=== PATIENT | male | born 1950 | race Caucasian/White ===

== ENCOUNTER 2018-01-06 14:00 | Emergency (ER) | payer MEDICARE ==
[~2018-01-06] VITALS: Ht 177.8 cm; Wt 69.5 kg
[2018-01-06 14:19] VITALS: BP 147/83; Ht 177.8 cm; Wt 69.5 kg
[2018-01-06 14:59] LABS: BASOPHILS 0.2 % (0-2); EOSINOPHILS 0.5 % (0-7); HEMATOCRIT 34.6 % (42.0-54.0); HEMOGLOBIN 11.2 g/dL (13.5-17.5); IMMATURE GRANULOCYTES 0.3 % (0-5); LYMPHOCYTES 18.2 % (15-50); MCH 30.2 pg (26.0-34.0); MCHC 32.4 g/dL (31.0-37.0); MCV 93.3 fL (80.0-100.0); MEAN PLATELET VOLUME 11.3 fL (7.4-10.4); MONOCYTES 11.1 % (2-11); NEUTROPHILS 69.7 % (40-80); PLATELET COUNT 181 10x3/uL (130-400); RBC 3.71 10x6/uL (4.20-6.10); RDW 17.1 % (11.5-14.5)
[2018-01-06 15:15] LABS: ALBUMIN 3.6 g/dL (3.4-5.0); ANION GAP 17.1 mmol/L (8-16); BILIRUBIN - TOTAL 0.48 mg/dL (0.2-1.3); CALCIUM 8.6 mg/dL (8.5-10.1); CARBON DIOXIDE 28.3 mmol/L (21.0-32.0); CREATININE - SERUM 11.3 mg/dL (0.6-1.3); POTASSIUM - SERUM 4.4 mmol/L (3.5-5.1); PROTEIN - SERUM 7.6 g/dL (6.4-8.2)
== END 2018-01-06 18:46 | disposition home or self-care (01) ==
LOC: D.ER 14:00 → EDBD 14:00 → D.ER 18:46
PROVIDERS: Family Medicine
DX: K29.70 Gastritis, unspecified, without bleeding (principal); K59.00 Constipation, unspecified; I12.9 Hypertensive chronic kidney disease with stage 1 through stage 4 chronic kidney disease, or unspecified chronic kidney disease; N18.9 Chronic kidney disease, unspecified; Z99.2 Dependence on renal dialysis

== ENCOUNTER 2018-06-04 20:31 | Inpatient (IN) | payer MEDICARE ==
[~2018-06-04] VITALS: Ht 177.8 cm; Wt 66.6 kg
--- NOTE | ~2018-06-04 | HEMODYNAMI ---
PATIENT:PETEY REDDY MEDICAL RECORD: [id number] : 46 [address] [id number] ADMISSION DATE: 06/04/18 Generatedon:06/05/201811:10 Patient name: PETEY REDDY Patient #: [id number] SSN: : 1950 Date of study: 06/05/2018 Page: Of Hemodynamic Procedure Report Patient Data Patient Demographics Procedure consent was obtained First Name: PETEY Gender: Male Last Name: BARRY : 1950 Patient #: [id number] Age: 68 year(s) Race: Unknown Additional ID: [id number] Contact details [address]: [address] [place] [address] State: [place] City: [place] Zip code: [address] Past Medical History Allergies: No known allergies Admission Admission Data Admission Date: 06/04/2018 Admission Time: 20:57 Room #: 2136 Lab Results Lab Result Date: 06/05/2018 Lab Result Time: 0:00 Biochemistry Name Units Result Min Max BUN mg/dl 52 --(----)-* 7 18 Creatinine mg/dl 12.4 --(----)-* 0.6 1.3 CBC Name Units Result Min Max Hemoglobin g/dl 11.1 *-(----)-- 13.5 17.5 Procedure Procedure Types Cath Procedure Diagnostic Procedure LHC Coronaries w/Grafts Sedation Charges Moderate Sedation up to 15 minutes PCI Procedure AMI/SVG/SAND CONTROL WORKER PTCA or Stent SVG-BMS/WINSTON Initial Procedure Description Procedure Date Procedure Date: 06/05/2018 Procedure Start Time: 10:36 Procedure End Time: 11:05 Procedure Staff Name Function Landen Rodrigues MD Performing Physician Dusty Angela RT Scrub Hugh Moe RT Scrub Rosemarie Posey RT Monitor Itzel Field RN Nurse Procedure Data Cath Procedure Fluoroscopy Diagnostic fluoroscopy Total fluoroscopy Time: 9.2 time: 9.2 min min Diagnostic fluoroscopy Total fluoroscopy dose: 636 dose: 636 mGy mGy Contrast Material Contrast Material Type Amount (ml) Isovue 300 157 Entry Location Entry Primary Successful Side Size Upsize Upsize Entry Closure Succes sful Closure Location (Fr) 1 (Fr) 2 (Fr) Remarks Device Remarks Femoral Right 5 Fr vein Femoral Right 5 Fr 6 Fr Exoseal artery Short Estimated blood loss: 10 ml Diagnostic catheters Device Type Used For End Catheter Placement MULTIPACK JL 4.0 5Fr Procedure catheter MULTIPACK 3DRC 5Fr Procedure catheter DIAGNOSTIC AR1 MOD 5Fr Procedure catheter ([id number]) DIAGNOSTIC AL2 5Fr Procedure catheter ([id number]) DIAGNOSTIC LCB 5Fr Procedure catheter (014691G) MULTIPACK Pigtail 5 Fr Procedure catheter Procedure Complications No complications Procedure Medications Medication Administration Route Dosage 0.9% NaCl I.V. 100 ml/hr Oxygen etCO2 Nasal cannula 2 l/min Lidocaine 2% added to field 20 Heparin Flush Bag added to field 2 bags (1000units/500ml NS) Versed I.V. 2 mg Fentanyl I.V. 50 mcg Versed I.V. 2 mg Fentanyl I.V. 50 mcg Heparin Bolus I.V. 5000 units Plavix P.O. 75 mg Hemodynamics Rest HGB: 11.1 (g/dl) Heart Rate: 73 (bpm) Snapshots Pre Cath Intra NCS Post Cath Vital Signs Time Heart Resp SPO2 etCO2 NIBP (mmHg) Rhythm Pain Sedation Rate (ipm) (%) (mmHg) Status Level (bpm) 10:21:51 71 12 100 26 164/85(108) NSR 0 (11) 10(A) , No pain 10:26:17 68 14 100 29 166/85(105) NSR 0 (11) 10(A) , No pain 10:30:41 70 13 100 29.8 166/92(114) NSR 0 (11) 10(A) , No pain 10:35:03 69 14 100 36.5 158/91(105) NSR 0 (11) 10(A) , No pain 10:39:23 69 11 100 33.4 158/90(105) NSR 0 (11) 9(A) , No pain 10:43:44 72 10 100 30 142/80(102) NSR 0 (11) 10(A) , No pain 10:48:00 78 11 100 30 113/79(104) NSR 0 (11) 9(A) , No pain 10:52:07 73 11 100 25.3 127/77(99) NSR 0 (11) 9(A) , No pain 10:56:19 87 13 100 20.9 131/79(108) NSR 0 (11) 9(A) , No pain 11:00:29 88 11 100 21.6 150/93(124) NSR 0 (11) 10(A) , No pain 11:04:45 96 12 100 39.5 160/109(130) NSR 0 (11) 10(A) , No pain Medications Time Medication Route Dose Verified Delivered Reason Notes Effectiveness by by 10:25:52 0.9% NaCl I.V. 100 Landen Itzel used for ml/hr [facility] procedure MD PAULINO 10:25:58 Oxygen etCO2 2 Landen Itzel used for Nasal l/min [place] [facility] procedure cannula MD PAULINO 10:26:04 Lidocaine 2% added 20ml Landen Jcory for local to vial [facility] anesthetic field MD ASENCIO 10:26:10 Heparin Flush added 2 Landen Landen used for Bag to bags [facility] procedure (1000units/500ml field MD ASENCIO NS) 10:38:03 Versed I.V. 2 mg Landen Itzel for sedation [facility] MD, RN 10:38:09 Fentanyl I.V. 50 Landen Itzel for sedation mcg [facility] MD, RN 10:42:59 Versed I.V. 2 mg Landen Itzel for sedation [facility] MD, RN 10:43:05 Fentanyl I.V. 50 Landen Itzel for sedation [facility] MD, RN 10:52:56 Heparin Bolus I.V. 5000 Landen Itzel for verif ied units [facility] anticoagulation with Dr. MD PAULINO [place] 10:55:27 Plavix P.O. 75 mg Landen Robbins for [facility] antiplatelet MD PAULINO therapy Procedure Log Time Note 9:52:11 Signed procedure consent form obtained from patient. 9:52:13 Diagnostic Cath status Elective 9:52:14 Itzel Field RN sent for patient. Start room use. 10:07:49 Patient received from Med II to CCL 1 Alert and oriented. Tansferred to table in Supine position. 10:07:50 Warm blankets applied, and cherise hugger turned on for patient comfort. 10:07:51 Correct patient and procedure confirmed by team. 10:07:51 ECG and BP/O2 sat monitors applied to patient. 10:08:00 H&P Date Dictated: 06/04/2018 Within 30 days and on chart.. 10:08:01 Pre-procedure instructions explained to patient. 10:08:01 Pre-op teaching completed and patient verbalized understanding. 10:08:02 Family unavailable. 10:08:04 Patient NPO since Midnight. 10:08:11 Patient allergic to No known allergies 10:08:34 Lab Result : BUN 52 mg/dl 10:08:34 Lab Result : Hemoglobin 11.1 g/dl 10:08:34 Lab Result : Creatinine 12.4 mg/dl 10:18:42 Is the patient allergic to Iodine/contrast media? No. 10:18:44 Is patient on blood thinner?No 10:18:45 Patient diabetic? No. 10:18:49 Previous problem with sedation/anesthesia? No ? 10:18:50 Snore? No 10:18:51 Sleep apnea? No 10:18:52 Deviated septum? No 10:18:52 Opens mouth fully? Yes 10:18:53 Sticks out tongue? Yes 10:18:54 Airway obstruction? No ? 10:18:57 Dentures? No ? 10:19:00 Pre procedure: right dorsailis pedis pulse Doppler 10:19:04 Pre procedure: left dorsailis pedis pulse Doppler 10:19:31 IV started by Itzel Field RN inright hand with a 22 gauge IV catheter with 0.9% NaCl at KVO. 10:19:32 Lab results completed and on chart. 10:19:37 Right groin area was prepped with chlora-prep and draped in sterile fashion 10:20:01 Alarms reviewed by R. N. 10:20:02 Sharps counted by scrub and verified by R.N. 10:20:16 Use device set Femoral Dx 10:20:18 ACIST Syringe (70363) opened to sterile field. 10:20:19 Bag Decanter (2002S) opened to sterile field. 10:20:20 ACIST Hand Control (72071) opened to sterile field. 10:20:20 ACIST Manifold (79265) opened to sterile field. 10:20:21 Tegaderm 4 x 4 (1626W) opened to sterile field. 10:20:30 SHEATH 5FR [place] (CQH586) opened to sterile field. 10:20:31 Medline Cath Pack ([id number]) opened to sterile field. 10:20:31 DIAGNOSTIC WIRE .035 260cm J wire (745916) opened to sterile field. 10:20:32 DIAGNOSTIC Multipack 5Fr catheter set (KT1184) opened to sterile field. 10::39 Baseline sample Acquired. 10:20:39 Vital chart was started 10::43 Rhythm: sinus rhythm 10::44 Full Disclosure recording started 10:25:52 0.9% NaCl 100 ml/hr I.V. was administered by Itzel Field RN; used for procedure; 10:25:58 Oxygen 2 l/min etCO2 Nasal cannula was administered by Itzel Field RN; used for procedure; 10:26:04 Lidocaine 2% 20ml vial added to field was administered by Landen Rodrigues MD; for local anesthetic; 10:26:10 Heparin Flush Bag (1000units/500ml NS) 2 bags added to field was administered by Landen Rodrigues MD; used for procedure; 10:27:40 IV right hand D/C'd due to infiltration. 10:28:04 DR. RODRIGUES WILL ACCESS VEIN FOR MEDS. 10:30:38 --------ALL STOP TIME OUT------ 10::39 Final Timeout: patient, procedure, and site verified with staff and physician. All members of the team are in agreement. 10:30:43 Right groin site verified by team. 10:30:48 Fire Safety Assessment: A--An alcohol-based skin anteseptic being used preoperatively., C--Open oxygen or nitrous oxide is being used., D--An ESU, laser, or fiber-optic light is being used. 10:30:50 Physical assessment completed. ASA score P 2 - A patient with mild systemic disease as per Landen Rodrigues MD. 10:30:53 Sedation plan: IV Moderate Sedation Medication:Versed, Fentanyl 10:36:09 Procedure started. 10:36:13 Local anesthetic to right femoral artery with Lidocaine 2% by Landen Rodrigues MD.INITIAL ACCESS ONLY 10:36:24 Zero performed for pressure channel P1 10:36:37 A 5 Fr sheath was inserted into the Right Femoral vein 10:36:49 A 5 Fr sheath was inserted into the Right Femoral artery 10:37:07 SHEATH 5FR [place] (UOM920) opened to sterile field. 10:38:03 Versed 2 mg I.V. was administered by Itzel Field RN; for sedation; 10:38:09 Fentanyl 50 mcg I.V. was administered by Itzel Field RN; for sedation; 10:38:42 A MULTIPACK JL 4.0 5Fr catheter was advanced over the wire and used for Procedure. 10:39:27 LCA angiography performed. 10:39:30 Catheter removed. 10:40:02 A MULTIPACK 3DRC 5Fr catheter was advanced over the wire and used for Procedure. 10:40:46 RCA angiography performed. 10:41:58 JAMISON to LAD angiography performed. 10:42:59 Versed 2 mg I.V. was administered by Itzel Field RN; for sedation; 10:43:05 Fentanyl 50 mcg I.V. was administered by Itzel Field RN; for sedation; 10:43:31 Catheter removed. 10:43:36 A DIAGNOSTIC AR1 MOD 5Fr catheter ([id number]) was advanced over the wire and used for Procedure. 10:45:11 UNABLE TO ENGAGE 10:45:12 Catheter removed. 10:45:50 A DIAGNOSTIC AL2 5Fr catheter (854269S) was advanced over the wire and used for Procedure. 10:49:08 UNABLE T O ENGAGE 10:49:09 Catheter removed. 10:49:37 A DIAGNOSTIC LCB 5Fr catheter (069582V) was advanced over the wire and used for Procedure. 10:49:44 SVG to Diag angiography performed. 10:50:04 Catheter removed. 10:50:37 A MULTIPACK Pigtail 5 Fr catheter was advanced over the wire and used for Procedure. 10:51:23 CATH REMOVED 10:51:28 INFLATOR Merit BasixCompak (ZJ1021) opened to sterile field. 10:51:28 WHISPER 300cm guide wire ([id number]) opened to sterile field. 10:51:29 SHEATH 6FR [place] (CQS201) opened to sterile field. 10:51:41 GUIDE 6FR LCB catheter (LA6LCB) opened to sterile field. 10:51:59 Sheath upsized to a 6 Fr Short. 10:52:56 Heparin Bolus 5000 units I.V. was administered by Itzel Field RN; for anticoagulation; verified with Dr. Aparicio 10:53:11 6 Fr LCB guide catheter was inserted over the wire 10:55:25 WHISPER 300 wire advanced. 10:55:27 Plavix 75 mg P.O. was administered by Itzel Field RN; for antiplatelet therapy; 10:56:31 Place stent Inflation Number: 1 A INTEGRITY OTW 3.5 X 30 stent ([id number]) was prepped and advanced across the Aorta Left -> Mid LAD. The stent was deployed at 14 KARLY for 0:15 (min:sec). 10:56:53 Stent catheter was removed intact over wire. 10:59:32 Place stent Inflation Number: 2 A INTEGRITY RX 3.5 x 18 stent ([id number]) was prepped and advanced across the Aorta Left -> Mid LAD. The stent was deployed at 14 KARLY for 0:15 (min:sec). 11:00:10 Stent catheter was removed intact over wire. 11:00:11 Wire removed. 11:00:11 Guide catheter removed. 11:01:19 Procedure type changed to Cath procedure, Diagnostic procedure, LHC, Coronaries w/Grafts, Sedation Charges, Moderate Sedation up to 15 minutes, PCI procedure, AMI/SVG/SAND CONTROL WORKER PTCA or Stent, SVG-BMS/WINSTON Initial 11:01:33 EXOSEAL 6Fr (EX600) opened to sterile field. 11:01:44 Sheath removed intact; hemostasis achieved with Exoseal to the Right Femoral artery. 11:01:47 Procedure ended.(Physican Out) 11:03:02 Contrast amount:Isovue 300 157ml. 11:03:08 Fluoroscopy time 09.20 minutes. 11:03:12 Fluoroscopy dose: 636 mGy 11:03:12 Flurop Dose total: 636 11:03:29 5FR SHEATH VENOUS was sutured in with 2-0 SILK. 11:03:40 Post-op/insertion site Right Femoral artery dressed using a 4 x 4 and Tegaderm. 11:03:43 Post-procedure physical assessment completed. ASA score P 2 - A patient with mild systemic disease as per Landen Rodrigues MD. 11:03:46 Post procedure rhythm: unchanged. 11:03:48 Estimated blood loss: 10 ml 11:03:49 Post procedure instruction explained to patient.Patient verbalizes understanding. 11:03:50 Patient needs reinforcement of post procedure teaching. 11:05:17 Procedure and supply charges have been captured, reviewed, submitted and are correct. 11:05:19 Procedure Complication : No complications 11:05:21 Vital chart was stopped 11:05:22 See physician's report for complete and final results. 11:05:23 Report given to PCU. 11:05:29 Patient transfered to PCU with Bed. 11:05:31 Procedure ended. 11:05:31 Full Disclosure recording stopped 11:05:34 End room use (Document Last) Intervention Summary Intervention Notes Time ActionType Lesion and Equipment Action# Pressure Duration Attributes Used 10:56:31 Place stent Aorta Left INTEGRITY 1 14 00:15 -> Mid LAD OTW 3.5 X 30 stent ([id number]) 10:59:32 Place stent Aorta Left INTEGRITY RX 2 14 00:15 -> Mid LAD 3.5 x 18 stent ([id number]) Device Usage Item Name Manufacture Quantity Catalog Hospital Part Current Minimal Lot# / Number Charge Number Stock Stock Serial# Code ACIST Acist 1 77724 214664 261155 420204 20 Syringe Medical (53481) Systems Inc Bag Decanter Microtek 1 2001S 580606 62368 838444 5 (2001S) Medical Inc. ACIST Hand Acist 1 75951 441668 537442 110287 5 Control Medical (71624) Systems Inc ACIST Acist 1 66538 816203 450976 487517 5 Manifold Medical (74013) Systems Inc Tegaderm 4 x 3M 1 1626W 118931 386500 330312 5 4 (1626W) SHEATH 5FR Terumo 2 JRP123 870420 669332 850963 5 [place] (OEA332) Medline Cath Medline 1 [id number] 523292 94360 825172 5 Pack ([id number]) DIAGNOSTIC St Kwame 1 886616 380792 907522 775008 30 WIRE .035 260cm J wire (974522) DIAGNOSTIC Cardinal 1 KE7432 182281 97991 126708 30 Multipack Health 5Fr catheter set (CL8917) MULTIPACK JL Cardinal 1 962752 5 4.0 5Fr Health catheter MULTIPACK Cardinal 1 118973 5 3DRC 5Fr Health catheter DIAGNOSTIC Cardinal 1 [id number] 593348 459999 055336 15 AR1 MOD 5Fr Health catheter (831901N) DIAGNOSTIC Cardinal 1 974486V 288988 067305 489538 15 AL2 5Fr Health catheter (671609R) DIAGNOSTIC Cardinal 1 895835E 959082 803018 106742 5 LCB 5Fr Health catheter (077097E) MULTIPACK Cardinal 1 218254 5 Pigtail 5 Fr Health catheter INFLATOR Merit 1 VF7900 738420 523309 646812 15 [employer] Medical BasixCompak (SI3625) WHISPER Bass 1 [id number] 115738 855349 033307 5 300cm guide Vascular wire ([id number]) SHEATH 6FR Terumo 1 FYO807 437760 634634 629314 40 [place]brook (ROR968) GUIDE 6FR Medtronic 1 LA6LCB 434563 12585 939394 1 LCB catheter (LA6LCB) INTEGRITY Medtronic 1 [id number] 768103 674283 059071 2 [id number] OTW 3.5 X 30 stent ([id number]) INTEGRITY RX Medtronic 1 [id number] 385337 428335 649039 5 [id number] 3.5 x 18 stent ([id number]) EXOSEAL 6Fr Cardinal 1 EX600 243102 123243 666038 10 (EX600) Health Signature Audit [place] Stage Time Signature Unsigned Intra-Procedure 06/05/2018 Rosemarie Posey 11:10:43 AM RT(R) Signatures Monitor : Rosemarie Poesy Signature : RT Date : Time : [place] [id number] [place] [address]
[2018-06-04 22:44] VITALS: BP 164/88
--- NOTE | 2018-06-04 22:50 | NUR ---
RECEIVED FROM ER VIA . AMBULATED TO THE BED WITH ASSISTANCE. ALERT/ORIENTED X3. DENIES CHEST PAIN. IV IN RT FA INTACT SL. LEFT UA FISTULA NOTED WITH GOOD BRUIT/THRILL. VITAL SIGNS TAKEN SHOWS B/P 164/88. STATED HE HAD TAKEN HIS MORNING B/P MEDICATIONS BUT NOT THE PM'S. REQUESTED A SNACK, STATED HE HAD NOTHING TO EAT SINCE NOON. ORIENTED TO THE ROOM AND CALL LIGHT.
--- NOTE | 2018-06-04 23:20 | NUR ---
STATED HE IS HAVING CHEST PAIN. COULD ONLY EAT 1/2 OF THE SANDWICH. PLACED CALL TO RENAL.
--- NOTE | 2018-06-04 23:56 | NUR ---
C/O CHEST PAIN LEVEL 8 ON NUMBER SCALE DESCRIBED SHARP, SHOOTING. CALLED AND RECEIVED ORDERS FROM ELVIA PRIETO APN TO GIVE MORPHINE 4MG IV Q 4HR PRN AND ZOFRAN 4MG Q4H IV PRN FOR NAUSEA. TO GIVE HIS B/P MEDICATIONS FOR ELEVATED B/P.
[2018-06-05] MEDS ORDERED: FOLIC ACID1 MG PO (00:24)
[2018-06-05] MEDS ORDERED: HYDRALAZINE HCL25 MG PO (00:25)
[2018-06-05] MEDS ORDERED: PLAVIX75 MG PO (00:25)
[2018-06-05] MEDS ORDERED: ZYLOPRIM100 MG PO (00:26)
[2018-06-05] MEDS ORDERED: RENVELA800 MG PO (00:27)
[2018-06-05] MEDS ORDERED: LOPRESSOR25 MG PO (00:28)
[2018-06-05] MEDS ORDERED: MEGACE 20 MG TA20 MG PO (00:29)
[2018-06-05] MEDS ORDERED: PROTONIX40 MG PO (00:38)
[2018-06-05] MEDS ORDERED: LIPITOR40 MG PO (00:39)
[2018-06-05] MEDS ORDERED: NITROQUICK0.4 MG SL (00:40)
[2018-06-05] MEDS ORDERED: CYCLOBENZAPRINE5 MG PO (00:41)
[2018-06-05] MEDS ORDERED: PHENERGAN25 M1 PO (00:43)
[2018-06-05 01:45] VITALS: BP 164/88; BMI 22.0
--- NOTE | 2018-06-05 02:12 | NUR ---
LYING ON RT SIDE WITH EYES CLOSED. RR EVEN U/L. NO S/S OF DISCOMFORT. CL IN REACH.
--- NOTE | 2018-06-05 02:30 | NUR ---
EKG DONE PER ORDER.
[2018-06-05 03:32] LABS: BASOPHILS 0 % (0-2); EOSINOPHILS 2.3 % (0-7); HEMATOCRIT 34.3 % (42.0-54.0); HEMOGLOBIN 11.1 g/dL (13.5-17.5); IMMATURE GRANULOCYTES 0.3 % (0-5); LYMPHOCYTES 24.9 % (15-50); MCH 29.8 pg (26.0-34.0); MCHC 32.4 g/dL (31.0-37.0); MEAN PLATELET VOLUME 11.5 fL (7.4-10.4); MONOCYTES 14.2 % (2-11); NEUTROPHILS 58.3 % (40-80); PLATELET COUNT 128 10x3/uL (130-400); RBC 3.73 10x6/uL (4.20-6.10); RDW 15.8 % (11.5-14.5); WBC 3.9 10x3/uL (4.8-10.8)
[2018-06-05 04:05] LABS: ALBUMIN 2.8 g/dL (3.4-5.0); ANION GAP 11.4 mmol/L (8-16); BILIRUBIN - TOTAL 0.34 mg/dL (0.2-1.3); CALCIUM 8.1 mg/dL (8.5-10.1); CARBON DIOXIDE 24.5 mmol/L (21.0-32.0); CREATININE - SERUM 12.4 mg/dL (0.6-1.3); POTASSIUM - SERUM 3.9 mmol/L (3.5-5.1); PROTEIN - SERUM 6.3 g/dL (6.4-8.2)
[2018-06-05 04:06] LABS: TROPONIN-I 0.42 ng/mL (0.000-0.060)
--- NOTE | 2018-06-05 04:40 | NUR ---
BEATER ENGINEER TAKING VS. DENIES PAIN OR ANY NEEDS. HAS CL IN REACH.
[2018-06-05 05:32] VITALS: BP 139/77
--- NOTE | 2018-06-05 08:36 | NUR ---
CONSENTS SIGNED BY PT AND PLACED ON CHART, INSTRUCTED PT TO REMAIN NPO.
--- NOTE | 2018-06-05 08:49 | NUR ---
PRE-OP MEDS GIVEN AT THIS TIME. PT'S RT FA IV NOT WORKING, TRIED TO START IV X2 STICKS, WAS UNSUCCESSFUL. NOTIFIED CERTIFIED OPHTHALMIC TECHNICIAN AND WAS INFORMED THAT THEY COULD GET IV IN CERTIFIED OPHTHALMIC TECHNICIAN. UNABLE TO GIVE BENADRYL IV.
[2018-06-05 09:31] VITALS: BP 121/85
--- NOTE | 2018-06-05 10:01 | NUR ---
PT TRANSFERED TO ROOM SERVICE SERVER AT THIS TIME.
--- NOTE | 2018-06-05 11:32 | NUR ---
RECEIVED PT BACK TO ROOM 2136 VIA BED, VITAL SIGNS STABLE, PLACED PT ON FREQUENT VITAL SIGNS. RT GROIN DRESSING CDI WITH PULSE PALPABLE. VENOUS SHEATH TO RT GROIN NOTED NOW INFUSING NS AT 100CC/HR. PT DROWSY BUT EASILY AROUSES TO VOICE. INSTRUCTED PT TO REMAIN FLAT FOR 4HOURS. PT DENIES ANY NEEDS AT THIS TIME. CALL LIGHT IN REACH, NAD NOTED, WILL CONTINUE TO MONITOR.
--- NOTE | 2018-06-05 11:58 | NUR ---
NO CHANGES FROM PREVIOUS ASSESSMENT. PT STILL SLEEPING
--- NOTE | 2018-06-05 12:55 | NUR ---
WAS GOING TO CHECK ON PT AND THIS NURSE NOTICED THAT PT WAS SITTING UP EATING HIS LUNCH, INFORMED PT THAT HE NEEDED TO REMAIN FLAT FOR 2HOURS. RT GROIN ASSESSED AT THIS TIME NOTICED THAT PT HAD DEVELOPED A HEMATOMA TO RT GROIN. ORGAN PIPE FINISHER TEAM NOTIFIED AND CHACORTA APPLIED FEMSTOP TO RT GROIN, TO REMAIN IN PLACE FOR 1HR AND PT MUST LAY FLAT FOR 4HRS.PT VERBALIZED UNDERSTANDING, WILL CONTINUE TO MONITOR PT.
[2018-06-05 13:59] VITALS: BMI 21.9
--- NOTE | 2018-06-05 15:48 | NUR ---
ADMINISTERED 2MG OF MORPHINE FOR PAIN LEVEL OF 9/10. PT DENIES ANY OTHER NEEDS AT THIS TIME. NO CHANGES TO RT GROIN.
--- NOTE | 2018-06-05 16:34 | NUR ---
NO CHANGES FROM PREVIOUS ASSESSMENT. PT RATES PAIN LEVEL NOW 7/10. DENIES ANY NEEDS AT THIS TIME. CALL LIGHT IN REACH, NAD NOTED, WILL CONTINUE TO MONITOR.
[2018-06-05 17:06] VITALS: BP 131/76
--- NOTE | 2018-06-05 19:10 | NUR ---
ALERT/AWAKE DENIES PAIN OR ANY NEEDS. RT GROIN HEART CATH SITE DRSG HAS WITH SOME DRIED BLOOD. RT GROIN IV WITH NS INFUSING AT 20ML/HR. ORIENTED TO CALL LIGHT FOR ANY NEEDS.
[2018-06-05 20:00] VITALS: BP 110/58
--- NOTE | 2018-06-05 21:20 | NUR ---
ADMIN SCHED PO MED WITH SIPS OF WATER. REQUESTED LIGHTS OFF TO SLEEP.
[2018-06-06] VITALS: BP 111/62
--- NOTE | 2018-06-06 05:00 | NUR ---
ASSESSED RIGHT GROIN CATH SITE, NO BLEEDING NOTED. DENIES ANY NEEDS.
[2018-06-06 05:20] VITALS: BP 99/50
--- NOTE | 2018-06-06 07:36 | NUR ---
AM ROUNDS- PT RESTING COMFORTABLY IN BED, EASILY AROUSES TO VOICE. PT A/O X4, RESP EVEN AND NONLABORED ON RA. RT GROIN BRUISED A LITTLE BUT NO SIGNS OF BLEEDING OR HEMATOMA. RT GROIN VENOUS SHEATH INFUSING NS AT KVO. PT DENIES ANY NEEDS AT THIS TIME. CALL LIGHT IN REACH, NAD NOTED, WILL CONTINUE TO MONITOR.
--- NOTE | 2018-06-06 08:37 | NUR ---
AM MEDS GIVEN AT THIS TIME. ALSO GAVE 2MG OF MORPHINE FOR PAIN LEVEL OF 8/10. PT DENIES ANY OTHER NEEDS AT THIS TIME, CALL LIGHT IN REACH, NAD NOTED,W ILL CONTINUE TO MONITOR.
--- NOTE | 2018-06-06 08:47 | NUR ---
CALLED BRANDY/WAQAS WITH RENAL TO ADVISE HER THIS PATIENT IS ADMITTED TO DR. PINEDA BUT NO ONE FROM RENAL HAS SEEN PATIENT WITH ADMIT DATE OF 06/04/18. VERBAL ACKNOWLEDGEMENT RETURNTED
[2018-06-06 09:17] VITALS: BP 110/55
--- NOTE | 2018-06-06 10:59 | NUR ---
NOTIFIED BRANDY DIALLO THAT PT IS ASKING WHEN HE WILL GET DIALYISIS, SINCE HE USUALLY GETS DIALYISIS MWF. BRANDY DIALLO STATED THAT DOCTOR JIM WILL SEE PT TODAY.
[2018-06-06 11:46] VITALS: BP 120/70
--- NOTE | 2018-06-06 12:00 | NUR ---
PT TRANSFERED TO DIALYSIS AT THIS TIME VIA BED,NAD NOTED.
--- NOTE | 2018-06-06 13:19 | NUR ---
PT TRANSFERED BACK TO ROOM, DIALYSIS NURSE NOTIFIED THIS NURSE THAT THEY WERE UNABLE TO DUE DIALYSIS DUE TO FISTULA NOT WORKING. PT DENIES ANY NEEDS AT THIS TIME,. CALL LIGHT IN REACH,NAD NOTED, WILL CONTINUE TO MONITOR.
[2018-06-06 14:40] VITALS: Ht 177.8 cm; Wt 66.6 kg
--- NOTE | 2018-06-06 15:11 | NUR ---
NO CHANGES FROM PREVIOUS ASSESSMENT, PT TAKEN TO XRAY FOR BARIUM SWALLOW TEST AT THIS TIME.
[2018-06-06 15:46] VITALS: BP 133/50
[2018-06-06 20:00] VITALS: BP 133/67
--- NOTE | 2018-06-06 20:01 | NUR ---
INITIAL ASSESSMENT COMPLETED - PT A/O X4. PT SITTING UP IN BED, RR EVEN AND UL. DENIES BATHROOM NEEDS AT THIS TIME. NO C/O PAIN/DISCOMFORT. R GROIN IV C/D/I. NO FURTHER NEEDS NOTED AT THIS TIME, WCTM AND FOLLOW POC. CL IN REACH, SR UP X2, BED IN LOWEST POSITION.
[2018-06-07] VITALS: BP 128/71
--- NOTE | 2018-06-07 | NUR ---
PT AWARE OF NPO STATUS - CONENTS TO BE SIGNED IN THE AM. NO NEEDS NOTED AT THIS TIME. RR EVEN AND UL, NO S/S OF DISTRESS. RESTING QUIETLY IN BED. WILL CONTINUE TO ASSESS NEEDS. DENIES ANY PAIN/DISCOMFORT AT THIS TIME. CL IN REACH, SR UP X2, BED IN LOWEST POSITION.
[2018-06-07 04:00] VITALS: BP 127/70
[2018-06-07 06:11] LABS: BASOPHILS 0 % (0-2); EOSINOPHILS 2.8 % (0-7); HEMATOCRIT 33.2 % (42.0-54.0); HEMOGLOBIN 10.9 g/dL (13.5-17.5); IMMATURE GRANULOCYTES 0.2 % (0-5); LYMPHOCYTES 20.5 % (15-50); MCH 29.9 pg (26.0-34.0); MCHC 32.8 g/dL (31.0-37.0); MCV 91.2 fL (80.0-100.0); MEAN PLATELET VOLUME 10.4 fL (7.4-10.4); MONOCYTES 15.1 % (2-11); NEUTROPHILS 61.4 % (40-80); PLATELET COUNT 120 10x3/uL (130-400); RBC 3.64 10x6/uL (4.20-6.10); RDW 15.9 % (11.5-14.5); WBC 4.7 10x3/uL (4.8-10.8)
[2018-06-07 06:16] LABS: APTT 29.9 SECONDS (22.8-39.4); INR 1.33 (0.85-1.17)
[2018-06-07 06:19] LABS: ANION GAP 21.9 mmol/L (8-16); CALCIUM 7.6 mg/dL (8.5-10.1); CREATININE - SERUM 16.8 mg/dL (0.6-1.3); POTASSIUM - SERUM 4.9 mmol/L (3.5-5.1)
--- NOTE | 2018-06-07 08:00 | NUR ---
RECIEVED BEDSIDE REPORT. AM ROUNDS COMPLETED. PT JUST RETURNED FROM EGD WITH BIOPSY. RECIEVED REPORT MARGO. STATES SHE REMOVED VENOUS SHEET FROM GROIN AREA. AM MEDS GIVEN. AM MEALS ORDERED. PT DENIES ANY FURTHER NEEDS AT THIS TIME. WILL CPOC. CL IN REACH, BED IN LOW. WILL CTM.
[2018-06-07 12:31] VITALS: BP 132/79
--- NOTE | 2018-06-07 13:11 | NUR ---
PT FOUND WANDERING IN THE STREETS. THE POLICE WAS NOTIFIED AND THEY CALLED THE HOSPITAL. I WENT DOWN TO PICK PT BACK FROM THE MAIN ENTRANCE WITH TWO OTHER NURSES, BACK INTO THE FACILITY AND HIS ROOM. PT APPEARS DISORIENTED, PT HAS JUST HAD EGD DONE THIS AM. CALLED [facility] TO HELP REORIENT PT ABOUT HIS DIALYSIS DAYS. PT CURRENTLY STABLE AND HAS ACCEPTED TO REMAIN IN THE HOSPITAL. PT HAD PREVIOUSLY TOOK OUT HIS IV AND HAS REFUSED A NEW IV AT THIS TIME. PT CURRENTLY 68 SINUS ON TELE. CALLED ELVIA RANDLE TO NOTIFY HER ABOUT PT. NO BLEEDING FROM PT IV SITE NOTED, NO S/S OF DISTRESS, PT DENIES NEED FOR PAIN AT THIS TIME. WILL CTM. CL IN REACH, BED IN LOW.
--- NOTE | 2018-06-07 14:16 | NUR ---
Nutrition Follow Up: Chart reviewed. Pt scheduled for EGD today. Pt reported that he felt as if food was getting stuck in his throat. Diet: Renal Gastric Soft PO Intake: 39% meal avg BM: 06/06/18 Labs and meds reviewed Rec continue renal gastric soft diet with GENERAL MANAGER FARM recs for consistencies if needed. RD following.
--- NOTE | 2018-06-07 17:59 | NUR ---
Dialysis Coordinator: [facility] MWF. DAVID MUNOZ.
--- NOTE | 2018-06-07 19:45 | NUR ---
PT SITTING UP IN BED WITH EYES CLOSED RR- EVEN AND UNLABORED. HIMANSHU BED ALARM IN PLACE. PT DENIES ANY NEEDS OR PAIN At THIS TIME. BED LOW CALL LIGHT WITHIN REACH. WILL CONTINUE TO MONIOR.
[2018-06-07 20:00] VITALS: BP 145/69
[2018-06-07 20:02] VITALS: BP 145/69
[2018-06-08] VITALS: BP 169/96
[2018-06-08 00:03] VITALS: BP 151/88
--- NOTE | 2018-06-08 02:25 | NUR ---
PT RESTING IN BED WITH EYES CLOSED RR-EVEN AND UNLABORED. BED LOW CALL LIGHT WITHIN REACH. WILL CONTINUE TO MONITOR.
[2018-06-08 04:00] VITALS: BP 145/82
--- NOTE | 2018-06-08 04:20 | NUR ---
FOUND PT WONDERING AROUND IN HALLWAY. DIRECTED PT BACK TO ROOM AND IN BED. PT BED ALARM IN PLACE. PT RR-EVEN AND UNLABORED. PT COMPLAINS OF HEART BURN. BED LOW CALL LIGHT WITHIN REACH. WILL CONTINUE TO MONITOR.
--- NOTE | 2018-06-08 04:26 | NUR ---
SLIDE MAKER AT BEDSIDE TO OBTAIN VITALS, CALL LIGHT IN REACH. WILL CONTINUE WITH PLAN OF CARE.
[2018-06-08 04:27] VITALS: BP 145/82
--- NOTE | 2018-06-08 05:45 | NUR ---
22G IV ESTABLISHED IN PT'S RIGHT HAND. TV FLUSHES. STICKS X2. PT VOMITING CLEAR BLACK FOUL SMELLING VOMIT. PT COMPLAINS OF "HEART BURN." BED LOW CALL LIGHT WITHIN REACH. WILL CONTINUE TO MONITOR.
[2018-06-08 05:46] LABS: ANION GAP 30.9 mmol/L (8-16); CALCIUM 8.2 mg/dL (8.5-10.1); CREATININE - SERUM 18.2 mg/dL (0.6-1.3); POTASSIUM - SERUM 5.6 mmol/L (3.5-5.1); T4 THYROXIN - FREE 1.15 ng/dL (0.76-1.46); THYROID STIMULATING HORMONE 2.94 uIU/mL (0.36-3.74)
[2018-06-08 05:48] LABS: CARBON DIOXIDE 16.7 mmol/L (21.0-32.0)
--- NOTE | 2018-06-08 06:18 | NUR ---
PT COMPLAING OF "HEART BURN" IN EPIGASTRIC AREA. PAGED GI. WILL CONTINUE TO MONITOR.
--- NOTE | 2018-06-08 06:24 | NUR ---
DR BERNABE CALLEDBACK ORDERED CARAFATE AND PROTONIX 40MG/DAILY.
--- NOTE | 2018-06-08 07:39 | NUR ---
AM ROUNDS COMPLETED. VSS, PT STILL CONFUSED, AND HAS BEEN TRYING TO LEAVE THE FACILTY. PT SCHEDULED FOR DIALYSIS. THIS AM. RR UNLABORED, NO S/S OF DISTRESS. I HAVE TRIED ALL MORNING TO REORIENT THE PT TO TIME AND PLACE. WILL CTM. CL IN REACH. BED IN LOW.
--- NOTE | 2018-06-08 07:43 | NUR ---
PT OUT FOR DIALYSIS ON WHEELCHAIR. WILL CPOC.
--- NOTE | 2018-06-08 10:30 | NUR ---
PT HAVE A NEW ORDER FOR CARAFATE AND PROTONIX. MEDS NOT GIVEN YET. PT IN DIALYSIS. WILL ADMINISTER WHEN PT RETURN.
[2018-06-08 11:00] VITALS: BP 134/78
--- NOTE | 2018-06-08 12:30 | NUR ---
PT BACK FROM DIALYSIS BY WHEELCHAIR. MEDS GIVEN. PT CURRENTLY RESTING IN BED. PT STATES HE FEELS MUCH MORE BETTER AND DENIES ANY NEEDS AT THIS TIME. WILL CTM.
--- NOTE | 2018-06-08 16:53 | NUR ---
22 F TO RIGHT AC WITH ONE STICK WITH 22 G PER THIS NURSE.
--- NOTE | 2018-06-08 17:00 | NUR ---
PT FOUND THROWING UP BY LORA WALLACE. IV 4MG ZOFRAN GIVEN PER JOSE MURPHY. PT STATES HE FEELS LIKE THROWING UP, BUT NOTHING IS REALLY COMING OUT AT THIS MOMENT. WILL CTM.
--- NOTE | 2018-06-08 19:08 | NUR ---
Received patient in bed resting, alert and oriented x 4, left arm fistula (good bruit and thrill), PIV in Rt AC is SL, Right groin dressing post Cath procedure is C/D/I with large amount purplish bruising around site. Soft when palpated, no signs of hematoma. On room air, respirations easy and regular, no signs of distress. No voiced concerns at this time.
[2018-06-08 20:00] VITALS: BP 136/67
--- NOTE | 2018-06-08 23:26 | NUR ---
Resting quietly in bed, respirations easy and regular, no signs of distress.
[2018-06-09] VITALS: BP 146/78
[2018-06-09 04:00] VITALS: BP 140/53
[2018-06-09 06:27] LABS: CALCIUM 8.9 mg/dL (8.5-10.1)
[2018-06-09 06:28] LABS: ANION GAP 21.6 mmol/L (8-16); CARBON DIOXIDE 25.1 mmol/L (21.0-32.0); CREATININE - SERUM 13.5 mg/dL (0.6-1.3); POTASSIUM - SERUM 4.7 mmol/L (3.5-5.1)
[2018-06-09 08:15] VITALS: BP 141/87
--- NOTE | 2018-06-09 09:31 | NUR ---
RESTS IN BED WITH CALL LIGHT IN REACH. NO NEEDS VOICED. WILL MONITOR.
--- NOTE | 2018-06-09 12:22 | CN ---
PATIENT NAME:PETEY REDDY MEDICAL RECORD: [id number] : 46 LOCATION:. D.2136 ADMIT DATE: 06/06/18 ACCOUNT: [id number] CONSULTING PHYSICIAN: LINDA AVILES MD REFERRING PHYSICIAN: TY PINEDA MD DATE OF CONSULTATION: 06/05/2018 HISTORY OF PRESENT ILLNESS: A 68-year-old gentleman with a history of coronary artery disease, status post coronary artery bypass grafting, history of recurrent stenting, has history of chronic renal sufficiency, transferred here from [place] for higher level of care, being found to have positive enzymes. Currently pain free. Reports some effort and tolerance as of late. We are asked to see him concerning his cardiovascular status. PAST MEDICAL HISTORY: Includes; 1. History of chronic renal insufficiency. 2. Hypertension. 3. Dyslipidemia. MEDICATIONS: Include Flexeril 5 mg p.o. t.i.d., Phenergan 25 b.i.d. p.r.n., Plavix 75 every day, atorvastatin 40 every day, hydralazine 25 t.i.d., metoprolol 25 every day. SOCIAL HISTORY: Lives in [place]. Nonsmoker, nondrinker. No set of exercise program. Does try to stay active. PHYSICAL EXAMINATION: GENERAL: Pleasant, appears stated age. VITAL SIGNS: Blood pressure 139/77, pulse 79 and regular. HEENT: Normocephalic, atraumatic. NECK: No JVD or bruit. HEART: Regular with II/ systolic ejection murmur. LUNGS: Fairly good air excursion. ABDOMEN: Soft, nontender. EXTREMITIES: Pulses; decreased 1+. There is no edema. IMPRESSION: Acute coronary artery syndrome/ ofa-IS-fvgkwbxfm myocardial infarction. PLAN: For angiography, intervention based on above. TRANSINT:[id number] Voice Confirmation ID: [id number] DOCUMENT ID: [id number] LINDA AVILES MD at 1222 CC: [id number] DICTATION DATE: 06/05/18 0855 GRANTS DIRECTOR: 06/05/18 1044 [place] [address]
--- NOTE | 2018-06-09 12:22 | EC ---
PATIENT:PETEY REDDY DATE OF SERVICE: 06/04/18 SEX: M MEDICAL RECORD: [id number] DATE OF : [birth year] LOCATION:D.M2 D.213 AGE OF PATIENT: 68 ADMISSION DATE: 06/06/18 REFERRING PHYSICIAN: INTERPRETING PHYSICIAN: LINDA AVILES MD ECHOCARDIOGRAM REPORT ECHO CHARGES 4 ECHO COMPLETE Date: 06/05/18 CLINICAL DIAGNOSIS: ELEVATED TROPONIN ECHOCARDIOGRAPHIC MEASUREMENTS (adult normal given) AC root (d.<3.7cm) 3.5 cm LV Septum d (<1.2 cm> 1.5 cm Valve Excursion 0.7 cm LV Septum (systole) 1.9 cm Left Atria (s.<4.0cm> 3.0 cm LVPW d(<1.2cm) 1.4 cm RV (d.<2.3cm) 2.3 cm LVPW (sytole) 1.9 cm LV diastole(<5.6CM) 5.4 cm MV E-F(>70mm/sec) cm LV systole 3.3 cm LVOT Diameter 2.0 cm MV exc.(>10mm) cm Est.ejection fraction (50-75%) % DOPPLER: LVIT cm/sec A 107 cm/sec E 85.0 cm/sec LA cm/sec RVSP 30.0 mmHg LVOT 78.0 cm/sec AOP1/2T m/s Asc. Ao 280 cm/sec RVOT 64.0 cm/sec RA cm/sec PA 77.0 cm/sec AV Gradient Peak 32.0 mmHg AV Mean 17.3 mmHg AV Area 0.8 cm MV Gradient Peak 5.6 mmHg MV Mean 1.8 mmHg MV Area cm COMMENTS: Compliance Specialist: Antonino CUTLEROE Firing Pin Gauger: 3 Dr. Aparicio TAPE# PACS Pericardial Effusion N DATE OF SERVICE: 06/06/2018 Adequate 2-D echo, color flow and spectral Doppler, and M-Mode. LVH is present. LV internal dimensions are normal. Wall motion is normal. EF is greater than or equal to 55%. Aortic valve sclerosis is with mild stenosis by Doppler interrogation. Peak gradient of 30 mmHg, putting this in mild range. Left atrium is normal. Mitral valve shows no prolapse. Mild MR. Right-sided chamber is grossly normal. Mild TR. ECHOCARDIOGRAM REPORT [id number] PETEY REDDY TRANSINT:[id number] Voice Confirmation ID: [id number] DOCUMENT ID: [id number] LINDA AVILES MD at 1222 CC: [id number] DICTATION DATE: 06/06/18837 SUPERVISOR POWDERED METAL: 06/06/18 0933 ADM IN [facility] [address] [place] [address]
--- NOTE | 2018-06-09 12:22 | OP ---
PATIENT NAME: PETEY REDDY MEDICAL RECORD: [id number] :46 LOCATION:D.M2 D.2136 ADMISSION DATE:06/06/18 SURGEON: LINDA AVILES MD DATE OF OPERATION: 06/05/2018 PROCEDURE: Left heart catheterization, selective coronary angiography, right femoral artery approach. CATHETERS: A 5-Citizen [place] sheath, 5/4 left and right April, 5/4 pig. The procedure was well tolerated. We proceeded immediately to stenting of saphenous vein graft to circumflex. FINDINGS: Left ventriculography not performed. CORONARY ANATOMY: LEFT MAIN: Left main fills for a short time, basically totally occluded as is the [place] LAD and [place] circumflex. RIGHT CORONARY ARTERY: Totally occluded proximally. BYPASS GRAFTS: 1. JAMISON to LAD is widely patent. There is a small LAD distally with no discrete stenosis. 2. Saphenous vein graft to the circumflex. This fills a large circ territory as well as retrograde fashion fills the distal right. This has a long diffuse 80% stenosis from his ostium to the mid portion of the graft. PLAN: Intervention momentarily. DESCRIPTION OF PROCEDURE: A 5-Citizen [place] sheath was changed for a 5-Citizen [place] sheath. LCB guiding catheter provided excellent guide catheter support followed by 300 cm Whisper wire was placed across the tightly occluded LAD down this portion of vessel. Stents deployed were a 3.5 x 30 mm and a 3.5 x 18 mm, both Integrity evc-qump-fudruzl stent up to 14 atmospheres. Final angiography shows excellent resolution with basically resolution of the entire lesion from 80% up to 90% stenosis with no significant residual. ANDREW flow actually improved distally with improvement in collateral flow to the distal right as well. Sheath closed with ExoSeal device. The patient was previously on Plavix. Heparin was used in the lab. TRANSINT:[id number] Voice Confirmation ID: [id number] DOCUMENT ID: [id number] LINDA AVILES MD at 1222 CC: [id number] DICTATION DATE: 06/05/18 1116 SALES DEVELOPMENT MANAGER: 06/05/18 1238 [place] [address]
--- NOTE | 2018-06-09 12:30 | NUR ---
UPON ASSESSMENT THIS MORNING I NOTED PATIENT HAD NO PIV. PER LAKIA, CONDENSER SETTER WITH RENAL, NO NEED TO RESTART IV AT THIS TIME.
--- NOTE | 2018-06-09 17:07 | MORECARE ---
CASE MANAGEMENT DISCHARGE SUMMARY PATIENT: PETEY REDDY UNIT: [id number] ADM DATE: 06/06/18 AGE: 68 : 48 SEX: M ROOM/BED: D.2136 AUTHOR: YANNI ADAME PHYSICIAN: REFERRING PHYSICIAN: TY PINEDA MD DATE OF SERVICE: 06/09/18 Discharge Plan Patient Name: PETEY REDDY Facility: [facility]:[place] : 1950 Planned Disposition: Home with Home Health Anticipated Discharge Date: 06/10/18 Discharge Date: Expected LOS: 4 Initial Reviewer: [email or web address] Initial Review Date: 06/04/2018 Generated: 06/09/18 6:07 pm Coverage Notice Reviewer: [id number] Roel Egan Notice Issued Date-Time: 06/05/2018 15:15 Notice Type: Medicare Outpatient Observation Notice Notice Delivered To: Patient Relationship to Patient: Self Top Installer Name: Delivery Method: HAND - Hand Delivered Araceli Days: Prior Verbal Notification: Recipient Understood Notice: Yes Recipient Signature: Yes Med Rec Note Co-signed by Attending: Coverage Notice Comment: Reviewer: [id number] Roel Kemp Notice Issued Date-Time: 06/09/2018 14:55 Notice Type: Patient Choice Letter Notice Delivered To: Patient Relationship to Patient: Top Installer Name: Delivery Method: HAND - Hand Delivered Araceli Days: Prior Verbal Notification: Recipient Understood Notice: Yes Recipient Signature: Yes Med Rec Note Co-signed by Attending: Coverage Notice Comment: [facility] OR [facility]. Reviewer: [id number] Roel Kemp Notice Issued Date-Time: 06/09/2018 14:55 Notice Type: IM Discharge Notice Notice Delivered To: Patient Relationship to Patient: Top Installer Name: Delivery Method: HAND - Hand Delivered Araceli Days: Prior Verbal Notification: Recipient Understood Notice: Yes Recipient Signature: Yes Med Rec Note Co-signed by Attending: Coverage Notice Comment: Patient Name: PETEY REDDY Page [phone] at 1707 All edits/amendments must be made on the electronic document DICTATION DATE: 06/09/181706 [place]: JYOTSNA 06/09/181706 RPT#: [id number] DC DATE: STATUS: ADM IN [facility] [address] [place] [address] END OF REPORT
--- NOTE | 2018-06-09 17:19 | MORECARE ---
CASE MANAGEMENT DISCHARGE SUMMARY PATIENT: PETEY REDDY UNIT: [id number] ADM DATE: 06/06/18 AGE: 68 : 48 SEX: M ROOM/BED: D.2136 AUTHOR: YANNI ADAME PHYSICIAN: REFERRING PHYSICIAN: TY PINEDA MD DATE OF SERVICE: 06/09/18 Discharge Plan Patient Name: PETEY REDDY Facility: [facility]:[place] : 1950 Planned Disposition: Home with Home Health Anticipated Discharge Date: 06/10/18 Discharge Date: Expected LOS: 4 Initial Reviewer: [email or web address] Initial Review Date: 06/04/2018 Generated: 06/09/18 6:19 pm DCPIA - Discharge Planning Initial Assessment Updated by [email or web address]: Erick Kemp on 06/09/18 5:07 pm * Is the patient Alert and Oriented? Yes * How many steps to enter\exit or inside your home? * PCP DR. HAO RANDALL * Pharmacy [facility] * Preadmission Environment Home with Family * ADLs Independent * Equipment Rolling Walker * Other Equipment [employer] - MEDICAL EQUIPMENT PROVIDER * List name and contact numbers for known caregivers / representatives who currently or will assist patient after discharge: KELECHI REDDY, SISTER, [address] [address] * Verbal permission to speak to the caregivers and representatives has been obtained from the patient. Yes * Community resources currently utilized Home Health * Please name any agencies selected above. [facility] * Additional services required to return to the preadmission environment? No * Can the patient safely return to the preadmission environment? Yes * Has this patient been hospitalized within the prior 30 days at any hospital? No External Providers External Provider: [facility] Next Contact Date: 06/10/2018 Service Request Date: Service Type: Resolution: Reviewer: Comments: Coverage Notice Reviewer: [id number] Roel Egan Notice Issued Date-Time: 06/05/2018 15:15 Notice Type: Medicare Outpatient Observation Notice Notice Delivered To: Patient Relationship to Patient: Self Retail Support Associate Name: Delivery Method: HAND - Hand Delivered Araceli Days: Prior Verbal Notification: Recipient Understood Notice: Yes Recipient Signature: Yes Med Rec Note Co-signed by Attending: Coverage Notice Comment: Reviewer: [id number] Roel Kemp Notice Issued Date-Time: 06/09/2018 14:55 Notice Type: Patient Choice Letter Notice Delivered To: Patient Relationship to Patient: Retail Support Associate Name: Delivery Method: HAND - Hand Delivered Araceli Days: Prior Verbal Notification: Recipient Understood Notice: Yes Recipient Signature: Yes Med Rec Note Co-signed by Attending: Coverage Notice Comment: [facility] OR [facility]. Reviewer: [id number] Roel Kemp Notice Issued Date-Time: 06/09/2018 14:55 Notice Type: IM Discharge Notice Notice Delivered To: Patient Relationship to Patient: Retail Support Associate Name: Delivery Method: HAND - Hand Delivered Araceli Days: Prior Verbal Notification: Recipient Understood Notice: Yes Recipient Signature: Yes Med Rec Note Co-signed by Attending: Coverage Notice Comment: Last DP export: 06/09/18 4:07 pm Patient Name: PETEY REDDY Page 10954 at 1719 All edits/amendments must be made on the electronic document DICTATION DATE: 06/09/181718 SAW FEEDER: JYOTSNA 06/09/181718 RPT#: [id number] DC DATE: STATUS: ADM IN [facility] [address] [place] [address] END OF REPORT
--- NOTE | 2018-06-09 17:28 | MORECARE ---
CASE MANAGEMENT DISCHARGE SUMMARY PATIENT: PETEY REDDY UNIT: [id number] ADM DATE: 06/06/18 AGE: 68 : 48 SEX: M ROOM/BED: D.2136 AUTHOR: DEEPDOC PHYSICIAN: REFERRING PHYSICIAN: TY PINEDA MD DATE OF SERVICE: 06/09/18 Discharge Plan Patient Name: PETEY REDDY Facility: [facility]:[place] : 1950 Planned Disposition: Home with Home Health Anticipated Discharge Date: 06/10/18 Discharge Date: Expected LOS: 4 Initial Reviewer: [email or web address] Initial Review Date: 06/04/2018 Generated: 06/09/18 6:28 pm Comments DCP- Discharge Planning Updated by [id number]: Erick Kemp on 06/09/18 4:[address] Patient Name: PETEY REDDY Encounter No: [id number] : 1950 Primary Insurance: MEDICARE A & B Anticipated DC Date: 06-10-2018 Planned Disposition: Home with Home Health External Planned Provider: [facility] OFFICE DISCHARGE PLANNING NOTE: CM RECEIVED HOME HEALTH ORDER, MET WITH PT IN ROOM TO DISCUSS DISCHARGE PLANNING AND NEEDS. PT REPORTS LIVING AT HOME INDEPENDENTLY AND ALONE, BUT HAS BEEN STAYING WITH AND WILL RETURN TO HIS SISTER KELECHI'S HOME AT [address] PHONE [phone]. PT HAS ROLLING WALKER FROM [employer]. PT HAS [facility] HOME PRIOR TO ADMISSION FOR NURSING AND THERAPY SERVICES. PT GOES TO OUTPATIENT DIALYSIS IN [place], [facility], 1100AM, SISTER DRIVES TO AND FROM UNIT. CM DISCUSSED AVAILABILITY OF HOME HEALTH, REHAB SERVICES AND MEDICAL EQUIPMENT. PT WOULD LIKE HOME HEALTH WITH [facility] WHEN HE GETS HOME FOR THERAPY SERVICES. PROVIDER LISTING PROVIDED TO PT. CHOICE LETTER FOR [facility] SIGNED. PT REPORTS HIS SSITER KNOWS HE IS LEAVING TOMORROW AND WILL PICK HIM UP FOR DISCHARGE HOME TOMORROW. IMPORTANT MESSAGE FROM MEDICARE PROVIDED AND EXPLAINED. FOR DISCHARGE, FAX DISCHARGE INFORMATION TO [facility] OFF[facility] AT [phone], CALL AND NOTIFY ESTHER OF DISCHARGE HOME AT [phone]. Erick Viridiana, CASE MANAGEMENT DCPIA - Discharge Planning Initial Assessment Updated by [id number]: Erick Kemp on 06/09/18 5:07 pm * Is the patient Alert and Oriented? Yes * How many steps to enter\exit or inside your home? * PCP DR. HAO RANDALL * Pharmacy [facility] * Preadmission Environment Home with Family * ADLs Independent * Equipment Rolling Walker * Other Equipment [employer] - MEDICAL EQUIPMENT PROVIDER * List name and contact numbers for known caregivers / representatives who currently or will assist patient after discharge: KELECHI REDDY, SISTER, [address], [place]. [address] * Verbal permission to speak to the caregivers and representatives has been obtained from the patient. Yes * Community resources currently utilized Home Health * Please name any agencies selected above. [facility] * Additional services required to return to the preadmission environment? No * Can the patient safely return to the preadmission environment? Yes * Has this patient been hospitalized within the prior 30 days at any hospital? No Coverage Notice Reviewer: [id number] Roel Egan Notice Issued Date-Time: 06/05/2018 15:15 Notice Type: Medicare Outpatient Observation Notice Notice Delivered To: Patient Relationship to Patient: Self Caretaker Grounds Name: Delivery Method: HAND - Hand Delivered Araceli Days: Prior Verbal Notification: Recipient Understood Notice: Yes Recipient Signature: Yes Med Rec Note Co-signed by Attending: Coverage Notice Comment: Reviewer: [id number] Roel Kemp Notice Issued Date-Time: 06/09/2018 14:55 Notice Type: Patient Choice Letter Notice Delivered To: Patient Relationship to Patient: Caretaker Grounds Name: Delivery Method: HAND - Hand Delivered Araceli Days: Prior Verbal Notification: Recipient Understood Notice: Yes Recipient Signature: Yes Med Rec Note Co-signed by Attending: Coverage Notice Comment[facility]. Reviewer: [id number] Roel Kemp Notice Issued Date-Time: 06/09/2018 14:55 Notice Type: IM Discharge Notice Notice Delivered To: Patient Relationship to Patient: Caretaker Grounds Name: Delivery Method: HAND - Hand Delivered Araceli Days: Prior Verbal Notification: Recipient Understood Notice: Yes Recipient Signature: Yes Med Rec Note Co-signed by Attending: Coverage Notice Comment: Last DP export: 06/09/18 4:19 pm Patient Name: PETEY REDDY Page [phone] at 1728 All edits/amendments must be made on the electronic document DICTATION DATE: 06/09/181726 BEEF BREAKER: JYOTSNA 06/09/181726 RPT#: [id number] DC DATE: STATUS: ADM IN [facility] [address] [place] [address] END OF REPORT
--- NOTE | 2018-06-09 19:03 | NUR ---
PATIENT DOES NOT HAVE PASSCODE SET UP. SISTER CALLED ASKING FOR INFORMATION ABOUT PATIENT. I WENT IN AND ASKED IF I COULD GIVE HER INFO AND PATIENT STATED, "YES. SHE IS MY CAREGIVER."
[2018-06-09 20:00] VITALS: BP 150/79
--- NOTE | 2018-06-09 20:30 | NUR ---
REPORT RECEIVED. EVENING ROUNDS COMPLETED. PT SITTING UP IN BED WITH EYES OPEN, RR EVEN AND UNLABORED. BED IN LOW POSITION. INTRODUCED SELF TO PT. PT DENIES FURTHER NEEDS. NO S/S OF DISTRESS. CALL LIGHT IN REACH. WILL CTM.
--- NOTE | 2018-06-09 23:39 | NUR ---
PT LYING IN BED WITH EYES CLOSED, RR EVEN AND UNLABORED. BED IN LOW POSITION. 72 SINUS ON TELEMETRY. NO S/S OF DISTRESS NOTED. CALL LIGHT IN REACH. WILL CTM.
--- NOTE | 2018-06-09 23:56 | NUR ---
PT RESTING WITH EYES CLOSED. RESP EVEN AND REAGULAR. SR UP X2, CALL LIGHT WITHIN REACH.
[2018-06-10 00:05] VITALS: BP 146/81
[2018-06-10 00:27] VITALS: BP 149/81
[2018-06-10 05:02] VITALS: BP 151/82
[2018-06-10 05:03] LABS: BASOPHILS 0.3 % (0-2); EOSINOPHILS 1.3 % (0-7); HEMATOCRIT 35.9 % (42.0-54.0); HEMOGLOBIN 11.6 g/dL (13.5-17.5); IMMATURE GRANULOCYTES 0.3 % (0-5); LYMPHOCYTES 23.3 % (15-50); MCH 29.3 pg (26.0-34.0); MCHC 32.3 g/dL (31.0-37.0); MCV 90.7 fL (80.0-100.0); MEAN PLATELET VOLUME 11.3 fL (7.4-10.4); MONOCYTES 17.4 % (2-11); NEUTROPHILS 57.4 % (40-80); RBC 3.96 10x6/uL (4.20-6.10); WBC 3.9 10x3/uL (4.8-10.8)
[2018-06-10 05:06] LABS: PLATELET COUNT 159 10x3/uL (130-400)
[2018-06-10 05:22] LABS: ANION GAP 21.2 mmol/L (8-16); BILIRUBIN - TOTAL 0.34 mg/dL (0.2-1.3); CALCIUM 8.4 mg/dL (8.5-10.1); CARBON DIOXIDE 25.3 mmol/L (21.0-32.0); CREATININE - SERUM 15.3 mg/dL (0.6-1.3); POTASSIUM - SERUM 4.5 mmol/L (3.5-5.1); PROTEIN - SERUM 6.7 g/dL (6.4-8.2)
--- NOTE | 2018-06-10 06:43 | NUR ---
PT LYING IN BED WITH EYES OPEN, RR EVEN AND UNLABORED. PT CONTINUES TO REMOVE TELEMETRY LEADS AFTER EDUCATION PROVIDED. DENIES FURTHER NEEDS, CALL LIGHT IN REACH. WILL CTM.
[2018-06-10 07:49] VITALS: BP 155/86
--- NOTE | 2018-06-10 08:00 | NUR ---
RECIEVED BEDSIDE REPORT. AM ROUNDS COMPLETED. PT SITTING UP IN BED. VVS, [id number]. RR UNLABORED, NO S/S OF DISTRESS. PT IS READY FOR GASTRIC EMPTYING SCAN. PT STILL NPO TILL AFTER THE PROCEDURE. PT DENIES ANY NEEDS AT THIS TIME. WILL CPOC. AM MEDS NOT GIVEN AT THIS TIME, WILL CTM.
--- NOTE | 2018-06-10 08:10 | NUR ---
RECIEVED REPORT FROM BRYAN REED, THAT PT REOMOVED HIS IV, AND REFUSED GETTING ANOTHER ONE. ALSO PT REFUSED HIS TELEMETRY. WILL CTM.
--- NOTE | 2018-06-10 09:00 | NUR ---
PT OUT FOR GASTRIC EMPTYING SCAN. WILL CPOC.
--- NOTE | 2018-06-10 09:45 | NUR ---
ANNIE FROM IR STATES PT COULD NOT COMPLETE THE PROCEDURE. PT WHEELED BACK TO HIS ROOM. PT STATES HE HAS BEEN HAVING STOMACH ACHE ALL MORNING. PROTONIX AND CARAFATE GIVEN ALONGSIDE AM MEDS. WILL CTM. CL IN REACH, BED IN LOW.
--- NOTE | 2018-06-10 10:27 | NUR ---
Patient refused to continue the gastric emptying scan with approx. 30 mins left. Stated he was having severe burning in chest. Tried to elevate patient to see if that would help ease the burning. He stated it did not and wanted the exam stopped. Tried to convience the patient to continue so he could have a complete exam. He acknowledged his understanding that if the exam is terminated, then he would only have a partial study sent to the physician to read due to being unable to re-start the exam. He still refused to continue. Once the patient was moved from under the camera and sat up, he stated he felt much better.
--- NOTE | 2018-06-10 11:10 | NUR ---
PT OUT FOR DIALYSIS. WILL CPOC.
[2018-06-10] MEDS ORDERED: CARAFATE1 G PO (12:48)
[2018-06-10] MEDS ORDERED: ASPIRIN81 MG PO (12:48)
--- NOTE | 2018-06-10 13:39 | NUR ---
RESTING QUIETLY NAD NOTED
--- NOTE | 2018-06-10 16:34 | NUR ---
PATIENTS PHARMACY IN [place] CLOSED, DOES NOT REOPEN UNTIL TUESDAY. [facility] IN [place] IS CLOSED AT THIS TIME AND DOES NOT REOPEN UNTIL TUESDAY. NEEDED A 24 PHARMACY FOR PATIENT TO SOCIAL SCIENCE RESEARCH ASSISTANT HIS CARAFATE. CALLED [facility] [place]. [phone]
[2018-06-10 17:08] LABS: HEPATITIS C ANTIBODY <0.1 S/CO RAT (0.0-0.9)
--- NOTE | 2018-06-10 18:14 | NUR ---
READ DC INSTRUCTION TO PT. PT VERBALIZED UNDERSTANDING. TELE RETURNED TO UTILITY INSPECTOR, JUDY. ALL PT BELONGINGS SENT HOME WITH PT. PT WHEELED OUT OF THE FACILITY. CHARLY ASHTON BROTHER-JOE WILL GIVE PT RIDE HOME. PT DISCHARGED.
--- NOTE | 2018-06-12 11:19 | MORECARE ---
CASE MANAGEMENT DISCHARGE SUMMARY PATIENT: PETEY REDDY UNIT: [id number] ADM DATE: 06/06/18 AGE: 68 : 48 SEX: M ROOM/BED: D.2138 AUTHOR: YANNI ADAEM PHYSICIAN: REFERRING PHYSICIAN: TY PINEDA MD DATE OF SERVICE: 06/12/18 Discharge Plan Patient Name: PETEY REDDY Facility: [facility]:[place] : 1950 Planned Disposition: Home with Home Health Anticipated Discharge Date: 06/10/18 Discharge Date: 06/10/2018 Expected LOS: 4 Initial Reviewer: [email or web address] Initial Review Date: 06/04/2018 Generated: 06/12/18 12:19 pm Comments DCP- Discharge Planning Updated by [email or web address]: Erick Kemp on 06/12/18 10:[address] Patient Name: PETEY REDDY Encounter No: [id number] : 1950 Primary Insurance: MEDICARE A & B Anticipated DC Date: 06-10-2018 Planned Disposition: Home with Home Health External Planned Provider: [facility] DCP follow-up note: CM REVIEWED CHART, CM CALLED [facility] TO NOTIFY OF DISCHARGE HOME AT [phone]. MAKEBENJAMÍN INFORMED CM THAT THEY HAD RECEIVED ALL DISCHARGE INFORMATION OVER THE WEEKEND AND THE NURSE IS ADMITTING PT TODAY FOR HOME HEALTH. NO FURTHER NEEDS IDENTIFIED. Erick Kemp, CASE MANAGEMENT. Erick Kemp DCP- Discharge Planning Updated by [id number]: Erick Kemp on 06/09/18 4:[address] Patient Name: PETEY REDDY Encounter No: [id number] : 1950 Primary Insurance: MEDICARE A & B Anticipated DC Date: 06-10-2018 Planned Disposition: Home with Home Health External Planned Provider: [facility], [place] [facility] DISCHARGE PLANNING NOTE: CM RECEIVED HOME HEALTH ORDER, MET WITH PT IN ROOM TO DISCUSS DISCHARGE PLANNING AND NEEDS. PT REPORTS LIVING AT HOME INDEPENDENTLY AND ALONE, BUT HAS BEEN STAYING WITH AND WILL RETURN TO HIS SISTER KELECHI'S HOME AT [facility] PHONE [phone]. PT HAS ROLLING WALKER FROM [employer]. PT HAS [facility] AT HOME PRIOR TO ADMISSION FOR NURSING AND THERAPY SERVICES. PT GOES TO [facility]PATIENT [facility]IALYS[facility] [place], [facility], 1100AM, SISTER DRIVES TO AND FROM UNIT. CM DISCUSSED AVAILABILITY OF HOME HEALTH, REHAB SERVICES AND MEDICAL EQUIPMENT. PT WOULD LIKE HOME HEALTH WITH [facility] WHEN HE GETS HOME FOR THERAPY SERVICES. PROVIDER LISTING PROVIDED TO PT. CHOICE LETTER FOR [facility] SIGNED. PT REPORTS HIS SSITER KNOWS HE IS LEAVING TOMORROW AND WILL PICK HIM UP FOR DISCHARGE HOME TOMORROW. IMPORTANT MESSAGE FROM MEDICARE PROVIDED AND EXPLAINED. FOR DISCHARGE, FAX DISCHARGE INFORMATION TO [facility] AT [phone], CALL AND NOTIFY [facility] OF DISCHARGE HOME AT [phone]. Erick Kemp, CASE MANAGEMENT DCPIA - Discharge Planning Initial Assessment Updated by [id number]: Erick Kemp on 06/09/18 5:07 pm * Is the patient Alert and Oriented? Yes * How many steps to enter\exit or inside your home? * PCP DR. HAO RANDALL * Pharmacy [facility] * Preadmission Environment Home with Family * ADLs Independent * Equipment Rolling Walker * Other Equipment [employer] - MEDICAL EQUIPMENT PROVIDER * List name and contact numbers for known caregivers / representatives who currently or will assist patient after discharge: KELECHI REDDY, , [address] [address], [place]. [id number] * Verbal permission to speak to the caregivers and representatives has been obtained from the patient. Yes * Community resources currently utilized Home Health * Please name any agencies selected above. [facility] * Additional services required to return to the preadmission environment? No * Can the patient safely return to the preadmission environment? Yes * Has this patient been hospitalized within the prior 30 days at any hospital? No Coverage Notice Reviewer: [email or web address] - Mikaela Egan Notice Issued Date-Time: 06/05/2018 15:15 Notice Type: Medicare Outpatient Observation Notice Notice Delivered To: Patient Relationship to Patient: Self Toll Service Observer Name: Delivery Method: HAND - Hand Delivered Araceli Days: Prior Verbal Notification: Recipient Understood Notice: Yes Recipient Signature: Yes Med Rec Note Co-signed by Attending: Coverage Notice Comment: Reviewer: [email or web address] Roel Kemp Notice Issued Date-Time: 06/09/2018 14:55 Notice Type: Patient Choice Letter Notice Delivered To: Patient Relationship to Patient: Toll Service Observer Name: Delivery Method: HAND - Hand Delivered Araceli Days: Prior Verbal Notification: Recipient Understood Notice: Yes Recipient Signature: Yes Med Rec Note Co-signed by Attending: Coverage Notice Comment: [facility] OR [facility]. Reviewer: [email or web address] Roel Kemp Notice Issued Date-Time: 06/09/2018 14:55 Notice Type: IM Discharge Notice Notice Delivered To: Patient Relationship to Patient: Toll Service Observer Name: Delivery Method: HAND - Hand Delivered Araceli Days: Prior Verbal Notification: Recipient Understood Notice: Yes Recipient Signature: Yes Med Rec Note Co-signed by Attending: Coverage Notice Comment: Last DP export: 06/09/18 4:28 pm Patient Name: PETEY REDDY Page 38945 at 1119 All edits/amendments must be made on the electronic document DICTATION DATE: 06/12/188 PIE FILLER: [email or web address] 06/12/18 1118 RPT#: [id number] DC DATE:06/10/18 STATUS: DIS IN [facility] [address] [place] [address] END OF REPORT
== END 2018-06-10 18:17 | disposition home health service (06) | DRG 248 ==
LOC: D.ER 20:31 → OBSVTIME 20:57 → D.M2 20:57
PROVIDERS: Family Medicine; Internal Medicine Gastroenterology; Internal Medicine Interventional Cardiology; ADMIT Internal Medicine
PROC: B2121ZZ Fluoroscopy of Single Coronary Artery Bypass Graft using Low Osmolar Contrast (ICD-10-PCS; 2018-06-05)
PROC: B2111ZZ Fluoroscopy of Multiple Coronary Arteries using Low Osmolar Contrast (ICD-10-PCS; 2018-06-05)
PROC: B2151ZZ Fluoroscopy of Left Heart using Low Osmolar Contrast (ICD-10-PCS; 2018-06-05)
PROC: 02703EZ Dilation of Coronary Artery, One Artery with Two Intraluminal Devices, Percutaneous Approach (ICD-10-PCS; principal; 2018-06-05 09:45)
PROC: 4A023N7 Measurement of Cardiac Sampling and Pressure, Left Heart, Percutaneous Approach (ICD-10-PCS; 2018-06-05 09:45)
PROC: 0DB68ZX Excision of Stomach, Via Natural or Artificial Opening Endoscopic, Diagnostic (ICD-10-PCS; 2018-06-07)
PROC: 0D758ZZ Dilation of Esophagus, Via Natural or Artificial Opening Endoscopic (ICD-10-PCS; 2018-06-07)
DX: I21.4 Non-ST elevation (NSTEMI) myocardial infarction (principal); N18.6 End stage renal disease; I12.0 Hypertensive chronic kidney disease with stage 5 chronic kidney disease or end stage renal disease; I25.119 Atherosclerotic heart disease of native coronary artery with unspecified angina pectoris; K22.2 Esophageal obstruction; K44.9 Diaphragmatic hernia without obstruction or gangrene

== ENCOUNTER 2018-06-23 16:27 | Inpatient (IN) | payer MEDICARE ==
[~2018-06-23] VITALS: Ht 177.8 cm; Wt 68.6 kg
[2018-06-23] VITALS (19 sets, daily range): BP systolic 112–176; BP diastolic 50–98; BMI 21.7
--- NOTE | ~2018-06-23 | HEMODYNAMI ---
PATIENT:PETEY REDDY MEDICAL RECORD: [id number] : 46 LOCATION:[address] [address] ADMISSION DATE: 06/23/18 Generatedon:06/24/201813:08 Patient name: PETEY REDDY Patient #: [id number] SSN: : 1950 Date of study: 06/24/2018 Page: Of Hemodynamic Procedure Report Patient Data Patient Demographics Procedure consent was obtained First Name: PETEY Gender: Male Last Name: BARRY : 1950 Patient #: [id number] Age: 68 year(s) Race: Unknown Additional ID: [id number] Contact details [address]: [address] [place] [address] State: [place] City: [place] Zip code: [address] Past Medical History Allergies: No known allergies Admission Admission Data Admission Date: 06/23/2018 Admission Time: 17:27 Admit Source: Emergency department Room #: [facility]05 Procedure Procedure Types Cath Procedure Diagnostic Procedure LHC LHC w/Coronaries w/Grafts Sedation Charges Moderate Sedation up to 15 minutes PCI Procedure AMI/SVG/BRAKER PASSENGER TRAIN PTCA or Stent SVG-BMS/WINSTON Initial Procedure Description Procedure Date Procedure Date: 06/24/2018 Procedure Start Time: 12:42 Procedure End Time: 13:07 Procedure Staff Name Function Alverto Davis MD Performing Physician Matthew Cunningham RT Monitor Hayley Neal RT Scrub Tavo Hartman RN Nurse Procedure Data Cath Procedure Fluoroscopy Diagnostic fluoroscopy Total fluoroscopy Time: 9 time: 9 min min Diagnostic fluoroscopy Total fluoroscopy dose: dose: 306.63 mGy 306.63 mGy Contrast Material Contrast Material Type Amount (ml) Isovue 300 104 Entry Location Entry Primary Successful Side Size Upsize Upsize Entry Closure Succes sful Closure Location (Fr) 1 (Fr) 2 (Fr) Remarks Device Remarks Femoral Left 6 Fr Exoseal artery Short Estimated blood loss: 10 ml Diagnostic catheters Device Type Used For End Catheter Placement MULTIPACK Pigtail 5 Fr Procedure catheter MULTIPACK JL 4.0 5Fr Procedure catheter DIAGNOSTIC JL 6 5Fr Procedure catheter ([id number]) DIAGNOSTIC JL 5 5Fr Procedure catheter ([id number]) DIAGNOSTIC IM 5Fr Procedure catheter ([id number]) Procedure Complications No complications Procedure Medications Medication Administration Route Dosage 0.9% NaCl I.V. 10 ml/hr Oxygen etCO2 Nasal cannula 2 l/min Lidocaine 2% 20 Heparin Flush Bag added to field 2 bags (1000units/500ml NS) Heparin Drip 800 units/hr (50814ksltf/250 D5W) Nitro (50mg/250 D5W) 33 mcg/min Fentanyl I.V. 50 mcg Nitro (50mg/250 D5W) 33 mcg/min Fentanyl I.V. 50 mcg Hemodynamics Rest Heart Rate: 58 (bpm) Snapshots Pre Cath Intra NCS Post Cath Vital Signs Time Heart Resp SPO2 etCO2 NIBP Rhythm Pain Sedation Rate (ipm) (%) (mmHg) (mmHg) Status Level (bpm) 12:29:36 63 20 100 0 146/66(99) NSR 0 (11) 10(A) , No pain 12:34:01 58 12 100 0 142/58(81) NSR 0 (11) 10(A) , No pain 12:38:17 58 12 100 0 116/51(70) NSR 0 (11) 10(A) , No pain 12:42:35 58 11 100 0 112/43(76) NSR 0 (11) 10(A) , No pain 12:46:53 59 11 100 0 112/32(71) NSR 0 (11) 10(A) , No pain 12:51:07 59 11 100 0 127/49(78) NSR 0 (11) 10(A) , No pain 12:56:20 61 11 100 0 122/59(80) NSR 0 (11) 10(A) , No pain 13:00:34 61 13 100 0 123/70(80) NSR 0 (11) 10(A) , No pain 13:04:48 60 12 100 0 139/63(81) NSR 0 (11) 10(A) , No pain Medications Time Medication Route Dose Verified Delivered Reason Notes Effectiveness by by 12:34:11 0.9% NaCl I.V. 10 ml/hr Tavo Vo Per physic efren Hartman RN RN 12:34:26 Oxygen etCO2 Nasal 2 l/min Tavo Tavo for low 02 sats cannula Minnie Hartman RN RN 12:34:37 Lidocaine 2% 20ml Tavo Tavo for local vial Lorhector Hartman anesthetic RN RN 12:34:48 Heparin Flush added to field 2 bags Tavo Tavo used for Bag Lorigan Lorhector procedure (1000units/500ml RN RN NS) 12:35:30 Heparin Drip I.V. drip 800 Tavo Tavo for (23447kmsda/250 infusing and units/hr Lorigan Lorigan anticoagulation D5W) turned off RN RN 12:35:56 Nitro (50mg/250 I.V. drip 33 Tavo Tavo for D5W) infusing mcg/min Lorigan Lorhector vasodilation RN RN 12:39:04 Fentanyl I.V. 50 mcg Tvao Tavo for sedati on Lorhector Hartman RN RN 12:43:10 Nitro (50mg/250 I.V. drip 33 Tavo Tavo for D5W) infusing(turned mcg/min Lorigan Lorigan vasodilation off) RN RN 13:00:52 Fentanyl I.V. 50 mcg Tavo Tavo for sedati on Minnie Hartman RN desk interviewer Log Time Note 12:14:33 Informed consent obtained and on chart 12:14:38 Admit Source: Emergency department 12:14:54 Diagnostic Cath status Elective 12:14:56 Tavo Hartman RN sent for patient. Start room use. 12:14:56 Time tracking: Regular hours (M-F 7:00 - 5:00) 12:14:59 Plan of Care:Hemodynamics will remain stable., Cardiac rhythm will remain stable., Comfort level will be maintained., Respiratory function will remain adequate., Patient/ family verbilizes understanding of procedure., Procedure tolerated without complication., Recovers from procedure without complications.. 12:22:29 Patient received from CVICU to CCL 1 Alert and oriented. Tansferred to table in Supine position. 12:22:30 Warm blankets applied, and cherise hugger turned on for patient comfort. 12:22:31 Correct patient and procedure confirmed by team. 12:22:32 ECG and BP/O2 sat monitors applied to patient. 12:22:33 Full Disclosure recording started 12:28:32 Vital chart was started 12:28:39 Rhythm: sinus bradycardia 12:34:08 H&P Date Dictated: 06/24/2018 Within 30 days and on chart.. 12:34:09 Pre-procedure instructions explained to patient. 12:34:10 Pre-op teaching completed and patient verbalized understanding. 12:34:11 0.9% NaCl 10 ml/hr I.V. was administered by Tavo Hartman RN; Per physician; 12:34:12 Family unavailable. 12:34:13 Patient NPO since Midnight. 12:34:18 Patient allergic to No known allergies 12:34:20 Is the patient allergic to Iodine/contrast media? No. 12:34:21 Is patient on blood thinner?Yes 12:34:26 Oxygen 2 l/min etCO2 Nasal cannula was administered by Tavo Hartman RN; for low 02 sats; 12:34:27 ACC The patient was administered the following blood thiners within the last 24 hours: ACCPlavix, ACCHeparin 12:34:29 Patient diabetic? No. 12:34:31 Previous problem with sedation/anesthesia? No ? 12:34:32 Snore? No 12:34:33 Sleep apnea? No 12:34:34 Deviated septum? No 12:34:34 Opens mouth fully? Yes 12:34:35 Sticks out tongue? Yes 12:34:36 Airway obstruction? No ? 12:34:37 Lidocaine 2% 20ml vial was administered by Tavo Hartman RN; for local anesthetic; 12:34:41 Dentures? Yes out 12:34:43 Pre procedure: right dorsailis pedis pulse 2+ Normal; easily identifiable; not easily obliterated 12:34:45 Pre procedure: left dorsailis pedis pulse 2+ Normal; easily identifiable; not easily obliterated 12:34:47 Patient pain scale 0/10 ?. 12:34:48 Heparin Flush Bag (1000units/500ml NS) 2 bags added to field was administered by Tavo Hartman RN; used for procedure; 12:34:53 IV patent on arrival in right EJ with 0.9% NaCl at [facility]. 12:35:04 Lab results completed and on chart. 12:35:06 Left groin area was prepped with chlora-prep and draped in sterile fashion 12:35:07 Alarms reviewed by RPasha N. 12:35:07 Sharps counted by scrub and verified by R.N. 12:35:09 Use device set Femoral Dx 12:35:10 ACIST Syringe (73539) opened to sterile field. 12:35:11 Bag Decanter (2002S) opened to sterile field. 12:35:11 Medline Cath Pack ([id number]) opened to sterile field. 12:35:12 ACIST Hand Control (16023) opened to sterile field. 12:35:12 ACIST Manifold (85004) opened to sterile field. 12:35:13 Tegaderm 4 x 4 (1626W) opened to sterile field. 12:35:14 DIAGNOSTIC WIRE .035 260cm J wire (296886) opened to sterile field. 12:35:15 DIAGNOSTIC Multipack 5Fr catheter set (QR3669) opened to sterile field. 12:35:30 Heparin Drip (82443ifcly/250 D5W) 800 units/hr I.V. drip infusing and turned off was administered by Tavo Hartman RN; for anticoagulation; 12:35:56 Nitro (50mg/250 D5W) 33 mcg/min I.V. drip infusing was administered by Tavo Hartman RN; for vasodilation; 12:37:07 Physician arrived 12:37:07 --------ALL STOP TIME OUT------ 12:37:08 Final Timeout: patient, procedure, and site verified with staff and physician. All members of the team are in agreement. 12:37:10 Right groin site verified by team. 12:37:48 Fire Safety Assessment: A--An alcohol-based skin anteseptic being used preoperatively., C--Open oxygen or nitrous oxide is being used., D--An ESU, laser, or fiber-optic light is being used. 12:38:40 Physical assessment completed. ASA score P 3 - A patient with severe systemic disease as per Alverto Davis MD. 12:38:43 Sedation plan: IV Moderate Sedation Medication:Fentanyl 12:39:04 Fentanyl 50 mcg I.V. was administered by Tavo Hartman RN; for sedation; 12:41:18 Procedure started. 12:41:25 Zero performed for pressure channel P1 12:41:29 Zero performed for pressure channel P1 12:41:32 Baseline sample Acquired. 12:41:37 Zero performed for pressure channel P1 12:42:00 Local anesthetic to left femerol artery with Lidocaine 2% by Alverto Davis MD.INITIAL ACCESS ONLY 12:42:14 A 6 Fr Short sheath was inserted into the Left Femoral artery 12:42:20 SHEATH 6FR [place] (RKD705) opened to sterile field. 12:42:58 A MULTIPACK Pigtail 5 Fr catheter was advanced over the wire and used for Procedure. 12:43:10 Nitro (50mg/250 D5W) 33 mcg/min I.V. drip infusing(turned off) was administered by Tavo Hartman RN; for vasodilation; 12:45:00 Catheter removed. 12:45:06 A MULTIPACK JL 4.0 5Fr catheter was advanced over the wire and used for Procedure. 12:45:57 Catheter exchanged over wire. 12:47:26 A DIAGNOSTIC JL 6 5Fr catheter ([id number]) was advanced over the wire and used for Procedure. 12:48:38 Catheter exchanged over wire. 12:48:43 A DIAGNOSTIC JL 5 5Fr catheter ([id number]) was advanced over the wire and used for Procedure. 12:49:03 LCA angiography performed. 12:49:04 Catheter exchanged over wire. 12:49:20 A DIAGNOSTIC IM 5Fr catheter (316549M) was advanced over the wire and used for Procedure. 12:49:45 JAMISON to LAD angiography performed. 12:50:39 SVG to Circ angiography performed. 12:50:49 Catheter removed. 12:51:03 GUIDE 6FR DONOVAN 90 catheter ([id number]) opened to sterile field. 12:51:13 CHOICE PT Extra Support 182cm wire ([id number]) opened to sterile field. 12:51:14 INFLATOR Merit BasixCompak (US3347) opened to sterile field. 12:51:36 6 Fr DONOVAN 90cm guide catheter was inserted over the wire 12:51:42 CHOICE PT ES wire advanced. 12:55:08 Wire advanced across lesion. 12:57:17 Inflate balloon Inflation number: 1 A EUPHORA 2.0 x 15 Balloon ([id number]) was prepped and advanced across the JAMISON -> Dist LAD, then inflated to 13 KARLY for 0:10 (min:sec). 12:57:35 Balloon removed over the wire. 12:59:04 Place stent Inflation Number: 2 A SUMIT RX 2.0 x 30 stent ([id number]) was prepped and advanced across the JAMISON -> Dist LAD. The stent was deployed at 17 KARLY for 0:10 (min:sec). 12:59:06 Stent catheter was removed intact over wire. 12:59:06 Wire removed. 12:59:07 Guide catheter removed. 12:59:18 EXOSEAL 6Fr (EX600) opened to sterile field. 12:59:28 Sheath removed intact; hemostasis achieved with Exoseal to the Left Femoral artery. 12:59:30 Procedure ended.(Physican Out) 13:00:52 Fentanyl 50 mcg I.V. was administered by Tavo Hartman RN; for sedation; 13:05:34 Fluoroscopy time 09.00 minutes. 13:05:50 Flurop Dose total: 306.63 13:05:50 Fluoroscopy dose: 306.63 mGy 13:05:54 Contrast amount:Isovue 300 104ml. 13:05:55 Sharps counted by scrub and verified by R.N. 13:05:59 Post-op/insertion site Left Femoral artery dressed using a 4 x 4 and Tegaderm. 13:06:05 Post left femerol artery:stable, soft, clean and dry 13:06:06 Post Procedure Pulses reassessed and unchanged 13:06:08 Post-procedure physical assessment completed. ASA score P 3 - A patient with severe systemic disease as per Alverto Davis MD. 13:06:10 Post procedure rhythm: unchanged. 13:06:13 Estimated blood loss: 10 ml 13:06:14 Post procedure instruction explained to patient.Patient verbalizes understanding. 13:06:14 Patient needs reinforcement of post procedure teaching. 13:06:27 Procedure type changed to Cath procedure, Diagnostic procedure, LHC, LHC w/Coronaries w/Grafts, Sedation Charges, Moderate Sedation up to 15 minutes, PCI procedure, AMI/SVG/BRAKER PASSENGER TRAIN PTCA or Stent, SVG-BMS/WINSTON Initial 13:07:34 Procedure and supply charges have been captured, reviewed, submitted and are correct. 13:07:36 Procedure Complication : No complications 13:07:38 Vital chart was stopped 13:07:38 See physician's report for complete and final results. 13:07:39 Report given to CVICU. 13:07:41 Patient transfered to CVICU with Stretcher. 13:07:44 Procedure ended. 13:07:44 Full Disclosure recording stopped 13:07:55 End room use (Document Last) Intervention Summary Intervention Notes Time ActionType Lesion and Equipment Used Action# Pressure Duration Attributes 12:57:17 Inflate JAMISON -> EUPHORA 2.0 x 1 13 00:10 balloon Dist LAD 15 Balloon ([id number]) 12:59:04 Place stent JAMISON -> SUMIT RX 2.0 x 2 17 00:10 Dist LAD 30 stent ([id number]) Device Usage Item Name Manufacture Quantity Catalog Number Hospital Part Current M inimal Lot# / Charge Number Stock Stock Serial# Code ACIST Syringe Acist 1 79392 536264 124991 949360 2 0 (76061) Medical Systems Inc Bag Decanter Microtek 1 2001S 058463 63575 607887 5 (2001S) Medical Inc. Medline Cath Medline 1 [id number] 476757 24547 874676 5 Pack ([id number]) ACIST Hand Acist 1 88904 436611 437125 995405 5 Control Medical (48628) Systems Inc ACIST Manifold Acist 1 53881 739714 751329 464312 5 (02994) Medical Systems Inc Tegaderm 4 x 4 3M 1 1626W 045633 845315 359283 5 (1626W) DIAGNOSTIC St Kwame 1 197555 639699 258325 259054 3 0 WIRE .035 260cm J wire (910217) DIAGNOSTIC Cardinal 1 NE2975 878630 89721 758699 3 0 Multipack 5Fr Health catheter set (GC5985) SHEATH 6FR Terumo 1 ILH662 687918 173091 625910 4 0 [place] (RSN841) MULTIPACK Cardinal 1 392172 5 Pigtail 5 Fr Health catheter MULTIPACK JL Cardinal 1 380072 5 4.0 5Fr Health catheter DIAGNOSTIC JL Cardinal 1 [id number] 587117 535509 517369 5 6 5Fr catheter Health (939482Q) DIAGNOSTIC JL Cardinal 1 [id number] 948680 195697 791023 5 5 5Fr catheter Health (525281V) DIAGNOSTIC IM Cardinal 1 [id number] 256329 031552 474051 5 5Fr catheter Health (949904M) GUIDE 6FR DONOVAN Medtronic 1 [id number] 577414 70214 327250 1 90 catheter ([id number]) CHOICE PT [place] 1 [id number] 623442 507558 288718 5 Extra Support Scientific 182cm wire ([id number]) INFLATOR Merit Merit 1 RM3714 718686 834671 463042 1 5 Satellier Medical (LA1005) EUPHORA 2.0 x Medtronic 1 [id number] 516795 060421 672162 5 [id number] 15 Balloon ([id number]) SUMIT RX 2.0 x Medtronic 1 [id number] 848307 0641891 554624 5 [id number] 30 stent ([id number]) EXOSEAL 6Fr Cardinal 1 EX600 884917 702409 699796 1 0 (EX600) Health Signature Audit [place] Stage Time Signature Unsigned Intra-Procedure 06/24/2018 Matthew Cunningham 1:08:33 PM RT(R) Signatures Monitor : Matthew Cunningham RT Signature : Date : Time : [id number] [place] [address]
[~2018-06-23 16:27] MED LIST: ASPIRIN81 MG PO; CARAFATE1 G PO; CYCLOBENZAPRINE5 MG PO; FOLIC ACID1 MG PO; HYDRALAZINE HCL25 MG PO; LIPITOR40 MG PO; LOPRESSOR25 MG PO; MEGACE 20 MG TA20 MG PO; NITROQUICK0.4 MG SL; PHENERGAN25 M1 PO; PLAVIX75 MG PO; PROTONIX40 MG PO; RENVELA800 MG PO; ZYLOPRIM100 MG PO
--- NOTE | 2018-06-23 16:30 | NUR ---
PT ARRIVES VIA EMS TO ER A TRANSFER FROM [facility] WITH NSTEMI AND AR. PT HAS HEPARIN GTT GOING , NITRO GTT GOING AND NS AT TKO. ALL CONT. ON ARRIVAL. PT HAS A IV IN HIS RIGHT JUGULAR. NO C/O CHEST PAIN ON ARRIVAL. STATES HE IS HUNGRY "I HAVE NOT EATEN ALL DAY. "
[2018-06-23 17:16] LABS: BASOPHILS 0.1 % (0-2); EOSINOPHILS 0.7 % (0-7); HEMATOCRIT 35.2 % (42.0-54.0); HEMOGLOBIN 10.7 g/dL (13.5-17.5); IMMATURE GRANULOCYTES 0.1 % (0-5); LYMPHOCYTES 19.5 % (15-50); MCH 29.1 pg (26.0-34.0); MCHC 30.4 g/dL (31.0-37.0); MCV 95.7 fL (80.0-100.0); MEAN PLATELET VOLUME 11.8 fL (7.4-10.4); MONOCYTES 7.5 % (2-11); NEUTROPHILS 72.1 % (40-80); PLATELET COUNT 135 10x3/uL (130-400); RBC 3.68 10x6/uL (4.20-6.10)
[2018-06-23 18:03] LABS: ALBUMIN 3.3 g/dL (3.4-5.0); ALKALINE PHOSPHATASE 98 U/L (46-116); ALT (SGPT) 19 U/L (10-68); BILIRUBIN - TOTAL 0.54 mg/dL (0.2-1.3); CALC OSMOLALITY 288 mosm/kg (275-300); CALCIUM 8.4 mg/dL (8.5-10.1); CARBON DIOXIDE 23.4 mmol/L (21.0-32.0); CHLORIDE - SERUM 102 mmol/L (98-107); CKMB 2.8 U/L (0.0-3.6); CREATINE KINASE 131 UL (21-232); CREATININE - SERUM 9.4 mg/dL (0.6-1.3); GLUCOSE 78 mg/dL (74-106); MAGNESIUM - SERUM 1.9 mg/dL (1.8-2.4); POTASSIUM - SERUM 3.6 mmol/L (3.5-5.1); PROTEIN - SERUM 6.8 g/dL (6.4-8.2); SODIUM 142 mmol/L (136-145); UREA NITROGEN 32 mg/dL (7-18); eGFR NON AFRICAN AMERICAN 6 mL/min (90-120)
[2018-06-23 18:11] LABS: TROPONIN-I 3.103 ng/mL (0.000-0.060)
--- NOTE | 2018-06-23 19:31 | MORECARE ---
CASE MANAGEMENT DISCHARGE SUMMARY PATIENT: PETEY REDDY UNIT: [id number] ADM DATE: 06/23/18 AGE: 68 : 48 SEX: M ROOM/BED: [facility] AUTHOR: YANNI ADAME PHYSICIAN: REFERRING PHYSICIAN: TY PINEDA MD DATE OF SERVICE: 06/23/18 Discharge Plan Patient Name: PETEY REDDY Facility: [facility]:[place] : 1950 Planned Disposition: Anticipated Discharge Date: Discharge Date: Expected LOS: Initial Reviewer: [email or web address] Initial Review Date: 06/23/2018 Generated: 06/23/18 8:31 pm Patient Name: PETEY REDDY Page [phone] at 1931 All edits/amendments must be made on the electronic document DICTATION DATE: 06/23/181929 HOST/HOSTESS RESTAURANT: [email or web address] 06/23/181929 RPT#: [id number] DC DATE: STATUS: ADM IN [facility] [address] [place] [address] END OF REPORT
--- NOTE | 2018-06-23 20:06 | NUR ---
ARRIVED TO UNIT 1930, ADMISSIONS ASSESSMENT AND HISTORY OBTAINED. PLEASE SEE FLOW SHEETS FOR FULL DETAILS. ATTEMPT TO RESITE IV X3 UNSUCCESSFUL. RIGHT EXTERNAL IJ IN PLACE, THREE WAY ATTACHED FOR GTTS, DRESSING CDI, PATENT ATT. WILL CONTINUE TO TITRATE GTTS TO EFFECT AND MONITOR PATIENT.
--- NOTE | 2018-06-23 20:22 | NUR ---
DR ARCEO CALLED BACK, ORDERS RECIEVED.
[2018-06-23 21:57] LABS: INR 1.36 (0.85-1.17); PROTIME 16.2 SECONDS (11.6-15.0)
[2018-06-23 21:59] LABS: APTT 129.6 SECONDS (22.8-39.4)
[2018-06-23 22:34] LABS: CKMB 4.1 U/L (0.0-3.6); CREATINE KINASE 110 UL (21-232)
--- NOTE | 2018-06-23 22:59 | NUR ---
REASSESSMENT COMPLETE, PLEASE SEE FLOW SHEETS FOR DETAILS. NO ACUTE CHANGES FROM PREVIOUS ASSESSMENT TO NOTE. EJ SITE INSPECTED, CDI. BED LOW AND LOCKED, TITRATING NITRO TO EFFECT, HEMODYNAMICALLY STABLE. WILL CPOC.
[2018-06-24] VITALS (62 sets, daily range): BP systolic 110–160; BP diastolic 47–94; Ht 177.8 cm; Wt 68.6 kg
--- NOTE | 2018-06-24 | NUR ---
MADE NPO FOR POSSIBLE PROCEDURE TODAY.
--- NOTE | 2018-06-24 01:00 | NUR ---
HEMODYNAMICALLY STABLE, MONITORING CLOSELY, WILL CONTINUE PLAN OF CARE.
--- NOTE | 2018-06-24 03:04 | NUR ---
REASSESSMENT COMPLETE, PLEASE SEE FLOW SHEETS FOR DETAILS. NO ACUTE CHANGES TO NOTE. HEMODYNAMICALLY STABLE. BED LOW AND LOCKED, CALL LIGHT IN REACH. WILL CONTINUE PLAN OF CARE.
--- NOTE | 2018-06-24 05:00 | NUR ---
CHLORHEXADINE BATH PROVIDED, TOLERATED WELL. HEMODYNAMICALLY STABLE, BED LOW AND LOCKED, CALL LIGHT IN REACH. WILL CPOC.
[2018-06-24 05:51] LABS: BASOPHILS 0.1 % (0-2); EOSINOPHILS 1.7 % (0-7); HEMATOCRIT 29.3 % (42.0-54.0); HEMOGLOBIN 9.3 g/dL (13.5-17.5); IMMATURE GRANULOCYTES 0.3 % (0-5); LYMPHOCYTES 15.8 % (15-50); MCH 29.8 pg (26.0-34.0); MCHC 31.7 g/dL (31.0-37.0); MCV 93.9 fL (80.0-100.0); MEAN PLATELET VOLUME 11.6 fL (7.4-10.4); MONOCYTES 14.4 % (2-11); NEUTROPHILS 67.7 % (40-80); PLATELET COUNT 128 10x3/uL (130-400); RBC 3.12 10x6/uL (4.20-6.10); RDW 16.8 % (11.5-14.5); WBC 7.2 10x3/uL (4.8-10.8)
[2018-06-24 07:01] LABS: ALBUMIN 2.6 g/dL (3.4-5.0); ALKALINE PHOSPHATASE 78 U/L (46-116); BILIRUBIN - TOTAL 0.43 mg/dL (0.2-1.3); CALC OSMOLALITY 290 mosm/kg (275-300); CALCIUM 7.9 mg/dL (8.5-10.1); CARBON DIOXIDE 26.9 mmol/L (21.0-32.0); CHLORIDE - SERUM 102 mmol/L (98-107); CKMB 1.2 U/L (0.0-3.6); CREATINE KINASE 81 UL (21-232); CREATININE - SERUM 8.4 mg/dL (0.6-1.3); GLUCOSE 91 mg/dL (74-106); POTASSIUM - SERUM 4.1 mmol/L (3.5-5.1); PROTEIN - SERUM 5.5 g/dL (6.4-8.2); SODIUM 141 mmol/L (136-145); UREA NITROGEN 40 mg/dL (7-18); eGFR NON AFRICAN AMERICAN 7 mL/min (90-120)
[2018-06-24 07:06] LABS: ALT (SGPT) 11 U/L (10-68)
[2018-06-24 07:07] LABS: TROPONIN-I 2.823 ng/mL (0.000-0.060)
--- NOTE | 2018-06-24 12:39 | NUR ---
1220: TO QLIKVIEW DEVELOPER VIA BED.
--- NOTE | 2018-06-24 13:20 | NUR ---
REC'D FROM MAINTENANCE SUPERVISOR MECHANICAL VIA BED. CONNECTED TO MONITOR. L GROIN SOFT. DENIES ANY PAIN. HEPARIN AND NTG GTTS OFF. NS VIA R EXTERNAL JUGULAR AT 20CC/HR.
--- NOTE | 2018-06-24 19:00 | NUR ---
REPORT RECEIVED CARE ASSUMED. PT SITTING UP IN BED PULLING OFF LINES AND MONITORS. PT BECOME AGGRESSIVE TO STAFF WHILE ATTEMPTING TO REORIENTATE. RESTRAINTS APPLIED BILAT WRIST. PT DISORIENTED. ASSESSMENT DONE SEE FLOW SHEET. VSS. WILL CONTINUE TO MONITOR.
--- NOTE | 2018-06-24 19:03 | NUR ---
1849: UNPLUGGING UPHOLSTERY COVERS INSPECTOR. CONFUSED. 1899: GARRICK DIALLO APN NOTIFIED. NEW ORDERS REC'D. PLACED IN TWYLA WRIST RESTRAINTS.
--- NOTE | 2018-06-24 23:00 | NUR ---
REASSESSMENT DONE SEE FLOW SHEET. VSS. DIALYSIS NURSE AT BEDSIDE.
[2018-06-25] VITALS (12 sets, daily range): BP systolic 84–142; BP diastolic 18–91
--- NOTE | 2018-06-25 05:00 | NUR ---
COMPLETE BED BATH GIVEN. RESTRAINTS REMOVED. DECREASE IN AGGRESSION NOTED. PT EXPRESS GRATITUDE FOR BATH. VSS. NO SIGNS OF ACUTE DISTRESS NOTED WILL CONTINUE TO MONITOR.
[2018-06-25 07:04] LABS: BASOPHILS 0.2 % (0-2); EOSINOPHILS 1.4 % (0-7); HEMATOCRIT 32.8 % (42.0-54.0); HEMOGLOBIN 10.2 g/dL (13.5-17.5); IMMATURE GRANULOCYTES 0.2 % (0-5); LYMPHOCYTES 12.5 % (15-50); MCH 28.9 pg (26.0-34.0); MCHC 31.1 g/dL (31.0-37.0); MCV 92.9 fL (80.0-100.0); MEAN PLATELET VOLUME 12.7 fL (7.4-10.4); NEUTROPHILS 74.7 % (40-80); PLATELET COUNT 138 10x3/uL (130-400); RBC 3.53 10x6/uL (4.20-6.10); RDW 16.7 % (11.5-14.5)
[2018-06-25 07:05] LABS: WBC 5.1 10x3/uL (4.8-10.8)
[2018-06-25 07:40] LABS: ALBUMIN 2.8 g/dL (3.4-5.0); BILIRUBIN - TOTAL 0.56 mg/dL (0.2-1.3); CALCIUM 8.1 mg/dL (8.5-10.1); CARBON DIOXIDE 28.7 mmol/L (21.0-32.0); CREATININE - SERUM 7.6 mg/dL (0.6-1.3); PROTEIN - SERUM 6.6 g/dL (6.4-8.2)
[2018-06-25 07:50] LABS: ANION GAP 14.5 mmol/L (8-16); POTASSIUM - SERUM 3.2 mmol/L (3.5-5.1)
--- NOTE | 2018-06-25 08:43 | NUR ---
ROSE GRADING SUPERVISOR FOR BRANDY KNOWLES, WAS ABLE TO GET PATIENT TO SWALLOW MEDICATION.
[2018-06-25] MEDS ORDERED: METOPROLOL TART50 MG PO (08:45)
--- NOTE | 2018-06-25 13:28 | NUR ---
CALLED PATIENTS SISTER KELECHI AGAIN. NO ANSWER. DAUGHTER DID CALL AND SPOKE TO LORA ANGEL WHO TOLD HER PATIENT IS DISCHARGED AND JUST WAITING TO BE PICKED UP.
--- NOTE | 2018-06-25 14:32 | NUR ---
PATIENTS DAUGHTER ARRIVED TO [employer] FOR DISCHARGE. DC'D IV TO RIGHT EJ AND ASSISTED PUTTING ON CLOTHES. GAVE DISCHARGE PAPERWORK AND INSTRUCTIONS TO DAUGHTER. TAKEN TO VEHICLE VIA WHEEL CHAIR.
--- NOTE | 2018-06-26 10:04 | MORECARE ---
CASE MANAGEMENT DISCHARGE SUMMARY PATIENT: PETEY REDDY UNIT: [id number] ADM DATE: 06/23/18 AGE: 68 : [birth year] SEX: M ROOM/BED: [facility] AUTHOR: YANNI ADAME PHYSICIAN: REFERRING PHYSICIAN: TY PINEDA MD DATE OF SERVICE: 06/26/18 Discharge Plan Patient Name: PETEY REDDY [facility] : 1950 Planned Disposition: Anticipated Discharge Date: Discharge Date: 06/25/2018 Expected LOS: Initial Reviewer: [email or web address] Initial Review Date: 06/23/2018 Generated: 06/26/18 11:04 am Last DP export: 06/23/18 6:31 p Patient Name: PETEY REDDY Page [id number] at 1004 All edits/amendments must be made on the electronic document DICTATION DATE: 06/26/18 1003 GROUNDSMAN: DM 06/26/18 1003 RPT#: [id number] DC DATE:06/25/18 STATUS: DIS IN [facility] [address] [place] [address] END OF REPORT
--- NOTE | 2018-06-27 11:18 | EC ---
PATIENT:PETEY REDDY DATE OF SERVICE: 06/23/18 SEX: M MEDICAL RECORD: [id number] DATE OF : [birth year] LOCATION:[place] [address] AGE OF PATIENT: 68 ADMISSION DATE: 06/23/18 REFERRING PHYSICIAN: INTERPRETING PHYSICIAN: HEIDI DAVIS MD ECHOCARDIOGRAM REPORT ECHO CHARGES 4 ECHO COMPLETE Date: 06/24/18 CLINICAL DIAGNOSIS: ASSESS EF AND VALVES, CAD,STENTS ECHOCARDIOGRAPHIC MEASUREMENTS (adult normal given) AC root (d.<3.7cm) 4.0 cm LV Septum d (<1.2 cm> 1.3 cm Valve Excursion 0.9 cm LV Septum (systole) 1.4 cm Left Atria (s.<4.0cm> 4.5 cm LVPW d(<1.2cm) 1.3 cm RV (d.<2.3cm) 4.2 cm LVPW (sytole) 1.5 cm LV diastole(<5.6CM) 6.0 cm MV E-F(>70mm/sec) cm LV systole 4.9 cm LVOT Diameter 1.5 cm MV exc.(>10mm) 1.3 cm Est.ejection fraction (50-75%) % DOPPLER: LVIT cm/sec A 96.0 cm/sec E 112 cm/sec LA cm/sec RVSP 36 mmHg LVOT 139 cm/sec AOP1/2T m/s Asc. Ao 312 cm/sec RVOT cm/sec RA cm/sec PA 193 cm/sec AV Gradient Peak 39.0 mmHg AV Mean 24.0 mmHg AV Area 0.8 cm MV Gradient Peak 8.32 mmHg MV Mean 2.13 mmHg MV Area cm COMMENTS: Family Educator: 2 ANATOLIY GRACIA Storm Window Installer: 1 Dr. Davis TAPE# PACS Pericardial Effusion N DATE OF SERVICE: FINDINGS: 1. Left ventricular chamber size is within normal limits. Left ventricular systolic function is normal. Overall ejection fraction estimated at 55%. 2. Left atrium is enlarged at 4.5 cm. Right atrium and right ventricle chamber sizes are as well mildly dilated. 3. Valvular structures: Aortic valve demonstrates htdekovy-zu-degdfv calcific aortic stenosis, valve area calculates to 0.7 cm-squared with gradient of 39 mm across the valve. The remaining valvular structures have normal structure and ECHOCARDIOGRAM REPORT [id number] PETEY REDDY motion. 4. Doppler interrogation elsewise reveals mild mitral regurgitation, mild tricuspid regurgitation, no other valvular insufficiency or stenosis. 5. No evidence of pericardial effusion or left ventricular thrombus. TRANSINT:[id number] Voice Confirmation ID: [id number] DOCUMENT ID: [id number] HEIDI DAVIS MD at 1118 CC: [id number] DICTATION DATE: 06/24/18 1536 BOOSTER PLANT OPERATOR: 06/24/18 2313 DIS IN 06/25/18 [place] [address] [place] [address]
--- NOTE | 2018-06-27 11:18 | OP ---
PATIENT NAME: PETEY REDDY MEDICAL RECORD: [id number] :46 LOCATION:D.I D.CV05 ADMISSION DATE:06/23/18 SURGEON: HEIDI ARCEO MD DATE OF OPERATION: 06/24/2018 DATE OF SERVICE: 06/24/2018 PROCEDURES: 1. PTCA stent LAD through patent JAMISON graft. 2. Left heart catheterization. 3. Selective coronary angiography. 4. Vein graft angiography. 5. JAMISON angiography. INDICATION: Angina and coronary artery disease. PROCEDURE IN DETAIL: After informed consent was obtained and after a detailed description of risks, benefits as well as alternative therapies, the patient elected to proceed with angiogram and angioplasty. The left femoral area was prepped and draped in normal sterile fashion. Left femoral artery was cannulated via modified Seldinger technique with placement of 6-Polish sheath. All catheters exchanged through this sheath. FINDINGS: The left ventriculogram was not performed due to inability to cross the valve. SELECTIVE CORONARY ANGIOGRAPHY: 1. Left main is closed. 2. Left anterior descending is closed. 3. Left circumflex is closed. 4. Right coronary artery is closed. 5. JAMISON to the LAD is open. The LAD has 95% stenosis after the anastomosis of the JAMISON. 6. The vein graft to the circumflex is patent. The previously placed stents are widely patent. 7. Vein graft to the RCA is closed. PTCA STENT OF THE LAD THROUGH THE PATENT JAMISON GRAFT: The stent used was a 2.0 x 30 mm Ritesh. Result was 0% residual stenosis. OVERALL IMPRESSION: Successful percutaneous transluminal coronary angioplasty stent of the left anterior descending through the left internal mammary artery going from 95% initial stenosis to 0% residual. TRANSINT:[id number] Voice Confirmation ID: [id number] DOCUMENT ID: [id number] HEIDI ARCEO MD at 1118 CC: [id number] DICTATION DATE: 06/24/18 1304 ASL INTERPRETER: 06/24/18 1324 DIS IN 06/25/18 [facility] [address] [place] [address]
== END 2018-06-25 14:41 | disposition home or self-care (01) | DRG 246 ==
LOC: D.ER 16:27 → D.EDHOLD 17:27 → D.CVICU 18:30
PROVIDERS: Family Medicine; Internal Medicine Interventional Cardiology; ADMIT Internal Medicine
PROC: 027034Z Dilation of Coronary Artery, One Artery with Drug-eluting Intraluminal Device, Percutaneous Approach (ICD-10-PCS; principal; 2018-06-24 12:14)
PROC: B2081ZZ Plain Radiography of Left Internal Mammary Bypass Graft using Low Osmolar Contrast (ICD-10-PCS; 2018-06-24 12:14)
DX: I21.4 Non-ST elevation (NSTEMI) myocardial infarction (principal); N18.6 End stage renal disease; I12.0 Hypertensive chronic kidney disease with stage 5 chronic kidney disease or end stage renal disease; Z99.2 Dependence on renal dialysis; R07.9 Chest pain, unspecified

== ENCOUNTER 2018-09-24 22:31 | Inpatient (IN) | payer MEDICARE ==
[~2018-09-24] VITALS: Ht 177.8 cm; Wt 68.2 kg
--- NOTE | ~2018-09-24 | HEMODYNAMI ---
PATIENT:PETEY REDDY MEDICAL RECORD: [id number] : 46 [id number] ADMISSION DATE: 09/24/18 Generatedon:09/29/201810:55 Patient name: PETEY REDDY Patient #: [id number] SSN: : 1950 Date of study: 09/29/2018 Page: Of Hemodynamic Procedure Report Patient Data Patient Demographics Procedure consent was obtained First Name: PETEY Gender: Male Last Name: BARRY : 1950 Patient #: [id number] Age: 68 year(s) Race: Additional ID: [id number] Contact details Address: [address] [place] [address] State: [place] City: [place] Zip code: [address] Past Medical History Allergies: No known allergies Admission Admission Data Admission Date: 09/24/2018 Admission Time: 23:23 Admit Source: Emergency department Room #: D.2114 Lab Results Lab Result Date: 09/29/2018 Lab Result Time: 4:47 Biochemistry Name Units Result Min Max BUN mg/dl 60 --(----)-* 7 18 Creatinine mg/dl 9.6 --(----)-* 0.6 1.3 CBC Name Units Result Min Max Hematocrit % 34.1 *-(----)-- 42 54 Hemoglobin g/dl 11.4 *-(----)-- 13.5 17.5 Procedure Procedure Types Cath Procedure Peripheral Cath Diagnostic Procedure Gourmet Coffee Attendant Peripheral Procedures Qlexc-Trozmdw-Eps-Off Peripheral vascular Intervention Stent Stent-Fem/Popw/plasty Procedure Description Procedure Date Procedure Date: 09/29/2018 Procedure Start Time: 10:23 Procedure End Time: 10:53 Procedure Staff Name Function Alverto Davis MD Performing Physician Matthew Cunningham RT Monitor Rosemarie Posey RT Scrub Itzel Field RN Nurse Kali Del Castillo RN Infrastructure Administrator Procedure Data Cath Procedure Fluoroscopy Diagnostic fluoroscopy Total fluoroscopy Time: 5.4 time: 5.4 min min Diagnostic fluoroscopy Total fluoroscopy dose: 103 dose: 103 mGy mGy Contrast Material Contrast Material Type Amount (ml) Isovue 370 70 Entry Location Entry Primary Successful Side Size Upsize 1 Upsize Entry Closure Matos ccessful Closure Location (Fr) (Fr) 2 (Fr) Remarks Device Remarks Femoral Right 5 Fr Exoseal artery Femoral Left 6 Fr 6 Fr 6 Fr Exoseal artery Short Mid-Length Short Estimated blood loss: 10 ml Diagnostic catheters Device Type Used For End Catheter Placement DIAGNOSTIC UF 5Fr Procedure catheter ([id number]) DIAGNOSTIC UF 5Fr Procedure catheter ([id number]) Procedure Complications No complications Procedure Medications Medication Administration Route Dosage 0.9% NaCl I.V. Oxygen etCO2 Nasal cannula 2 l/min Lidocaine 2% added to field 20 Heparin Flush Bag added to field 2 bags (1000units/500ml NS) Versed I.V. 2 mg Fentanyl I.V. 50 mcg Fentanyl I.V. 50 mcg Heparin Bolus I.V. 4000 units Hemodynamics Rest HGB: 11.4 (g/dl) Heart Rate: 63 (bpm) Snapshots Pre Cath Intra NCS Post Cath Vital Signs Time Heart Resp SPO2 etCO2 NIBP (mmHg) Rhythm Pain Sedation Rate (ipm) (%) (mmHg) Status Level (bpm) 9:56:03 63 16 100 31.5 162/84(117) NSR 0 (11) 10(A) , No pain 10:00:29 65 19 100 21 144/78(119) NSR 0 (11) 10(A) , No pain 10:04:49 62 17 100 14.2 145/74(125) NSR 0 (11) 10(A) , No pain 10:09:05 62 13 100 11.9 151/83(101) NSR 0 (11) 10(A) , No pain 10:13:23 63 11 100 14.9 159/83(137) NSR 0 (11) 10(A) , No pain 10:17:43 62 12 100 21.7 166/91(107) NSR 0 (11) 10(A) , No pain 10:22:05 65 20 100 11.2 171/85(139) NSR 0 (11) 10(A) , No pain 10:26:24 64 10 100 7.4 144/81(115) NSR 0 (11) 10(A) , No pain 10:30:40 62 17 100 27.7 146/86(134) NSR 0 (11) 9(A) , No pain 10:34:58 60 13 100 21.1 158/80(129) NSR 0 (11) 9(A) , No pain 10:39:14 60 13 100 29.2 141/85(121) NSR 0 (11) 9(A) , No pain 10:43:28 60 10 100 33.7 157/85(132) NSR 0 (11) 10(A) , No pain 10:47:50 59 9 100 23.2 147/79(101) NSR 0 (11) 10(A) , No pain 10:52:06 58 10 96 35.2 164/86(132) NSR 0 (11) 10(A) , No pain Medications Time Medication Route Dose Verified Delivered Reason Notes Effectiveness by by 9:55:06 0.9% NaCl I.V. kvo Alverto Itzel used for Ryan Field manager of hospital 9:55:12 Oxygen etCO2 2 Alverto Itzel used for Nasal l/min Ryan Field procedure cannula RN 9:55:19 Lidocaine 2% added 20ml Alverto Alverto for local to vial Ryan Davis MD anesthetic field 9:55:23 Heparin Flush added 2 Alverto Alverto used for Bag to bags Ryan Davis MD procedure (1000units/500ml field NS) 10:23:49 Versed I.V. 2 mg Alverto Itzel for sedation Ryan Field RN 10:23:57 Fentanyl I.V. 50 Alverto Itzel for sedation mcg Ryan Field RN 10:28:04 Fentanyl I.V. 50 Alverto Itzel for sedation mcg Ryan Field RN 10:33:10 Heparin Bolus I.V. 4000 Alverto Itzel for verif ied units Ryan Field anticoagulation with Dr. LORA Davis Procedure Log Time Note 9:33:26 Informed consent obtained and on chart 9:34:17 Admit Source: Emergency department 9:35:51 Diagnostic Cath status Urgent 9:36:08 Kali Del Castillo RN sent for patient. Start room use. 9:36:09 Time tracking: Regular hours (M-F 7:00 - 5:00) 9:36:14 Plan of Care:Hemodynamics will remain stable., Cardiac rhythm will remain stable., Comfort level will be maintained., Respiratory function will remain adequate., Patient/ family verbilizes understanding of procedure., Procedure tolerated without complication., Recovers from procedure without complications.. 9:45:35 Patient received from Med II to CCL 1 Alert and oriented. Tansferred to table in Supine position. 9:45:36 Warm blankets applied, and cherise hugger turned on for patient comfort. 9:45:37 Correct patient and procedure confirmed by team. 9:45:51 ECG and BP/O2 sat monitors applied to patient. 9:54:51 Vital chart was started 9:55:06 0.9% NaCl kvo I.V. was administered by Itzel Field RN; used for procedure; 9:55:12 Oxygen 2 l/min etCO2 Nasal cannula was administered by Itzel Field RN; used for procedure; 9:55:19 Lidocaine 2% 20ml vial added to field was administered by Alverto Davis MD; for local anesthetic; 9:55:23 Heparin Flush Bag (1000units/500ml NS) 2 bags added to field was administered by Alverto Davis MD; used for procedure; 10:02:11 Baseline sample Acquired. 10:02:17 Rhythm: sinus rhythm 10:02:19 Full Disclosure recording started 10:02:41 H&P Date Dictated: 09/24/2018 Within 30 days and on chart.. 10:02:43 Pre-procedure instructions explained to patient. 10:02:43 Pre-op teaching completed and patient verbalized understanding. 10:02:50 Family unavailable. 10:02:51 Patient NPO since Midnight. 10:03:08 Patient allergic to No known allergies 10:03:10 Is the patient allergic to Iodine/contrast media? No. 10:03:12 Is patient on blood thinner?Yes 10:03:16 ACC The patient was administered the following blood thiners within the last 24 hours: ACCPlavix 10:08:15 Patient diabetic? No. 10:08:22 Previous problem with sedation/anesthesia? No ? 10:08:23 Snore? Yes 10:08:24 Sleep apnea? No 10:08:25 Deviated septum? No 10:08:26 Opens mouth fully? Yes 10:08:27 Sticks out tongue? Yes 10:08:30 Airway obstruction? No ? 10:08:32 Dentures? Yes out 10:09:25 Pre procedure: right dorsailis pedis pulse 1+ Palpable, but thready & weak; easily obliterated 10:09:26 Pre procedure: left dorsailis pedis pulse 1+ Palpable, but thready & weak; easily obliterated 10:09:29 Patient pain scale 0/10 ?. 10:09:43 IV patent on arrival in right IJ with 0.9% NaCl at [facility]. 10::47 Lab Result : BUN 60 mg/dl 10::47 Lab Result : Hemoglobin 11.4 g/dl 10::47 Lab Result : Creatinine 9.6 mg/dl 10::47 Lab Result : Hematocrit 34.1 % 10:10:50 Lab results completed and on chart. 10:11:27 Bilateral groins area was prepped with chlora-prep and draped in sterile fashion 10:11:29 Alarms reviewed by R. N. 10:11:30 Sharps counted by scrub and verified by R.N. 10:11:33 Use device set Femoral Dx 10:11:34 ACIST Syringe (48348) opened to sterile field. 10:11:34 Bag Decanter (2002S) opened to sterile field. 10:11:36 ACIST Hand Control (65864) opened to sterile field. 10:11:36 ACIST Manifold (48019) opened to sterile field. 10:11:37 Tegaderm 4 x 4 (1626W) opened to sterile field. 10:11:37 SHEATH 5FR Warwick (JUR615) opened to sterile field. 10:11:38 Medline Cath Pack ([id number]) opened to sterile field. 10:11:39 DIAGNOSTIC WIRE .035 260cm J wire (422975) opened to sterile field. 10:11:40 DIAGNOSTIC Multipack 5Fr catheter set (NB0407) opened to sterile field. 10:12:04 Physician arrived 10:17:38 Zero performed for pressure channel P1 10:22:33 --------ALL STOP TIME OUT------ 10:22:33 Final Timeout: patient, procedure, and site verified with staff and physician. All members of the team are in agreement. 10:22:35 Bilateral groins site verified by team. 10:22:40 Maximum allowable Isovue 300 dose 35.4ml. Physician notified. (300ml for normal creatinines. For patients with creatinine of 1.7 or higher multiply weight(kg) x 5 divided by creatinine.) 10:22:43 Fire Safety Assessment: A--An alcohol-based skin anteseptic being used preoperatively., C--Open oxygen or nitrous oxide is being used., D--An ESU, laser, or fiber-optic light is being used. 10:22:45 Physical assessment completed. ASA score P 2 - A patient with mild systemic disease as per Alverto Davis MD. 10::49 Sedation plan: IV Moderate Sedation Medication:Versed, Fentanyl 10::51 Procedure started. 10:23:00 Local anesthetic to right femoral artery with Lidocaine 2% by Alverto Davis MD.INITIAL ACCESS ONLY 10::49 Versed 2 mg I.V. was administered by Itzel Field RN; for sedation; 10::57 Fentanyl 50 mcg I.V. was administered by Itzel Field RN; for sedation; 10::57 A 5 Fr sheath was inserted into the Right Femoral artery 10:24:45 A DIAGNOSTIC UF 5Fr catheter ([id number]) was advanced over the wire and used for Procedure. 10:25:27 Abdominal angiogram w/ runoff was performed. 10:25:31 Left leg runoff performed. 10:26:06 Right leg runoff performed. 10:27:35 EXOSEAL 5Fr (EX500) opened to sterile field. 10:27:40 SHEATH 6FR Warwick (RUP226) opened to sterile field. 10:27:41 Catheter removed. 10:27:51 GLIDE WIRE Super Stiff Angled 260cm (DG1167) opened to sterile field. 10:27:52 INFLATOR Merit BasixCompak (OB7417) opened to sterile field. 10:28:04 Fentanyl 50 mcg I.V. was administered by Itzel Field RN; for sedation; 10:29:44 CHOICE PT Extra Support J 300cm guide wire ([id number]) opened to sterile field. 10:29:54 Sheath removed intact; hemostasis achieved with Exoseal to the Right Femoral artery. 10:30:11 Local anesthetic to left femerol artery with Lidocaine 2% by Alverto Davis MD.ADDITIONAL ACCESS 10:31:17 TORQUE DEVICE PLASTIC .038 ( TD01) opened to sterile field. 10:31:46 A 6 Fr Short sheath was inserted into the Left Femoral artery 10:32:34 A DIAGNOSTIC UF 5Fr catheter (099706H0) was advanced over the wire and used for Procedure. 10:32:42 glide wire advanced. 10:32:53 glide wire advanced around horn. 10:33:08 SHEATH 6FR Destination (RSR01) opened to sterile field. 10:33:10 Heparin Bolus 4000 units I.V. was administered by Itzel Field RN; for anticoagulation; verified with Dr. Davis 10:34:05 Catheter removed. 10:34:19 Sheath upsized to a 6 Fr Mid-Length. 10:35:08 Wire removed. 10:35:12 choice pt es wire advanced. 10:36:45 Wire advanced across lesion. 10:38:46 Inflate balloon Inflation number: 1 A SABER 6.0 x 8 x 150 balloon ([id number]) was prepped and advanced across the Distal Superficial Femoral, Right , then inflated to 11 KARLY for 0:10 (min:sec) . 10:39:25 Balloon removed over the wire. 10:40:54 SMART 6 X 80 X 120 stent ([id number]) was deployed across Distal Superficial Femoral, Right . 10:41:58 Inflation number: 2 The SABER 6.0 x 8 x 150 balloon ([id number]) was reinflated across the Distal Superficial Femoral, Right , to 11 KARLY for 0:10 (min:sec) . 10:41:59 Stent catheter was removed intact over wire. 10:42:22 Inflation number: 3 The SABER 6.0 x 8 x 150 balloon ([id number]) was reinflated across the Distal Superficial Femoral, Right , to 11 KARLY for 0:10 (min:sec) . 10:43:21 Balloon removed over the wire. 10:43:30 Wire removed. 10:43:47 Sheath upsized to a 6 Fr Short. 10:43:53 EXOSEAL 6Fr (EX600) opened to sterile field. 10:44:05 Sheath removed intact; hemostasis achieved with Exoseal to the Left Femoral artery. 10:44:07 Procedure ended.(Physican Out) 10:44:22 Fluoroscopy time 05.40 minutes. 10:44: Fluoroscopy dose: 103 mGy 10:44: Flurop Dose total: 103 10:49:59 Contrast amount:Isovue 370 70ml. 10:50:00 Sharps counted by scrub and verified by R.N. 10:50:01 Insertion/operative site no bleeding no hematoma. 10:50:04 Post-op/insertion site Right Femoral artery dressed using a 4 x 4 and Tegaderm. 10:50:07 Post-op/insertion site Left Femoral artery dressed using a 4 x 4 and Tegaderm. 10:50:12 Post right femoral artery:stable, soft, clean and dry 10:50:16 Post left femerol artery:stable, soft, clean and dry 10:50:18 Post Procedure Pulses reassessed and unchanged 10:50:20 Post-procedure physical assessment completed. ASA score P 2 - A patient with mild systemic disease as per Alverto Davis MD. 10:50:22 Post procedure rhythm: unchanged. 10:50:25 Estimated blood loss: 10 ml 10:50:26 Post procedure instruction explained to patient.Patient verbalizes understanding. 10:50:26 Patient needs reinforcement of post procedure teaching. 10:50:50 Procedure type changed to Cath procedure, Peripheral Cath Diagnostic Procedure, Gourmet Coffee Attendant Peripheral Procedures, Eqpjo-Gocfftw-Hqv-Off, Peripheral vascular Intervention, Stent, Stent-Fem/Popw/plasty 10:52:47 Procedure and supply charges have been captured, reviewed, submitted and are correct. 10:52:50 Procedure Complication : No complications 10:53:03 Vital chart was stopped 10:53:04 See physician's report for complete and final results. 10:53:12 Report given to PCU. 10:53:14 Patient transfered to PCU with Stretcher. 10:53:15 Procedure ended. 10:53:15 Full Disclosure recording stopped 10:53:22 End room use (Document Last) Intervention Summary Intervention Notes Time ActionType Lesion and Equipment Action# Pressure Duration Attributes Used 10:38:46 Inflate Distal SABER 6.0 x 1 11 00:10 balloon Superficial 8 x 150 Femoral, balloon Right ([id number]) 10:40:54 Deploy self Distal SMART 6 X 1 expanding Superficial 80 X 120 stent Femoral, stent Right ([id number]) 10:41:58 Reinflate Distal SABER 6.0 x 2 11 00:10 balloon Superficial 8 x 150 Femoral, balloon Right ([id number]) 10:42:22 Reinflate Distal SABER 6.0 x 3 11 00:10 balloon Superficial 8 x 150 Femoral, balloon Right ([id number]) Device Usage Item Name Manufacture Quantity Catalog Number Hospital Part Current Minim al Lot# / Charge Number Stock Stock Serial# Code ACIST Acist 1 56536 457722 999745 556824 20 Syringe Medical (17536) Systems Inc Bag Microtek 1 404477 12202 081004 5 Decanter Medical Inc. () ACIST Hand Acist 1 48467 815574 221287 489948 5 Control Medical (37302) Systems Inc ACIST Acist 1 48016 318977 149592 042895 5 Manifold Medical (35844) Systems Inc Tegaderm 4 3M 1 1626W 220097 743171 678617 5 x 4 (1626W) SHEATH 5FR Terumo 1 KRZ474 640740 213740 643879 5 Warwick (JVG610) Medline Medline 1 [id number] 972940 38029 734919 5 Cath Pack ([id number]) DIAGNOSTIC St Kwame 1 200386 660399 102261 528470 30 WIRE .035 260cm J wire (304082) DIAGNOSTIC Cardinal 1 WZ6600 855877 31201 997682 30 Multipack Health 5Fr catheter set (XI0270) DIAGNOSTIC Cardinal 1 [id number] 800706 460591 778166 10 UF 5Fr Health catheter (787433W5) EXOSEAL 5Fr Cardinal 1 EX500 310488 436471 387017 10 (EX500) Health SHEATH 6FR Terumo 1 KFB457 262477 430806 686449 40 Warwick (EWT759) GLIDE WIRE Terumo 1 BX5038 614215 668694 272505 5 Super Stiff Angled 260cm (QR4715) INFLATOR Merit 1 DP2485 649238 055846 740018 15 [facility] Medical BasixCompak (NY8601) CHOICE PT [place] 1 [id number] 2259332 376699 514968 5 Extra Scientific Support J 300cm guide wire (1238227T0) TORQUE [place] 1 TD01 202381 472746 393927 5 DEVICE Scientific PLASTIC .038 ( TD01) SHEATH 6FR Terumo 1 RSR01 345905 77590 085098 5 Destination (RSR01) SABER 6.0 x Cardinal 1 [id number] 490755 054498 194428 5 8 x 150 Health balloon ([id number]) SMART 6 X Cardinal 1 [id number] 060474 045097 009288 0 80 X 120 Health stent ([id number]) EXOSEAL 6Fr Cardinal 1 EX600 711283 053696 597090 10 (EX600) Health Signature Audit [place] Stage Time Signature Unsigned Intra-Procedure 09/29/2018 Matthew Cunningham 10:55:30 AM RT(R) Signatures Monitor : Matthew Cunningham RT Signature : Date : Time : [address] [address]
--- NOTE | ~2018-09-24 | HEMODYNAMI ---
PATIENT:PETEY REDDY MEDICAL RECORD: [id number] : 46 LOCATION:[facility] D.2114 ADMISSION DATE: 09/24/18 Generatedon:09/27/20189:45 Patient name: PETEY REDDY Patient #: [id number] SSN: : 1950 Date of study: 09/27/2018 Page: Of Hemodynamic Procedure Report Patient Data Patient Demographics Procedure consent was obtained First Name: PETEY Gender: Male Last Name: BARRY : 1950 Patient #: [id number] Age: 68 year(s) Race: Additional ID: [id number] Contact details Address: [address] [place] [address] State: [place] City: [place] Zip code: [address] Past Medical History Allergies: No known allergies Admission Admission Data Admission Date: 09/24/2018 Admission Time: 23:23 Room #: 2114 Procedure Procedure Types Cath Procedure Diagnostic Procedure LHC LHC w/Coronaries w/Grafts PCI Procedure AMI/SVG/DECORATOR STREET AND BUILDING PTCA or Stent SVG-BMS/WINSTON Initial Procedure Description Procedure Date Procedure Date: 09/27/2018 Procedure Start Time: 9:25 Procedure End Time: 9:43 Procedure Staff Name Function Alverto Davis MD Performing Physician Erika Puckett RT Scrub Itzel Field RN Nurse Rosemarie Posey RT Monitor Procedure Data Cath Procedure Fluoroscopy Diagnostic fluoroscopy Total fluoroscopy Time: 5.4 time: 5.4 min min Diagnostic fluoroscopy Total fluoroscopy dose: 286 dose: 286 mGy mGy Contrast Material Contrast Material Type Amount (ml) Isovue 300 69 Entry Location Entry Primary Successful Side Size Upsize Upsize Entry Closure Succes sful Closure Location (Fr) 1 (Fr) 2 (Fr) Remarks Device Remarks Femoral Right 5 Fr 6 Fr Exoseal artery Short Estimated blood loss: 10 ml Diagnostic catheters Device Type Used For End Catheter Placement DIAGNOSTIC Pigtail 5Fr Procedure catheter ([id number]) DIAGNOSTIC JL 5 5Fr Procedure catheter ([id number]) DIAGNOSTIC IM 5Fr Procedure catheter ([id number]) Procedure Complications No complications Procedure Medications Medication Administration Route Dosage 0.9% NaCl I.V. Oxygen etCO2 Nasal cannula 2 l/min Lidocaine 2% added to field 20 Heparin Flush Bag added to field 2 bags (1000units/500ml NS) Versed I.V. 2 mg Fentanyl I.V. 50 mcg Lopressor I.V. 5 mg Heparin Bolus I.V. 5000 units Lopressor I.V. 5 mg Hemodynamics Rest Heart Rate: 100 (bpm) Snapshots Pre Cath Intra NCS Post Cath Vital Signs Time Heart Resp SPO2 etCO2 NIBP (mmHg) Rhythm Pain Sedation Rate (ipm) (%) (mmHg) Status Level (bpm) 9:12:15 93 17 100 22.3 164/104(128) NSR 0 (11) 10(A) , No pain 9:16:37 92 16 98 24.6 169/95(136) NSR 0 (11) 10(A) , No pain 9:21:04 94 19 100 15.6 161/113(139) NSR 0 (11) 10(A) , No pain 9:25:22 91 17 100 17.1 166/106(133) NSR 0 (11) 10(A) , No pain 9:29:40 102 12 100 21.6 163/108(138) ST 0 (11) 9(A) , No pain 9:33:54 89 13 100 32 153/100(135) NSR 0 (11) 9(A) , No pain 9:38:08 86 15 100 19.3 154/99(136) NSR 0 (11) 10(A) , No pain 9:42:24 89 5 20.8 156/106(142) NSR 0 (11) 10(A) , No pain Medications Time Medication Route Dose Verified Delivered Reason Notes Effectiveness by by 9:11:01 0.9% NaCl I.V. kvo Alverto Itzel used for Ryan Field survey associate 9:11:09 Oxygen etCO2 2 Alverto Itzel used for Nasal l/min Ryan Field procedure cannula RN 9:15:04 Lidocaine 2% added 20ml Alverto Del Toro for local to vial Ryan Davis MD anesthetic field 9:15:12 Heparin Flush added 2 Alverto Del Toro used for Bag to bags Ryan Davis MD procedure (1000units/500ml field NS) 9:25:58 Versed I.V. 2 mg Alverto Itzel for sedation Ryan Field RN 9:26:05 Fentanyl I.V. 50 Alverto Itzel for sedation mcg Ryan Field RN 9:31:15 Lopressor I.V. 5 mg Alverto Castilloyla Per physician Ryan Field RN 9:33:41 Heparin Bolus I.V. 5000 Alverto Itzel for verifi ed units Ryan Field anticoagulation with Dr. LORA Davis 9:35:47 Lopressor I.V. 5 mg Alverto Castilloyla Per physician Ryan Field RN Procedure Log Time Note 8:50:32 Informed consent obtained and on chart 8:50:50 Diagnostic Cath Status : Elective 8:51:19 Erika Puckett RT(R) sent for patient. Start room use. 8:51:20 Time tracking: Regular hours (M-F 7:00 - 5:00) 8:51:25 Plan of Care:Hemodynamics will remain stable., Cardiac rhythm will remain stable., Comfort level will be maintained., Respiratory function will remain adequate., Patient/ family verbilizes understanding of procedure., Procedure tolerated without complication., Recovers from procedure without complications.. 9:05:38 Patient received from Med II to CCL 1 Alert and oriented. Tansferred to table in Supine position. 9:05:39 Warm blankets applied, and cherise hugger turned on for patient comfort. 9:05:40 Correct patient and procedure confirmed by team. 9:05:42 ECG and BP/O2 sat monitors applied to patient. 9:07:31 Full Disclosure recording started 9:10:04 Rhythm: sinus rhythm 9:10:08 Vital chart was started 9:10:14 H&P Date Dictated: 09/25/2018 Within 30 days and on chart.. 9:10:16 Pre-procedure instructions explained to patient. 9:10:16 Pre-op teaching completed and patient verbalized understanding. 9:10:18 Family unavailable. 9:10:19 Patient NPO since Midnight. 9:10:25 Patient allergic to No known allergies 9:10:27 Is the patient allergic to Iodine/contrast media? No. 9:10:29 Is patient on blood thinner?Yes 9:10:32 ACC The patient was administered the following blood thiners within the last 24 hours: ACCPlavix 9:10:54 Patient diabetic? No. 9:11:01 0.9% NaCl kvo I.V. was administered by Itzel Field RN; used for procedure; 9:11:04 Previous problem with sedation/anesthesia? No ? 9:11:08 Snore? Yes 9:11:09 Oxygen 2 l/min etCO2 Nasal cannula was administered by Itzel Field RN; used for procedure; 9:11:09 Sleep apnea? No 9:11:10 Deviated septum? No 9:11:11 Opens mouth fully? Yes 9:11:12 Sticks out tongue? Yes 9:11:13 Airway obstruction? No ? 9:11:17 Dentures? Yes OUT 9:11:31 Patient pain scale 0/10 ?. 9:11:38 Patient pain scale 10/10 Chest. 9:11:49 Pre procedure: right dorsailis pedis pulse 1+ Palpable, but thready & weak; easily obliterated 9:11:58 IV patent on arrival in right IJ with 0.9% NaCl at KVO. 9:12:02 Lab results completed and on chart. 9:12:08 Right groin area was prepped with chlora-prep and draped in sterile fashion 9:12:19 Use device set Femoral Dx 9:12:20 ACIST Syringe (47067) opened to sterile field. 9:12:21 Bag Decanter (2002) opened to sterile field. 9:12:21 Medline Cath Pack ([id number]) opened to sterile field. 9:12:22 DIAGNOSTIC WIRE .035 260cm J wire (186816) opened to sterile field. 9:12:23 ACIST Hand Control (62114) opened to sterile field. 9:12:24 ACIST Manifold (93622) opened to sterile field. 9:12:26 SHEATH 5FR Strat[place] (CAE743) opened to sterile field. 9:12:48 RESERVE LEFT ARM 9:13:44 Alarms reviewed by RPasha N. 9:15:04 Lidocaine 2% 20ml vial added to field was administered by Alverto Davis MD; for local anesthetic; 9:15:12 Heparin Flush Bag (1000units/500ml NS) 2 bags added to field was administered by Alverto Davis MD; used for procedure; :: --------ALL STOP TIME OUT------ ::37 Final Timeout: patient, procedure, and site verified with staff and physician. All members of the team are in agreement. ::38 Right groin site verified by team. 9::44 Maximum allowable Isovue 300 dose ?ml. Physician notified. (300ml for normal creatinines. For patients with creatinine of 1.7 or higher multiply weight(kg) x 5 divided by creatinine.) 9::47 Fire Safety Assessment: A--An alcohol-based skin anteseptic being used preoperatively., C--Open oxygen or nitrous oxide is being used., D--An ESU, laser, or fiber-optic light is being used. 9::49 Physical assessment completed. ASA score P 2 - A patient with mild systemic disease as per Alverto Davis MD. 9::51 Sedation plan: IV Moderate Sedation Medication:Versed, Fentanyl 9::54 Procedure started. 9::34 Local anesthetic to right femoral artery with Lidocaine 2% by Alverto Davis MD.INITIAL ACCESS ONLY 9::58 Versed 2 mg I.V. was administered by Itzel Field RN; for sedation; 9::05 Fentanyl 50 mcg I.V. was administered by Itzel Field RN; for sedation; 9:26:08 Zero performed for pressure channel P1 9::38 A 5 Fr sheath was inserted into the Right Femoral artery 9::49 A DIAGNOSTIC Pigtail 5Fr catheter ([id number]) was advanced over the wire and used for Procedure. 9::51 Zero performed for pressure channel P1 9::55 Zero performed for pressure channel P1 9:27:06 Baseline sample Acquired. 9:28:14 LV gram done using LORENZO 9::17 Injector settings: Ml/sec: 10, Volume: 20, 9:28:29 EF : 40 % 9:28:30 Catheter removed. 9:29:05 A DIAGNOSTIC JL 5 5Fr catheter ([id number]) was advanced over the wire and used for Procedure. 9:29:21 LCA angiography performed. 9:29:23 Catheter removed. 9:29:35 A DIAGNOSTIC IM 5Fr catheter ([id number]) was advanced over the wire and used for Procedure. 9:31:00 JAMISON to LAD angiography performed. 9:31:15 Lopressor 5 mg I.V. was administered by Itzel Field RN; Per physician; 9:31:41 SVG to Diag angiography performed. 9:31:44 Catheter removed. 9::58 SHEATH 6FR [place] (AEO934) opened to sterile field. 9::58 CHOICE PT Extra Support 182cm wire ([id number]) opened to sterile field. 9::58 INFLATOR Merit BasixCompak (FX5581) opened to sterile field. 9:32:13 Sheath upsized to a 6 Fr Short. 9:32:23 GUIDE 6FR AR 2.0 SH catheter ([id number]) opened to sterile field. 9:32:35 6 Fr AR 2 SH guide catheter was inserted over the wire 9:33:41 Heparin Bolus 5000 units I.V. was administered by Itzel Field RN; for anticoagulation; verified with Dr. Davis 9:34:22 CHOICE ES 182 wire advanced. 9:34:24 Wire advanced across lesion. 9:35:19 Inflate balloon Inflation number: 1 A EUPHORA 3.5 x 30 Balloon ([id number]) was prepped and advanced across the Undefined2, then inflated to 10 KARLY for 0:00 (min:sec). 9:35:24 Inflation number: 1 The EUPHORA 3.5 x 30 Balloon ([id number]) was reinflated across the Aorta Left -> 1st Diag, to 10 KARLY for 0:00 (min:sec). 9:35:30 Inflation number: 2 The EUPHORA 3.5 x 30 Balloon ([id number]) was reinflated across the Aorta Left -> 1st Diag, to 15 KARLY for 0:00 (min:sec). 9:35:47 Lopressor 5 mg I.V. was administered by Itzel Field RN; Per physician; ::58 Balloon removed over the wire. 9:37:10 Place stent Inflation Number: 3 A SUMIT RX 3.5 x 38 stent ([id number]) was prepped and advanced across the Aorta Left -> 1st Diag. The stent was deployed at 21 KARLY for 0:10 (min:sec). 9:37:31 Stent catheter was removed intact over wire. 9:37:36 Wire removed. 9:37:37 Guide catheter removed. 9:37:43 EXOSEAL 6Fr (EX600) opened to sterile field. 9:38:10 Sheath removed intact; hemostasis achieved with Exoseal to the Right Femoral artery. 9:38:28 Procedure ended.(Physican Out) 9:39:22 Fluoroscopy time 05.40 minutes. 9:39:28 Flurop Dose total: 286 9:39:28 Fluoroscopy dose: 286 mGy 9:39:32 Contrast amount:Isovue 300 69ml. 9:39:33 Sharps counted by scrub and verified by R.N. 9:39:36 Post-op/insertion site Right Femoral artery dressed using a 4 x 4 and Tegaderm. 9:39:38 Post-procedure physical assessment completed. ASA score P 3 - A patient with severe systemic disease as per Alverto Davis MD. 9:39:41 Post procedure rhythm: sinus rhythm 9:39:44 Estimated blood loss: 10 ml 9:39:59 Post procedure instruction explained to patient.Patient verbalizes understanding. 9:39:59 Patient needs reinforcement of post procedure teaching. 9:41:32 Procedure type changed to Cath procedure, Diagnostic procedure, LHC, LHC w/Coronaries w/Grafts, PCI procedure, AMI/SVG/DECORATOR STREET AND BUILDING PTCA or Stent, SVG-BMS/WINSTON Initial 9:41:58 Procedure and supply charges have been captured, reviewed, submitted and are correct. 9:42:00 Procedure Complication : No complications 9:43:40 Vital chart was stopped 9:43:40 See physician's report for complete and final results. 9:43:43 Report given to [facility] II. 9:43:49 Patient transfered to [facility] with Bed. 9:43:51 Procedure ended. 9:43:51 Full Disclosure recording stopped 9:43:54 End room use (Document Last) Intervention Summary Intervention Notes Time ActionType Lesion and Equipment Used Action# Pressure Duration Attributes 9:35:19 Inflate Undefined2 EUPHORA 3.5 x 1 10 00:00 balloon 30 Balloon ([id number]) 9:35:24 Reinflate Aorta Left EUPHORA 3.5 x 1 10 00:00 balloon -> 1st Diag 30 Balloon ([id number]) 9:35:30 Reinflate Aorta Left EUPHORA 3.5 x 2 15 00:00 balloon -> 1st Diag 30 Balloon ([id number]) 9:37:10 Place stent Aorta Left SUMIT RX 3.5 x 3 21 00:10 -> 1st Diag 38 stent ([id number]) Device Usage Item Name Manufacture Quantity Catalog Number Hospital Part Current M inimal Lot# / Charge Number Stock Stock Serial# Code ACIST Syringe Acist 1 80560 300996 957704 335615 2 0 (86744) Medical Systems Inc Bag Decanter Microtek 1 163335 36401 934736 5 () Medical Inc. Medline Cath Medline 1 [id number] 535416 58106 693962 5 Pack ([id number]) DIAGNOSTIC St Kwame 1 197110 799347 652604 701924 3 0 WIRE .035 260cm J wire (160814) ACIST Hand Acist 1 23200 500688 097417 952808 5 Control Medical (13059) Systems Inc ACIST Manifold Acist 1 22958 600751 902678 871536 5 (53374) Medical Systems Inc SHEATH 5FR Terumo 1 CKX296 408298 079298 101544 5 Stratford (PCC771) DIAGNOSTIC Cardinal 1 236349E 055747 056619 806652 5 Pigtail 5Fr Health catheter (694647Y) DIAGNOSTIC JL Cardinal 1 [id number] 042696 092361 837209 5 5 5Fr catheter Health (062808H) DIAGNOSTIC IM Cardinal 1 [id number] 381371 824513 975240 5 5Fr catheter Health (536438J) SHEATH 6FR Terumo 1 LZY152 448628 111610 182910 4 0 Stratford (COS943) CHOICE PT [place] 1 [id number] 699859 363024 973998 5 Extra Support Scientific 182cm wire ([id number]) INFLATOR Merit Merit 1 DH0883 839688 563032 648387 1 5 [employer] (HO3901) GUIDE 6FR AR Medtronic 1 [id number] 416596 67251 018202 1 2.0 SH catheter ([id number]) EUPHORA 3.5 x Medtronic 1 [id number] 278301 132405 462645 5 [id number] 30 Balloon ([id number]) SUMIT RX 3.5 x Medtronic 1 [id number] 667396 0441426 972913 5 [id number] 38 stent ([id number]) EXOSEAL 6Fr Cardinal 1 EX600 484722 398003 648096 1 0 (EX600) Health Signature Audit [place] Stage Time Signature Unsigned Intra-Procedure 09/27/2018 Rosemarie Posey 9:45:29 AM RT(R) Signatures Monitor : Rosemarie Posey Signature : RT Date : Time : [address] [address]
[~2018-09-24 22:31] MED LIST changes: +METOPROLOL TART50 MG PO
[2018-09-24] MEDS ORDERED: RANITIDINE PO (22:50)
[2018-09-24] MEDS ORDERED: RENVELA800 MG PO (22:51)
[2018-09-24] MEDS ORDERED: TYLENOL W/CODEI1 TAB PO (22:51)
[2018-09-24] MEDS ORDERED: ZYRTEC10 MG PO (22:51)
[2018-09-24 23:00] VITALS: BP 123/74
[2018-09-24 23:29] LABS: HEMATOCRIT 33.6 % (42.0-54.0); HEMOGLOBIN 11.2 g/dL (13.5-17.5); MCH 28.9 pg (26.0-34.0); MCHC 33.3 g/dL (31.0-37.0); MCV 86.8 fL (80.0-100.0); MEAN PLATELET VOLUME 10.5 fL (7.4-10.4); RBC 3.87 10x6/uL (4.20-6.10); RDW 15.1 % (11.5-14.5); WBC 5.4 10x3/uL (4.8-10.8)
[2018-09-24 23:31] VITALS: BP 112/64
[2018-09-24 23:35] LABS: INR 1.36 (0.85-1.17); PROTIME 16.2 SECONDS (11.6-15.0)
[2018-09-24 23:36] LABS: APTT 84.9 SECONDS (22.8-39.4)
[2018-09-24 23:56] LABS: CKMB 30.9 U/L (0.0-3.6); CREATINE KINASE 263 UL (21-232)
[2018-09-25] VITALS (7 sets, daily range): BP systolic 112–155; BP diastolic 62–80; Ht 177.8 cm; Wt 68.2 kg
--- NOTE | 2018-09-25 00:41 | NUR ---
PT ARRIVED VIA W/C FROM ER. NO DISTRESS NOTED.
--- NOTE | 2018-09-25 01:27 | NUR ---
MORPHINE 4MG, ZOFRAN 4MG SIVP GIVEN FOR C/O CP 12/09 AT 0100 HRS. ADMISSION ASSESSMENT, HISTORY AND HOME MED LIST COMPLETED. PT UNSURE OF SOME OF HIS MEDS. STATES HIS SISTER MANAGES THEM FOR HIM. IV TO R NECK WITH HEPARIN AT 1000U/HR. IV PATENT. LUNGS DIMINISHED IN BASES BILAT. L ARM FISTULA WITH GOOD BRUIT AND THRILL. ALERT AND ORIENTED TO PERSON, PLACE AND TINME. SR PER CM HR 70. VSS. O2 2LNC. PT STATES AT THIS TIME NO CP. EXPLAINED RATIONALE FOR HEPARIN DRIP AND RATIONALE FOR NPO UNTIL SEEN BY CARDIOLOGY. PT STATED UNDERSTANDING. SR UP X2, CALL LIGHT WITHIN REACH.
--- NOTE | 2018-09-25 03:02 | NUR ---
PT RESTING WITH EYES CLOSED. RESP EVEN AND REGULAR. SR UP X2, CALL LIGHT WITHIN REACH.
--- NOTE | 2018-09-25 04:54 | NUR ---
PT AWAKE; DENIES ANY CP OR PRESSURE. CALL LIGHT WITHIN REACH.
--- NOTE | 2018-09-25 06:30 | NUR ---
VSS THROUGHOUT NIGHT. SR PER CM. PT DENIED ANY CP/DISCOMFORT AFTER MORPHINE ADMINISTRATION. NEEDS MET; WILL CONTINUE TO MONITOR.
[2018-09-25 06:58] LABS: BASOPHILS 0 % (0-2); EOSINOPHILS 1.6 % (0-7); HEMATOCRIT 39.7 % (42.0-54.0); HEMOGLOBIN 13.1 g/dL (13.5-17.5); IMMATURE GRANULOCYTES 0.2 % (0-5); LYMPHOCYTES 34.1 % (15-50); MCH 29.1 pg (26.0-34.0); MCV 88.2 fL (80.0-100.0); MEAN PLATELET VOLUME 11.7 fL (7.4-10.4); MONOCYTES 14.9 % (2-11); NEUTROPHILS 49.2 % (40-80); WBC 6.4 10x3/uL (4.8-10.8)
[2018-09-25 07:03] LABS: PLATELET COUNT 156 10x3/uL (130-400)
--- NOTE | 2018-09-25 07:24 | NUR ---
APTT 116.5 HEPARIN GTT STOPPED FOR 30 MINUTES AND RATE DECREASED TO 800 UNITS/HR ON RESTART PT RESTING QUIETLY EYES CLOSED RESP UNLABORED SKIN W/D COLOR WNL NAD NOTED
[2018-09-25 07:52] LABS: CALC OSMOLALITY 295 mosm/kg (275-300); CALCIUM 9.8 mg/dL (8.5-10.1); CARBON DIOXIDE 31.6 mmol/L (21.0-32.0); CHLORIDE - SERUM 93 mmol/L (98-107); CKMB 38.5 U/L (0.0-3.6); CREATINE KINASE 307 UL (21-232); CREATININE - SERUM 10.7 mg/dL (0.6-1.3); GLUCOSE 97 mg/dL (74-106); MAGNESIUM - SERUM 2.2 mg/dL (1.8-2.4); POTASSIUM - SERUM 4.5 mmol/L (3.5-5.1); SODIUM 139 mmol/L (136-145); UREA NITROGEN 64 mg/dL (7-18); eGFR NON AFRICAN AMERICAN 5 mL/min (90-120)
[2018-09-25 07:53] LABS: TROPONIN-I 20.908 ng/mL (0.000-0.060)
--- NOTE | 2018-09-25 13:35 | NUR ---
PT TO DIALYSIS VIA BED DENIES ANY NEEDS OR DISCOMFORT NAD NOTET
--- NOTE | 2018-09-25 19:29 | NUR ---
RESUMING PATIENT CARE. PATIENT IS ALERT AND ORIENTED, RESTING COMFORTABLY IN BED. RESPIRATIONS ARE EVEN AND UNLABORED. NO S/S OF DISTRESS. NO C/O PAIN. NEEDS MET. CALL LIGHT WITHIN REACH. WILL CPOC.
[2018-09-26] VITALS: BP 106/62
[2018-09-26 04:00] VITALS: BP 124/58
[2018-09-26 05:25] LABS: BASOPHILS 0.2 % (0-2); EOSINOPHILS 1.5 % (0-7); HEMATOCRIT 38.6 % (42.0-54.0); HEMOGLOBIN 12.7 g/dL (13.5-17.5); IMMATURE GRANULOCYTES 0.2 % (0-5); LYMPHOCYTES 24.7 % (15-50); MCH 29.2 pg (26.0-34.0); MCHC 32.9 g/dL (31.0-37.0); MCV 88.7 fL (80.0-100.0); MEAN PLATELET VOLUME 11.7 fL (7.4-10.4); MONOCYTES 9.5 % (2-11); NEUTROPHILS 63.9 % (40-80); PLATELET COUNT 128 10x3/uL (130-400); RBC 4.35 10x6/uL (4.20-6.10); RDW 14.8 % (11.5-14.5)
[2018-09-26 05:33] LABS: WBC 4.6 10x3/uL (4.8-10.8)
[2018-09-26 05:50] LABS: ANION GAP 24.2 mmol/L (8-16); CARBON DIOXIDE 24.5 mmol/L (21.0-32.0); CREATININE - SERUM 9.6 mg/dL (0.6-1.3); PHOSPHOROUS 8.2 mg/dL (2.5-4.9); POTASSIUM - SERUM 4.7 mmol/L (3.5-5.1)
--- NOTE | 2018-09-26 07:23 | NUR ---
ASSESSMENT DONE. DENIES NEEDS.
[2018-09-26 07:47] VITALS: BP 153/79
--- NOTE | 2018-09-26 12:20 | NUR ---
I have reviewed this patient and I concur with the Shift Assessment completed by the Licensed Practical Nurse today this shift.
[2018-09-26 16:16] VITALS: BP 139/80
[2018-09-26 16:22] VITALS: BP 97/60
--- NOTE | 2018-09-26 16:48 | NUR ---
WITHOUT CHANGES OR DISTRESS NOTED AT THIS TIME. DENIES NEEDS.
[2018-09-26 20:00] VITALS: BP 104/60
[2018-09-27 00:30] VITALS: BP 134/72
--- NOTE | 2018-09-27 01:33 | NUR ---
PAGED RENAL ARTS THERAPIST. PATIENT AV FISTULA CONTINUED TO BLEED. REINFORCED DRESSING 3 TIMES. SPOKE WITH BRANDY DIALLO, ORDERS GIVEN TO D/C'd HEPARIN.
--- NOTE | 2018-09-27 03:28 | NUR ---
WHEN ROUNDING ON PATIENT. I FOUND THAT THE AV FISTULA DRESSING WAS SATURATED WITH BLOOD ALONG WITH GOWN AND A PORTION OF HIS BED. TOOK OFF SATURATED DRESSING. CLEANED AREA. HELD MANUAL PRESSURE FOR APRROX. 5 MINUTES. NO ACTIVE BLEEDING. REDRESSED AREA. WITH 4X4 AND COBAN.
[2018-09-27 04:30] VITALS: BP 134/76
[2018-09-27 05:45] LABS: BASOPHILS 0 % (0-2); EOSINOPHILS 1.3 % (0-7); HEMATOCRIT 35.5 % (42.0-54.0); HEMOGLOBIN 11.9 g/dL (13.5-17.5); IMMATURE GRANULOCYTES 0.2 % (0-5); LYMPHOCYTES 24.3 % (15-50); MCH 28.9 pg (26.0-34.0); MCHC 33.5 g/dL (31.0-37.0); MEAN PLATELET VOLUME 11.8 fL (7.4-10.4); MONOCYTES 17.4 % (2-11); NEUTROPHILS 56.8 % (40-80); PLATELET COUNT 143 10x3/uL (130-400); RBC 4.12 10x6/uL (4.20-6.10); RDW 14.9 % (11.5-14.5); WBC 5.4 10x3/uL (4.8-10.8)
[2018-09-27 06:01] LABS: MCV 86.2 fL (80.0-100.0)
[2018-09-27 06:42] LABS: CARBON DIOXIDE 25.3 mmol/L (21.0-32.0); CREATININE - SERUM 11.9 mg/dL (0.6-1.3); PHOSPHOROUS 8.9 mg/dL (2.5-4.9); POTASSIUM - SERUM 4.3 mmol/L (3.5-5.1)
--- NOTE | 2018-09-27 07:15 | NUR ---
RECEIVED PT IN BED SITTING ON SIDE AAOX4 RESP UNLABORED SKIN W/D COLOR WNL DRSG C/D/I TO TATIANA PAREDES NOTED WITH GOOD THRILL AND BRUIT PT C/O OF SOME INDIGESTION AT THIE TIME
[2018-09-27 07:56] VITALS: BP 133/77
--- NOTE | 2018-09-27 09:05 | NUR ---
TO MANUSCRIPT READER VIA BED
--- NOTE | 2018-09-27 10:00 | NUR ---
RECEIVED PT BACK FROM HEAD SULFIDE OPERATOR VIA BED VSS RESP UNLABORED O2 ON 2LPN NC DRSG C/D/I TO RT LESLEE PPPX4 WILL CONTINUE TO MONITOR
--- NOTE | 2018-09-27 10:45 | NUR ---
PT TO DIALYSIS VIA BED
--- NOTE | 2018-09-27 13:02 | NUR ---
Nutrition follow-up: Pt NPO for heart cath this morning; now in dialysis PO intake of renal diet has been ~40% average of last 3 meals Labs reviewed Wt: 150#, stable from admit RDN following.
[2018-09-27 16:33] VITALS: BP 151/86
--- NOTE | 2018-09-27 19:16 | NUR ---
RESUMING PATIENT CARE. PATIENT IS ALERT AND ORIENTED, RESTING COMFORTABLY IN BED. RESPIRATIONS ARE EVEN AND UNLABORED. NO S/S OF DISTRESS. NO C/O PAIN. NEED MET. CALL LIGHT WITHIN REACH. WILL CPOC.
[2018-09-27 20:00] VITALS: BP 92/60
--- NOTE | 2018-09-27 22:35 | NUR ---
PATIENT RESTING COMFORTABLY IN BED. RESPIRATIONS ARE EVEN AND UNLABORED. NO S/S OF DISTRESS. NO C/O PAIN. DENIES NEEDS. CALL LIGHT WITHIN REACH. WILL CPOC.
[2018-09-28] VITALS (7 sets, daily range): BP systolic 90–119; BP diastolic 45–92
[2018-09-28 05:24] LABS: BASOPHILS 0.2 % (0-2); EOSINOPHILS 0.4 % (0-7); HEMATOCRIT 34.1 % (42.0-54.0); HEMOGLOBIN 11.4 g/dL (13.5-17.5); IMMATURE GRANULOCYTES 0.4 % (0-5); MCH 29.1 pg (26.0-34.0); MCHC 33.4 g/dL (31.0-37.0); MEAN PLATELET VOLUME 10.9 fL (7.4-10.4); MONOCYTES 16.2 % (2-11); NEUTROPHILS 58.8 % (40-80); PLATELET COUNT 134 10x3/uL (130-400); RBC 3.92 10x6/uL (4.20-6.10); WBC 5.7 10x3/uL (4.8-10.8)
[2018-09-28 05:45] LABS: CALCIUM 9.5 mg/dL (8.5-10.1); CARBON DIOXIDE 27.3 mmol/L (21.0-32.0); CREATININE - SERUM 9.6 mg/dL (0.6-1.3); PHOSPHOROUS 7.7 mg/dL (2.5-4.9); POTASSIUM - SERUM 4.3 mmol/L (3.5-5.1)
--- NOTE | 2018-09-28 14:38 | NUR ---
TELEMETRY SR. LARA NEEDS OR C/O. CALL LIGHT IN REACH. WILL MONITOR.
--- NOTE | 2018-09-28 19:36 | NUR ---
RESUMING PATIENT CARE. PATIENT IS RESTING COMFORTABLY IN BED. RESPIRATIONS ARE EVEN AND UNLABORED. NO S/S OF DISTRESS. NO C/O PAIN. CALL LIGHT WITHIN REACH. WILL CPOC.
[2018-09-29 00:30] VITALS: BP 113/53
[2018-09-29 05:30] VITALS: BP 127/66
[2018-09-29 06:14] LABS: BASOPHILS 0.2 % (0-2); EOSINOPHILS 1.8 % (0-7); HEMATOCRIT 32.3 % (42.0-54.0); HEMOGLOBIN 10.7 g/dL (13.5-17.5); IMMATURE GRANULOCYTES 0.3 % (0-5); LYMPHOCYTES 25.6 % (15-50); MCH 28.8 pg (26.0-34.0); MCHC 33.1 g/dL (31.0-37.0); MCV 86.8 fL (80.0-100.0); MEAN PLATELET VOLUME 10.4 fL (7.4-10.4); MONOCYTES 10.3 % (2-11); NEUTROPHILS 61.8 % (40-80); PLATELET COUNT 125 10x3/uL (130-400); RBC 3.72 10x6/uL (4.20-6.10); RDW 14.8 % (11.5-14.5); WBC 6.1 10x3/uL (4.8-10.8)
[2018-09-29 06:43] LABS: ANION GAP 17.8 mmol/L (8-16); CALCIUM 8.8 mg/dL (8.5-10.1); CARBON DIOXIDE 26.8 mmol/L (21.0-32.0); CREATININE - SERUM 12.7 mg/dL (0.6-1.3); POTASSIUM - SERUM 4.6 mmol/L (3.5-5.1)
[2018-09-29 08:52] VITALS: BP 120/70
--- NOTE | 2018-09-29 09:43 | NUR ---
PRE-OPS GIVEN. TO CLINICAL ACADEMIC ALLERGIST BY BED. WILL CONT. PLAN OF CARE.
--- NOTE | 2018-09-29 09:57 | MORECARE ---
CASE MANAGEMENT DISCHARGE SUMMARY PATIENT: PETEY REDDY UNIT: [id number] ADM DATE: 09/24/18 AGE: 68 : [birth year] SEX: M ROOM/BED: D.2114 AUTHOR: DEEPDOC PHYSICIAN: REFERRING PHYSICIAN: MARJORIE FRANKS MD DATE OF SERVICE: 09/29/18 Discharge Plan Patient Name: PETEY REDDY Facility: [facility]:[place] : 1950 Planned Disposition: Home or Self Care Anticipated Discharge Date: Discharge Date: Expected LOS: Initial Reviewer: [email or web address] Initial Review Date: 09/25/2018 Generated: 09/29/18 10:57 am Comments DCP- Discharge Planning Updated by [email or web address]: Erick Kemp on 09/28/18 2:[address] Patient Name: PETEY REDDY Admission Status: ER Accout number: [id number] Admission Date: 09-24-2018 : 1950 Admission Diagnosis:OTHER SPECIFIED ABNORMAL FINDINGS OF BLOOD CHEMISTRY Attending: MARJORIE FRANKS Current LOS: 4 Anticipated DC Date: Planned Disposition: Primary Insurance: MEDICARE A & B Discharge Planning Comments: CM MET WITH PT IN ROOM TO DISCUSS DISCHARGE PLANNING AND NEEDS. PT REPORTS LIVING AT HOME INDEPENDENTLY AND ALONE; PT'S SISTER LIVES NEXT DOOR AND ASSISTS NEEDED AND STAYS THE NIGHT WITH PT IN THE HOME. PT HAS ROLLING WALKER FROM [employer]. PT HAS HOME HEALTH WITH [facility] FOR NURSING AND PHYS[facility] THERAP[facility]. CM DISCUSSED AVAILABILITY OF HOME HEALTH, REHAB SERVICES AND MEDICAL EQUIPMENT. PT DENIES DISCHARGE NEED AND WANTS HIS HOME HEALTH RESUMED WHEN HE GOES HOME FROM THE HOSPTIAL. CONSENT SIGNED. PT REPORTS HE WILL CALL HIS SISTER WHO WILL PICK HIM UP FOR DISCHARGE HOME. IMPORTANT MESSAGE FROM MEDICARE PROVIDED AND EXPLAINED. CM CALLED [facility] IN [place], , SPOKE TO DESIRAE WHO TOOK REFERRAL INFORMATION AND WILL PLACE PT BACK ON SCHEDULE FOR RESUMPTION OF HOME HEALTH CARE AT DISCHARGE. CM FAXED REFERRAL INFORMATION TO [facility] AT [phone]. FOR DISCHARGE, NOTIFY [facility] IN [place], , FAX DISCHARGE INFORMATION TO [facility] AT [phone]. CM TO FOLLOW AND ASSIST NEEDED. [place] Pilot: Erick Kemp DCP- Discharge Planning Updated by [id number]: Erick Kemp on 09/27/18 1:[address] Patient Name: PETEY REDDY Admission Status: ER Accout number: [id number] Admission Date: 09-24-2018 : 1950 Admission Diagnosis:OTHER SPECIFIED ABNORMAL FINDINGS OF BLOOD CHEMISTRY Attending: MARJORIE FRANKS Current LOS: 3 Anticipated DC Date: Planned Disposition: Primary Insurance: MEDICARE A & B Discharge Planning Comments: CM ATTEMPTED TO MEET WITH PT FOR INITIAL ASSESSMENT OF DISCHARGE NEEDS. PT WAS NOT IN ROOM AT APPROXIMATELY 0925 HOURS. CM TO ATTEMPT ASSESSMENT OF PT AT A LATER TIME. [place] Pilot: Erick Kemp DCPIA - Discharge Planning Initial Assessment Updated by [id number]: Erick Kemp on 09/28/18 3:41 pm * Is the patient Alert and Oriented? Yes * How many steps to enter\exit or inside your home? NONE * PCP DR. HAO RANDALL * Pharmacy [facility] [place] * Preadmission Environment Home Alone * ADLs Independent * Equipment Rolling Walker * Other Equipment [place] [employer], MEDICAL EQUIPMENT PROVIDER * List name and contact numbers for known caregivers / representatives who currently or will assist patient after discharge: KELECHI REDDY, , [address] [address] * Verbal permission to speak to the caregivers and representatives has been obtained from the patient. Yes * Community resources currently utilized Home Health * Please name any agencies selected above. [facility] * Additional services required to return to the preadmission environment? No * Can the patient safely return to the preadmission environment? Yes * Has this patient been hospitalized within the prior 30 days at any hospital? No External Providers External Provider: [facility] Next Contact Date: 09/29/2018 Service Request Date: Service Type: Resolution: Reviewer: Comments: Coverage Notice Reviewer: [email or web address] - Erick Kemp Notice Issued Date-Time: 09/28/2018 14:50 Notice Type: Patient Choice Letter Notice Delivered To: Patient Relationship to Patient: Scullion Chief Name: Delivery Method: HAND - Hand Delivered Araceli Days: Prior Verbal Notification: Recipient Understood Notice: Yes Recipient Signature: Yes Med Rec Note Co-signed by Attending: Coverage Notice Comment: [facility] Reviewer: [id number] - Erick Kemp Notice Issued Date-Time: 09/28/2018 14:50 Notice Type: IM Discharge Notice Notice Delivered To: Patient Relationship to Patient: Scullion Chief Name: Delivery Method: - Araceli Days: Prior Verbal Notification: Recipient Understood Notice: Yes Recipient Signature: Yes Med Rec Note Co-signed by Attending: Coverage Notice Comment: Patient Name: PETEY REDDY Page [phone] at 0957 All edits/amendments must be made on the electronic document DICTATION DATE: 09/29/18955 PACKING ROOM WORKER: JYOTSNA 09/29/1856 RPT#: [id number] DC DATE: STATUS: ADM IN [facility] [address] [place] [address] END OF REPORT
--- NOTE | 2018-09-29 10:26 | NUR ---
FIDEL HU CALLED TO SEE WHEN PT FELL. SHE STATED THAT HE FELL AT HOME SAT BEFORE HE CAME TO [facility] AND HADNT TOLD ANY TILL NOW. HE TOLD DR. ARCEO HE WAS HAVING SOME BLURRED VISION. WILL MONITOR.
--- NOTE | 2018-09-29 11:10 | NUR ---
BACK FROM GENERATOR REPAIRER. VS WNL. RIGHT AND LEFT GROIN STABLE WITHOUT BLEEDING NOTED. WILL MONITOR.
--- NOTE | 2018-09-29 11:28 | OP ---
PATIENT NAME: PETEY REDDY MEDICAL RECORD: [id number] :46 LOCATION:D.M2 D.2114 ADMISSION DATE:09/24/18 SURGEON: HEIDI ARCEO MD DATE OF OPERATION: 09/29/2018 PROCEDURES: 1. Stent placement SFA, right. 2. METAL SHAPING MACHINE OPERATOR SFA, right. 3. Aortofemoral runoff. 4. Abdominal aortography. INDICATION: Claudication, peripheral vascular disease, limb threatening ischemia. PROCEDURE PERFORMED: After informed consent was obtained and after a detailed description of risks, benefits as well as alternative therapies, the patient elected to proceed with angiogram and angioplasty. The left femoral area was prepped and draped in normal sterile fashion. Left femoral artery was cannulated via modified Seldinger technique with placement of a 6-[place] yktujh-maj-hpup sheath. All catheters exchanged through this sheath. FINDINGS: Abdominal aortography was performed. The catheter was pulled down for aortofemoral runoff. Abdominal aortography reveals no significant abdominal aortic disease, no dissection or aneurysm formation. RIGHT LEG: A. Iliac: The common internal and external iliacs have moderate irregularities, but no flow-limiting stenosis. B. Femoral system: The common and deep femoral are widely patent. Superficial femoral has a 90% stenosis in the mid distal vessel. C. Popliteal and infrapopliteal vessels: Popliteal has a previously placed stent. This is widely patent. There is 2-vessel runoff through the posterior tibial and peroneal. Anterior tibial is chronically totally occluded. LEFT LEG: A. Iliac: The common internal and external iliacs have moderate irregularities, but no flow-limiting stenosis. B. Femoral system: The common superficial and deep femoral have moderate irregularities, but no flow-limiting stenosis. C. Popliteal and infrapopliteal vessels: The popliteal is widely patent and infrapopliteal vessels are all chronically totally occluded. METAL SHAPING MACHINE OPERATOR STENT OF THE RIGHT SFA: The balloon used was a 6.0 balloon. This yielded suboptimal results with severe intimal dissection. Stenting was undertaken with a 6 x 80 Cordis SMART stent. Result was 0% residual stenosis. OVERALL IMPRESSION: Successful METAL SHAPING MACHINE OPERATOR stent of the right SFA going from 80% to 90% initial stenosis to 0% residual. TRANSINT:[id number] Voice Confirmation ID: [id number] DOCUMENT ID: [id number] OPERATIVE REPORT [id number] PETEY REDDY JEFFREY MD at 1128 CC: [id number] DICTATION DATE: 09/29/18 1050 EMBROIDERY SPECIALIST: 09/29/18 1111 ADM IN [place] [id number] [place] [id number]
--- NOTE | 2018-09-29 11:28 | CN ---
PATIENT NAME:PETEY REDDY MEDICAL RECORD: [id number] : 46 LOCATION:D. D.2114 ADMIT DATE: 09/24/18 ACCOUNT: [id number] CONSULTING PHYSICIAN: HEIDI ARCEO MD REFERRING PHYSICIAN: MARJORIE FRANKS MD DATE OF CONSULTATION: 09/25/2018 DIAGNOSES: 1. Non-Q-wave myocardial infarction. 2. Coronary artery disease. 3. Previous multivessel PTCA and stent. 4. Claudication. 5. Peripheral vascular disease. 6. End-stage renal failure, on dialysis. 7. Hypertension. 8. Hyperlipidemia. HISTORY OF PRESENT ILLNESS: Mr. Reddy is a gentleman known to us with previous multivessel PTCA and stent, last being in June. He was doing relatively well until Tuesday. He began having chest pain on Tuesday. It escalated over the weekend. He is pain free now. His troponin is 21. He as well complains of claudication symptomatology in both legs; however, his left leg appears worse than the right. He is status post POPULATION HEALTH COACH and stent of SFA and popliteal last year. PHYSICAL EXAMINATION: GENERAL APPEARANCE: Well-nourished, well-developed, appears stated age. Level of distress, comfortable. PSYCHIATRIC: Mental status, alert, normal affect. Orientation, oriented to time, place and person. EYES: Lids and conjunctiva, noninjected. No discharge, no pallor. ENT: Lips, teeth, gums, normal dentition. Oropharynx, no cyanosis, no pallor. NECK: Carotid arteries, bilateral normal upstroke, no bruits, no thrills. JUGULAR VEINS: No jugular venous pressure or distention. CERVICAL LYMPH NODES: Nontender, nonenlarged. THYROID: Not enlarged. Nontender. No nodules. LUNGS: Respiratory effort, unlabored. CHEST: Normal curvature. No thoracic deformity. No chest wall tenderness. Percussion, resonant. Auscultation, clear. No wheezes, no rales, no rhonchi. CARDIOVASCULAR: Precordial exam, nondisplaced. No heaves or pericardial thrills. Rate and rhythm, regular. Heart sounds, normal S1, normal S2. No S3, no gallop, no rub. Systolic murmur, not heard. Diastolic murmur, not heard. EXTREMITIES: No cyanosis, no edema. He has poor pulses in both legs distally at 0 to +1. No bruits appreciated. ABDOMEN: Soft, nondistended. Normal aorta. No bruit. Nontender. No masses. Liver, nontender, no hepatomegaly. Spleen, nontender, no splenomegaly. MUSCULOSKELETAL: No joint tenderness. No joint swelling. No erythema. NEUROLOGICAL: Normal gait, normal strength, normal tone. SKIN: Warm and dry. OVERALL IMPRESSION: 1. Non-Q-wave myocardial infarction. No doubt he has recurrent hemodynamically significant coronary artery disease with a troponin of 21. He is pain free now. He is planned for dialysis tomorrow. We will plan for cardiac catheterization CONSULT REPORT [id number] PETEY REDDY on Tuesday a.m. 2. Claudication. He has bilateral lower extremity peripheral vascular disease. Most likely, he has recurrent hemodynamically significant stenosis in this territory as well. We will proceed with aortofemoral runoff in the near future as well. Further care depends upon the findings of these studies. TRANSINT:[id number] Voice Confirmation ID: [id number] DOCUMENT ID: [id number] HEIDI ARCEO MD at 1128 CC: [id number] DICTATION DATE: 09/25/18 1054 LOADER ENGINEER: 09/25/18 1228 ADM IN [facility] [address] [place] [address]
--- NOTE | 2018-09-29 11:28 | OP ---
PATIENT NAME: PETEY REDDY MEDICAL RECORD: [id number] :46 LOCATION:D.M2 D.2114 ADMISSION DATE:09/24/18 SURGEON: HEIDI ARCEO MD DATE OF OPERATION: 09/27/2018 PROCEDURES: 1. PTCA stent vein graft to left circumflex. 2. Left heart catheterization. 3. Selective coronary angiography. 4. Vein graft angiography. 5. JAMISON angiography. 6. Left ventriculogram. INDICATION: Non-Q-wave myocardial infarction and coronary artery disease. PROCEDURE PERFORMED: After informed consent was obtained and after detailed description of risks, benefits as well as alternative therapies, the patient elected to proceed with angiogram and angioplasty. The right femoral area was prepped and draped in normal sterile fashion. Right femoral artery was cannulated via modified Seldinger technique with placement of 6-Upper Sorbian sheath. All catheters exchanged through this sheath. FINDINGS: The left ventriculogram was performed in standard 30-degree LORENZO view, reveals global hypokinesis, ejection fraction in the 40% range. SELECTIVE CORONARY ANGIOGRAPHY: 1. Left main is 99%. 2. Left anterior descending is closed. 3. Left circumflex is closed. 4. Right coronary artery is closed. 5. JAMISON to the LAD is patent. Distal LAD has previously placed stents, these are widely patent with no significant restenosis. No disease elsewise throughout the distal LAD. 6. The vein graft to the circumflex is patent; however, there is 95% stenosis proximally. DAM WORKER STENT OF THE VEIN GRAFT TO THE CIRCUMFLEX: The stent used was a 3.5 x 38 mm [place] taken to 21 atmospheres. Result was 0% residual stenosis. OVERALL IMPRESSION: Successful percutaneous transluminal coronary angioplasty stent of the vein graft to the circumflex going from 95% initial stenosis to 0% residual. TRANSINT:[id number] Voice Confirmation ID: [id number] DOCUMENT ID: [id number] HEIDI ARCEO MD at 1128 CC: [id number] DICTATION DATE: 09/27/18 0943 TERMITE TECHNICIAN: 09/27/18 1210 [place] [address]
[2018-09-29 12:29] VITALS: BP 140/65
--- NOTE | 2018-09-29 14:11 | NUR ---
LEAVING FOR CT BY BED. WILL MONITOR.
--- NOTE | 2018-09-29 15:00 | NUR ---
BED REST UP. GROINS STABLE.
--- NOTE | 2018-09-29 16:08 | NUR ---
LEAVING FOR DIALYSIS BY BED. WILL CONT. PLAN OF CARE.
[2018-09-29 18:00] VITALS: BP 126/67
--- NOTE | 2018-09-29 19:00 | NUR ---
RESUMING PATIENT CARE. PATIENT IS CURRENTLY IN DIALYSIS.
[2018-09-29 20:00] VITALS: BP 128/71
--- NOTE | 2018-09-29 22:15 | NUR ---
PATIENT RESTING COMFORTABLY IN BED. RESPIRATIONS ARE EVEN AND UNLABORED. NO S/S OF DISTRESS. NEEDS MET. CALL LIGHT WITHIN REACH. WILL CPOC.
[2018-09-30 00:30] VITALS: BP 131/57
--- NOTE | 2018-09-30 01:48 | NUR ---
assuming care of patient, introduced self. no s/s of distress noted. bed in low position. call light in reach. will ctm.
--- NOTE | 2018-09-30 04:16 | NUR ---
PT SITTING UP IN BED WITH EYES CLOSED, RR EVEN AND UNLABORED. BED IN LOW POSITION. NO S/S OF DISTRESS NOTED. 66 NORMAL SINUS ON TELEMETRY. CALL LIGHT IN REACH. WILL CTM.
[2018-09-30 04:30] VITALS: BP 132/59
[2018-09-30 05:47] LABS: BASOPHILS 0.2 % (0-2); EOSINOPHILS 0.3 % (0-7); HEMATOCRIT 32.4 % (42.0-54.0); HEMOGLOBIN 10.6 g/dL (13.5-17.5); IMMATURE GRANULOCYTES 0.2 % (0-5); LYMPHOCYTES 15.2 % (15-50); MCH 28.6 pg (26.0-34.0); MCHC 32.7 g/dL (31.0-37.0); MCV 87.6 fL (80.0-100.0); MEAN PLATELET VOLUME 11.3 fL (7.4-10.4); MONOCYTES 13.4 % (2-11); NEUTROPHILS 70.7 % (40-80); PLATELET COUNT 140 10x3/uL (130-400); RDW 14.7 % (11.5-14.5); WBC 6.4 10x3/uL (4.8-10.8)
[2018-09-30 06:11] LABS: ANION GAP 15.8 mmol/L (8-16); CALCIUM 9.1 mg/dL (8.5-10.1); CARBON DIOXIDE 28.9 mmol/L (21.0-32.0); POTASSIUM - SERUM 4.7 mmol/L (3.5-5.1)
[2018-09-30 06:19] LABS: PHOSPHOROUS 6.2 mg/dL (2.5-4.9)
--- NOTE | 2018-09-30 07:15 | NUR ---
RECEIVED PT IN BED AAOX4 RESP UNLABORED SKIN W/D DENIES ANY PAIN OR NEEDS AT THIS TIME
[2018-09-30 09:33] VITALS: BP 145/79
[2018-09-30] MEDS ORDERED: ISOSORBIDE MONO30 M1 PO (11:50)
[2018-09-30 13:00] VITALS: BP 124/72
--- NOTE | 2018-09-30 15:14 | NUR ---
REVIEWED DISCHARGE INSTRUCTIONS WITH PT STATES UNDERSTANDING COPY GIVEN DCD RT EJ SALINE LOCK WITH IV CATHETER INTA T SITE FREE OF REDNESS OR EDEMA PT DISCHARGED HOME IN STABLE CONDITION LEFT VIA W/C WITH ALL PERSONAL BELONGINGS
--- NOTE | 2018-10-02 09:35 | MORECARE ---
CASE MANAGEMENT DISCHARGE SUMMARY PATIENT: PETEY REDDY UNIT: [id number] ADM DATE: 09/24/18 AGE: 68 : 46 SEX: M ROOM/BED: D.2114 AUTHOR: YANNI ADAME PHYSICIAN: REFERRING PHYSICIAN: MARJORIE FRANKS MD DATE OF SERVICE: 10/02/18 Discharge Plan Patient Name: PETEY REDDY Facility: [facility]:[place] : 1950 Planned Disposition: Home with Home Health Anticipated Discharge Date: 09/30/18 Discharge Date: 09/30/2018 Expected LOS: 6 Initial Reviewer: [email or web address] Initial Review Date: 09/25/2018 Generated: 10/02/18 10:34 am Comments DCP- Discharge Planning Updated by [email or web address]: Erick Kemp on 10/02/18 8:[address] Patient Name: PETEY REDDY Encounter No: [id number] : 1950 Primary Insurance: MEDICARE A & B Anticipated DC Date: 09-30-2018 Planned Disposition: Home with Home Health External Planned Provider: [facility] DCP follow-up note: CM REVIEWED CHART, PT DISCHARGED HOME OVER WEEKEND. CM FAXED DISCHARGE INFORMATION TO [facility] IN [place] AT [phone]. Commercial Subcontractor: Erick Kemp DCP- Discharge Planning Updated by [email or web address]: Erick Kemp on 09/28/18 2:[address] Patient Name: PETEY REDDY Admission Status: ER Accout number: [id number] Admission Date: 09-24-2018 : 1950 Admission Diagnosis:OTHER SPECIFIED ABNORMAL FINDINGS OF BLOOD CHEMISTRY Attending: MARJORIE FRANKS Current LOS: 4 Anticipated DC Date: Planned Disposition: Primary Insurance: MEDICARE A & B Discharge Planning Comments: CM MET WITH PT IN ROOM TO DISCUSS DISCHARGE PLANNING AND NEEDS. PT REPORTS LIVING AT HOME INDEPENDENTLY AND ALONE; PT'S SISTER LIVES NEXT DOOR AND ASSISTS NEEDED AND STAYS THE NIGHT WITH PT IN THE HOME. PT HAS ROLLING WALKER FROM [employer]. PT HAS HOME HEALTH WITH [facility] FOR NURSING AND PHYSICAL THERAPY. CM DISCUSSED AVAILABILITY OF HOME HEALTH, REHAB SERVICES AND MEDICAL EQUIPMENT. PT DENIES DISCHARGE NEED AND WANTS HIS HOME HEALTH RESUMED WHEN HE GOES HOME FROM THE HOSPTIAL. CONSENT SIGNED. PT REPORTS HE WILL CALL HIS SISTER WHO WILL PICK HIM UP FOR DISCHARGE HOME. IMPORTANT MESSAGE FROM MEDICARE PROVIDED AND EXPLAINED. CM CALLED [facility] IN [place], , SPOKE TO DESIRAE WHO TOOK REFERRAL INFORMATION AND WILL PLACE PT BACK ON SCHEDULE FOR RESUMPTION OF HOME HEALTH CARE AT DISCHARGE. CM FAXED REFERRAL INFORMATION TO [facility] AT [phone]. FOR DISCHARGE, NOTIFY [facility] IN [place], , FAX DISCHARGE INFORMATION TO [facility] AT [phone]. CM TO FOLLOW AND ASSIST NEEDED. Commercial Subcontractor: Erick Kemp DCP- Discharge Planning Updated by [id number]: Erick Kemp on 09/27/18 1:[address] Patient Name: PETEY REDDY Admission Status: ER Accout number: [id number] Admission Date: 09-24-2018 : 1950 Admission Diagnosis:OTHER SPECIFIED ABNORMAL FINDINGS OF BLOOD CHEMISTRY Attending: MARJORIE FRANKS Current LOS: 3 Anticipated DC Date: Planned Disposition: Primary Insurance: MEDICARE A & B Discharge Planning Comments: CM ATTEMPTED TO MEET WITH PT FOR INITIAL ASSESSMENT OF DISCHARGE NEEDS. PT WAS NOT IN ROOM AT APPROXIMATELY 0925 HOURS. CM TO ATTEMPT ASSESSMENT OF PT AT A LATER TIME. Commercial Subcontractor: Erick Kemp DCPIA - Discharge Planning Initial Assessment Updated by [email or web address]: Erick Kemp on 09/28/18 3:41 pm * Is the patient Alert and Oriented? Yes * How many steps to enter\exit or inside your home? NONE * PCP DR. HAO RANDALL * Pharmacy [facility] IN [place] * Preadmission Environment Home Alone * ADLs Independent * Equipment Rolling Walker * Other Equipment [place] [employer], MEDICAL EQUIPMENT PROVIDER * List name and contact numbers for known caregivers / representatives who currently or will assist patient after discharge: KELECHI REDDY, SISTER, [address] [place] [address] * Verbal permission to speak to the caregivers and representatives has been obtained from the patient. Yes * Community resources currently utilized Home Health * Please name any agencies selected above. [facility], NURSING AND PHYSICAL THERAPY * Additional services required to return to the preadmission environment? No * Can the patient safely return to the preadmission environment? Yes * Has this patient been hospitalized within the prior 30 days at any hospital? No Coverage Notice Reviewer: [id number] Roel Kemp Notice Issued Date-Time: 09/28/2018 14:50 Notice Type: Patient Choice Letter Notice Delivered To: Patient Relationship to Patient: Therapist'S Assistant Name: Delivery Method: HAND - Hand Delivered Araceli Days: Prior Verbal Notification: Recipient Understood Notice: Yes Recipient Signature: Yes Med Rec Note Co-signed by Attending: Coverage Notice Comment: [facility] Reviewer: [id number] Roel Kemp Notice Issued Date-Time: 09/28/2018 14:50 Notice Type: IM Discharge Notice Notice Delivered To: Patient Relationship to Patient: Therapist'S Assistant Name: Delivery Method: - Araceli Days: Prior Verbal Notification: Recipient Understood Notice: Yes Recipient Signature: Yes Med Rec Note Co-signed by Attending: Coverage Notice Comment: Last DP export: 09/29/18 8:57 a Patient Name: PETEY REDDY Page [id number] at 0935 All edits/amendments must be made on the electronic document DICTATION DATE: 10/02/18933 TUBE TESTER: [email or web address] 10/02/18933 RPT#: [id number] DC DATE:09/30/18 STATUS: DIS IN [facility] [address] [place] [address] END OF REPORT
== END 2018-09-30 15:14 | disposition home health service (06) | DRG 246 ==
LOC: D.ER 22:31 → D.M2 23:23
PROVIDERS: Family Medicine; Internal Medicine Interventional Cardiology; Internal Medicine Nephrology; ADMIT Internal Medicine Nephrology; ATTEND Internal Medicine Nephrology
PROC: 4A023N7 Measurement of Cardiac Sampling and Pressure, Left Heart, Percutaneous Approach (ICD-10-PCS; 2018-09-27)
PROC: B2121ZZ Fluoroscopy of Single Coronary Artery Bypass Graft using Low Osmolar Contrast (ICD-10-PCS; 2018-09-27)
PROC: B2181ZZ Fluoroscopy of Left Internal Mammary Bypass Graft using Low Osmolar Contrast (ICD-10-PCS; 2018-09-27)
PROC: B2111ZZ Fluoroscopy of Multiple Coronary Arteries using Low Osmolar Contrast (ICD-10-PCS; 2018-09-27)
PROC: B2151ZZ Fluoroscopy of Left Heart using Low Osmolar Contrast (ICD-10-PCS; 2018-09-27)
PROC: 027034Z Dilation of Coronary Artery, One Artery with Drug-eluting Intraluminal Device, Percutaneous Approach (ICD-10-PCS; principal; 2018-09-27 08:51)
PROC: 047K3DZ Dilation of Right Femoral Artery with Intraluminal Device, Percutaneous Approach (ICD-10-PCS; 2018-09-29 14:00)
DX: I21.4 Non-ST elevation (NSTEMI) myocardial infarction (principal); N18.6 End stage renal disease; I12.0 Hypertensive chronic kidney disease with stage 5 chronic kidney disease or end stage renal disease; I25.10 Atherosclerotic heart disease of native coronary artery without angina pectoris; Z99.2 Dependence on renal dialysis; E78.5 Hyperlipidemia, unspecified; D63.1 Anemia in chronic kidney disease; N25.0 Renal osteodystrophy; F17.210 Nicotine dependence, cigarettes, uncomplicated; I70.213 Atherosclerosis of native arteries of extremities with intermittent claudication, bilateral legs

== ENCOUNTER 2018-11-20 02:19 | Inpatient (IN) | payer MEDICARE ==
[~2018-11-20] VITALS: Ht 177.8 cm; Wt 69.9 kg
--- NOTE | ~2018-11-20 | HP ---
PATIENT: PETEY REDDY MEDICAL RECORD: [id number] ACCOUNT: [id number] LOCATION:[address] : 46 ADMISSION DATE: 11/20/18 PCP: TY PINEDA MD HISTORY AND PHYSICAL EXAMINATION DIAGNOSES: 1. Non-Q-wave myocardial infarction. 2. Coronary artery disease. 3. Previous coronary artery bypass graft surgery. 4. Previous multivessel percutaneous transluminal coronary angioplasty stent. 5. End-stage renal failure, on dialysis. 6. Hypertension. 7. Hyperlipidemia. 8. Aortic stenosis. HISTORY OF PRESENT ILLNESS: Mr. Reddy' last intervention was in August. His chest pain markedly improved, but after that; however, the past week, he has had daily episodes of chest pain. He had prolonged severe episode of chest pain last night and not relieved with multiple sublingual nitro. When he presented to [facility], he had ST-T changes in the lateral leads. These have resolved. He is pain free now. PHYSICAL EXAMINATION: GENERAL APPEARANCE: Well-nourished, well-developed, appears stated age. Level of distress, comfortable. PSYCHIATRIC: Mental status, alert, normal affect. Orientation, oriented to time, place and person. EYES: Lids and conjunctiva, noninjected. No discharge, no pallor. ENT: Lips, teeth, gums, normal dentition. Oropharynx, no cyanosis, no pallor. NECK: Carotid arteries, bilateral normal upstroke, no bruits, no thrills. JUGULAR VEINS: No jugular venous pressure or distention. CERVICAL LYMPH NODES: Nontender, nonenlarged. THYROID: Not enlarged. Nontender. No nodules. LUNGS: Respiratory effort, unlabored. CHEST: Normal curvature. No thoracic deformity. No chest wall tenderness. Percussion, resonant. Auscultation, clear. No wheezes, no rales, no rhonchi. CARDIOVASCULAR: Precordial exam, nondisplaced. No heaves or pericardial thrills. Rate and rhythm, regular. Heart sounds, normal S1, normal S2. No S3, no gallop, no rub. Systolic murmur, not heard. Diastolic murmur, not heard. EXTREMITIES: No cyanosis, no edema. Peripheral pulses, full and equal in all extremities, except as noted. No bruits appreciated. ABDOMEN: Soft, nondistended. Normal aorta. No bruit. Nontender. No masses. Liver, nontender, no hepatomegaly. Spleen, nontender, no splenomegaly. MUSCULOSKELETAL: No joint tenderness. No joint swelling. No erythema. NEUROLOGICAL: Normal gait, normal strength, normal tone. SKIN: Warm and dry. OVERALL IMPRESSION: Elevated troponin, non-Q-wave myocardial infarction. EKG changes in a patient with severe advanced coronary artery disease and end-stage renal failure, most likely there is a high likelihood he has recurrent hemodynamically significant disease. We will proceed with repeat coronary angiography. Further care depends upon findings of the angiography. TRANSINT:[id number] Voice Confirmation ID: [id number] DOCUMENT ID: [id number] HISTORY AND PHYSICAL [id number] PETEY REDDY JEFFREY MD CC: [id number] DICTATION DATE: 11/20/18854 HOME THERAPY CLINICIAN: 11/20/18 09 ADM IN [facility] [address] [place] [id number]
--- NOTE | ~2018-11-20 | OP ---
PATIENT NAME: PETEY REDDY MEDICAL RECORD: [id number] :46 LOCATION:D.M2 D.2116 ADMISSION DATE:11/20/18 SURGEON: HEIDI ARCEO MD DATE OF OPERATION: 11/21/2018 DATE OF SERVICE: 11/21/2018 PROCEDURES: 1. PTCA stent LAD through patent JAMISON graft. 2. Left heart catheterization. 3. Selective coronary angiography. 4. Vein graft angiography. 5. JAMISON angiography. INDICATION: Angina, coronary artery disease, non-Q-wave myocardial infarction. DESCRIPTION OF PROCEDURE: After informed consent was obtained and after a detailed description of the risks, benefits as well as alternative therapies, the patient elected to proceed with angiogram and angioplasty. The right femoral area was prepped and draped in normal sterile fashion. Right femoral artery was cannulated via modified Seldinger technique with placement of 6-Khmer sheath. All catheters exchanged through this sheath. FINDINGS: The left ventriculogram was performed in standard 30-degree LORENZO view, reveals mild global hypokinesis, ejection fraction 40%. SELECTIVE CORONARY ANGIOGRAPHY: 1. Left main is with no significant angiographic disease. 2. Left anterior descending is closed. 3. Left circumflex is closed. 4. Right coronary artery is closed. 5. JAMISON to the LAD is patent. There are previously placed stents in the LAD. After this, there is 95% in-stent restenosis. 6. Vein graft to the circumflex is patent. Previously placed stents are widely patent. PTCA STENT OF THE LAD THROUGH THE JAMISON: The stent used is a 2.5 x 8 mm [place]. Result was 0% residual stenosis. OVERALL IMPRESSION: Successful percutaneous transluminal coronary angioplasty stent of the left anterior descending through the left internal mammary artery graft going from 95% in-stent restenosis to 0% residual stenosis. TRANSINT:[id number] Voice Confirmation ID: [id number] DOCUMENT ID: [id number] HEIDI ARCEO MD CC: [id number] DICTATION DATE: 11/21/18 1014 FRAME CATCHER: 11/21/18 1121 ADM IN [place] [id number] [place] [address]
--- NOTE | ~2018-11-20 | HEMODYNAMI ---
PATIENT:PETEY REDDY MEDICAL RECORD: [id number] : 46 LOCATION:[address] [id number] ADMISSION DATE: 11/20/18 Generatedon:11/21/201810:12 Patient name: PETEY REDDY Patient #: [id number] SSN: : 1950 Date of study: 11/21/2018 Page: Of Hemodynamic Procedure Report Patient Data Patient Demographics Procedure consent was obtained First Name: PETEY Gender: Male Last Name: BARRY : 1950 Patient #: [id number] Age: 68 year(s) Race: Additional ID: [id number] Contact details Address: [address] [place] [address] State: [place] City: [place] Zip code: [address] Past Medical History Allergies: No known allergies Admission Admission Data Admission Date: 11/20/2018 Admission Time: 5:10 Room #: [facility] Lab Results Lab Result Date: 11/21/2018 Lab Result Time: 0:00 Biochemistry Name Units Result Min Max BUN mg/dl 67 --(----)-* 7 18 Creatinine mg/dl 11.6 --(----)-* 0.6 1.3 eGFR ml/min 5 *-(----)-- 90 120 NONAFRICAN CBC Name Units Result Min Max Hematocrit % 34.1 *-(----)-- 42 54 Hemoglobin g/dl 11.1 *-(----)-- 13.5 17.5 Procedure Procedure Types Cath Procedure Diagnostic Procedure LHC LHC w/Coronaries w/Grafts PCI Procedure AMI/SVG/SIXTH GRADE TEACHER PTCA or Stent SVG-BMS/WINSTON Initial Procedure Description Procedure Date Procedure Date: 11/21/2018 Procedure Start Time: 9:56 Procedure End Time: 10:09 Procedure Staff Name Function Alverto Davis MD Performing Physician Rosemarie Posey RT Monitor Itzel Field RN Nurse Tavo Hartman RN Paraprofessional Education Assistant Yazan Suit RT Scrub Procedure Data Cath Procedure Fluoroscopy Diagnostic fluoroscopy Total fluoroscopy Time: 6.2 time: 6.2 min min Diagnostic fluoroscopy Total fluoroscopy dose: 430 dose: 430 mGy mGy Contrast Material Contrast Material Type Amount (ml) Isovue 370 74 Entry Location Entry Primary Successful Side Size Upsize Upsize Entry Closure Succes sful Closure Location (Fr) 1 (Fr) 2 (Fr) Remarks Device Remarks Femoral Right 5 Fr 6 Fr Exoseal artery Short Diagnostic catheters Device Type Used For End Catheter Placement DIAGNOSTIC Pigtail 5Fr LV Angiography catheter ([id number]) DIAGNOSTIC JL 5 5Fr Left Coronary catheter ([id number]) Angiography DIAGNOSTIC IM 5Fr SVG Angiography catheter ([id number]) Procedure Complications No complications Procedure Medications Medication Administration Route Dosage 0.9% NaCl I.V. 100 ml/hr Oxygen etCO2 Nasal cannula 2 l/min Lidocaine 2% added to field 20 Heparin Flush Bag added to field 2 bags (1000units/500ml NS) Versed I.V. 2 mg Fentanyl I.V. 50 mcg Fentanyl I.V. 50 mcg Integrilin (Bolus I.V. 6.2 ml 2mg/ml) Plavix P.O. 600 mg Hemodynamics Rest Heart Rate: 70 (bpm) Snapshots Pre Cath Intra NCS Post Cath Vital Signs Time Heart Resp SPO2 etCO2 NIBP (mmHg) Rhythm Pain Sedation Rate (ipm) (%) (mmHg) Status Level (bpm) 9:38:06 67 13 100 30.8 180/81(108) NSR 0 (11) 10(A) , No pain 9:42:31 71 10 100 36.8 200/100(120) NSR 0 (11) 10(A) , No pain 9:47:03 74 16 100 19 188/88(154) NSR 0 (11) 10(A) , No pain 9:51:23 71 15 100 10.5 156/83(135) NSR 0 (11) 10(A) , No pain 9:55:44 69 16 100 16.5 149/78(117) NSR 0 (11) 10(A) , No pain 10:00:04 67 17 100 35 143/71(115) NSR 0 (11) 9(A) , No pain 10:05:03 66 11 100 34.6 Measuring NSR 0 (11) 9(A) , No pain 10:05:17 66 13 100 34.6 165/69(95) NSR 0 (11) 9(A) , No pain 10:09:41 66 16 100 35.3 159/76(135) NSR 0 (11) 10(A) , No pain Medications Time Medication Route Dose Verified Delivered Reason Notes E ffectiveness by by 9:37:04 0.9% NaCl I.V. 100 Alverto Itzel used for ml/hr Ryan Field teletypesetter operator 9:37:10 Oxygen etCO2 2 Alverto Itzel used for Nasal l/min Ryan Field procedure cannula RN 9:37:15 Lidocaine 2% added 20ml Alverto Alverto for local to vial Ryan Davis MD anesthetic field 9:37:19 Heparin Flush added 2 Alverto Alverto used for Bag to bags Ryan Davis MD procedure (1000units/500ml field NS) 9:51:09 Versed I.V. 2 mg Alverto Itzel for sedation Ryan Field RN 9:51:20 Fentanyl I.V. 50 Alverto Itzel for sedation mcg Ryan Field RN 9:56:29 Fentanyl I.V. 50 Alverto Itzel for sedation mcg Ryan Field RN 10:03:45 Integrilin I.V. 6.2 Alverto Itzel for wasted (Bolus 2mg/ml) ml Ryan Field antiplatelet 3.7mL RN therapy 10:05:02 Plavix P.O. 600 Alverto Itzel for mg Ryan Field antiplatelet RN therapy Procedure Log Time Note 9:17:58 Signed procedure consent form obtained from patient. 9:18:07 Procedure Status Urgent Heart Cath (IP). 9:18:09 Time tracking: Regular hours (M-F 7:00 - 5:00) 9:18:12 Plan of Care:Hemodynamics will remain stable., Cardiac rhythm will remain stable., Comfort level will be maintained., Respiratory function will remain adequate., Patient/ family verbilizes understanding of procedure., Procedure tolerated without complication., Recovers from procedure without complications.. 9:18:27 Patient allergic to No known allergies 9:20:06 Lab Result : BUN 67 mg/dl 9:20:06 Lab Result : eGFR NONAFRICAN 5 ml/min 9:20:06 Lab Result : Creatinine 11.6 mg/dl 9:20:06 Lab Result : Hematocrit 34.1 % 9:20:06 Lab Result : Hemoglobin 11.1 g/dl 9:20:28 Tavo Hartman RN sent for patient. Start room use. 9:32:48 Patient received from Med II to CCL 1 Alert and oriented. Tansferred to table in Supine position. 9:32:50 Warm blankets applied, and cherise hugger turned on for patient comfort. 9:32:50 Correct patient and procedure confirmed by team. 9:32:53 ECG and BP/O2 sat monitors applied to patient. 9:36:53 Vital chart was started 9:37:04 0.9% NaCl 100 ml/hr I.V. was administered by Itzel Field RN; used for procedure; 9:37:10 Oxygen 2 l/min etCO2 Nasal cannula was administered by Itzel Field RN; used for procedure; 9:37:15 Lidocaine 2% 20ml vial added to field was administered by Alverto Davis MD; for local anesthetic; 9:37:19 Heparin Flush Bag (1000units/500ml NS) 2 bags added to field was administered by Alverto Davis MD; used for procedure; 9:42:11 Baseline sample Acquired. 9:42:14 Rhythm: sinus rhythm 9:42:15 Full Disclosure recording started 9:42:50 H&P Date Dictated: 11/20/2018 Within 30 days and on chart.. 9:42:58 Pre-procedure instructions explained to patient. 9:43:01 Pre-op teaching completed and patient verbalized understanding. 9:43:02 Family unavailable. 9:43:04 Patient NPO since Midnight. 9:43:10 Is the patient allergic to Iodine/contrast media? No. 9:43:14 Is patient on blood thinner?Yes 9:43:26 Patient diabetic? No. 9:43:27 ----Pre-sedation anethsthesia assessment.---- 9:43:30 Previous problem with sedation/anesthesia? No ? 9:43:32 Snore? No 9:43:33 Sleep apnea? No 9:43:35 Deviated septum? No 9:43:44 Opens mouth fully? Yes 9:43:46 Sticks out tongue? Yes 9:43:51 Airway obstruction? Yes ? 9:43:53 Airway obstruction? No ? 9:43:54 Dentures? No ? 9:43:59 Pre procedure: right dorsailis pedis pulse 2+ Normal; easily identifiable; not easily obliterated 9:44:04 Patient pain scale 0/10 ?. 9:44:10 IV patent on arrival in right antecubital with 0.9% NaCl at KVO. 9:44:14 Lab results completed and on chart. 9:44:21 Right groin area was prepped with chlora-prep and draped in sterile fashion 9:44:22 Alarms reviewed by R. N. 9:44:23 Sharps counted by scrub and verified by R.N. 9:45:17 Physician arrived 9:50:43 --------ALL STOP TIME OUT------ 9:50:43 Final Timeout: patient, procedure, and site verified with staff and physician. All members of the team are in agreement. 9:50:45 Right groin site verified by team. 9:50:49 Fire Safety Assessment: A--An alcohol-based skin anteseptic being used preoperatively., C--Open oxygen or nitrous oxide is being used., D--An ESU, laser, or fiber-optic light is being used. 9:50:53 Physical assessment completed. ASA score P 2 - A patient with mild systemic disease as per Alverto Davis MD. 9:50:56 5) <15 or on dialysis Very severe, or end stage kidney failure. 9:51:07 Maximum allowable contrast does (3.7 X eGFR X 0.75)16.5 ml. 9:51:09 Versed 2 mg I.V. was administered by Itzel Field RN; for sedation; 9:51:11 Sedation plan: IV Moderate Sedation Medication:Versed, Fentanyl 9:51:20 Fentanyl 50 mcg I.V. was administered by Itzel Field RN; for sedation; 9:55:09 last dose of plavix was 11/19/18 9:55:17 Use device set Femoral Dx 9:55:18 ACIST Syringe (76311) opened to sterile field. 9:55:19 Bag Decanter () opened to sterile field. 9:55:21 ACIST Hand Control (77958) opened to sterile field. 9:55:21 ACIST Manifold (73528) opened to sterile field. 9:55:24 Medline Cath Pack ([id number]) opened to sterile field. 9:55:25 Tegaderm 4 x 4 (1626W) opened to sterile field. 9:55:33 SHEATH 5FR [place] (ZIS192) opened to sterile field. 9:55:34 EMERALD Guide Wire (502-533) opened to sterile field. 9:56:07 Procedure started. 9:56:14 Local anesthetic to right femoral artery with Lidocaine 2% by Alverto Davis MD.INITIAL ACCESS ONLY 9:56:21 A 5 Fr sheath was inserted into the Right Femoral artery 9:56:29 Fentanyl 50 mcg I.V. was administered by Itzel Field RN; for sedation; 9:56:32 A DIAGNOSTIC Pigtail 5Fr catheter ([id number]) was advanced over the wire and used for LV Angiography. 9:56:36 LV angiography performed. 9:56:39 LV gram done using LORENZO 9:57:16 EF : 40 % 9:57:17 Catheter removed. 9:57:47 A DIAGNOSTIC JL 5 5Fr catheter ([id number]) was advanced over the wire and used for Left Coronary Angiography. 9:57:52 LCA angiography performed. 9:58:09 Catheter removed. 9:58:18 A DIAGNOSTIC IM 5Fr catheter ([id number]) was advanced over the wire and used for SVG Angiography. 9:58:25 JAMISON to LAD angiography performed. 10:01:57 SHEATH 6FR [place] (HPB057) opened to sterile field. 10:01:57 INFLATOR Merit BasixCompak (IZ6737) opened to sterile field. 10:01:58 GUIDE 6FR DONOVAN 90 catheter ([id number]) opened to sterile field. 10:01:58 CHOICE PT Extra Support 182cm wire ([id number]) opened to sterile field. 10:02:10 Catheter removed. 10:02:15 Sheath upsized to a 6 Fr Short. 10:02:41 Pre PCI Site: JAMISON Graft dLAD has 85% stenosis. 10:02:55 6 Fr DONOVAN guide catheter was inserted over the wire 10:02:59 CPTES wire advanced. 10:03:39 Procedure type changed to Cath procedure, Diagnostic procedure, LHC, LHC w/Coronaries w/Grafts, PCI procedure, AMI/SVG/SIXTH GRADE TEACHER PTCA or Stent, SVG-BMS/WINSTON Initial 10:03:45 Integrilin (Bolus 2mg/ml) 6.2 ml I.V. was administered by Itzel Field RN; for antiplatelet therapy; wasted 3.7mL 10:05:02 Plavix 600 mg P.O. was administered by Itzel Field RN; for antiplatelet therapy; 10:05:37 Inflate balloon Inflation number: 1 A EUPHORA 2.5 x 15 Balloon ([id number]) was prepped and advanced across the JAMISON -> Dist LAD 85, then inflated to 12 KARLY for 0:12 (min:sec) . 10:05:41 Balloon removed over the wire. 10:07:05 Place stent Inflation Number: 2 A SUMIT RX 2.5 x 08 stent ([id number]) was prepped and advanced across the JAMISON -> Dist LAD . The stent was deployed at 13 KARLY for 0:19 (min:sec) 0. 10:07:09 Stent catheter was removed intact over wire. 10:07:09 Wire removed. 10:07:24 SVG to Circ angiography performed. 10:07:48 Guide catheter removed. 10:07:58 Contrast amount:Isovue 370 74ml. 10:08:02 Maximum allowable dose exceeded? Yes. 10:08:09 Sheath removed intact; hemostasis achieved with Exoseal to the Right Femoral artery. 10:08:11 Procedure ended.(Physican Out) 10:08:29 Fluoroscopy time 06.20 minutes. 10:08:34 Flurop Dose total: 430 10:08:34 Fluoroscopy dose: 430 mGy 10:08:36 Sharps counted by scrub and verified by R.N. 10:08:36 Insertion/operative site no bleeding no hematoma. 10:08:39 Post-op/insertion site Right Femoral artery dressed using a 4 x 4 and Tegaderm. 10:08:43 Post right femoral artery:stable 10:08:44 Post Procedure Pulses reassessed and unchanged 10:08:47 Post procedure: right dorsailis pedis pulse 2+ Normal; easily identifiable; not easily obliterated. 10:08:51 Post-procedure physical assessment completed. ASA score P 2 - A patient with mild systemic disease as per Alverto Davis MD. 10:08:54 Post procedure rhythm: sinus rhythm 10:08:56 Post procedure instruction explained to patient.Patient verbalizes understanding. 10:08:57 Procedure and supply charges have been captured, reviewed, submitted and are correct. 10:09:13 EXOSEAL 6Fr (EX600) opened to sterile field. 10:09:32 Procedure Complication : No complications 10:09:34 Vital chart was stopped 10:09:35 See physician's report for complete and final results. 10:09:37 Report given to PCU. 10:09:41 Patient transfered to PCU with Bed. 10:09:43 Procedure ended. 10:09:43 Full Disclosure recording stopped 10:09:47 End room use (Document Last) 10:10:20 ACC-PCI Only Patient was given prescriptions, or instructed by Alverto Davis MD to start/continue the following medications upon discharge: Plavix Intervention Summary Intervention Notes Time ActionType Lesion and Equipment Used Action# Pressure Duration Attributes 10:05:37 Inflate JAMISON -> EUPHORA 2.5 x 1 12 00:12 balloon Dist LAD 15 Balloon ([id number]) 10:07:05 Place stent JAMISON -> SUMIT RX 2.5 x 2 13 00:19 Dist LAD 08 stent ([id number]) Device Usage Item Name Manufacture Quantity Catalog Number Hospital Part Current M inimal Lot# / Charge Number Stock Stock Serial# Code ACIST Syringe Acist 1 57398 696013 126657 770915 2 0 (58961) Medical Systems Inc Bag Decanter Microtek 1 2001S 337254 87067 167736 5 () Medical Inc. ACIST Hand Acist 1 91164 508214 908142 942972 5 Control Medical (62253) Systems Inc ACIST Manifold Acist 1 89387 862897 319250 063946 5 (81256) Medical Systems Inc Medline Cath Medline 1 [id number] 852474 68658 264375 5 Pack ([id number]) Tegaderm 4 x 4 3M 1 1626W 432790 183307 350354 5 (1626W) SHEATH 5FR Terumo 1 TEG400 241533 864145 068878 5 [place] (BJH836) EMERALD Guide Cardinal 1 502-455 127916 241773 248618 5 Wire (502-455) Health DIAGNOSTIC Cardinal 1 [id number] 813422 184561 704775 5 Pigtail 5Fr Health catheter (515405G) DIAGNOSTIC JL Cardinal 1 [id number] 183665 519333 677644 5 5 5Fr catheter Health (578501C) DIAGNOSTIC IM Cardinal 1 [id number] 837987 135361 508428 5 5Fr catheter Health (368877X) SHEATH 6FR Terumo 1 OXJ152 125785 466486 595457 4 0 [place] (OTZ729) INFLATOR Merit Merit 1 FM6376 398500 291534 502939 1 5 8th Story Medical (SJ0106) GUIDE 6FR DONOVAN Medtronic 1 [id number] 022341 93888 492138 1 90 catheter (XJ9FGEE) CHOICE PT [place] 1 [id number] 506619 216123 810471 5 Extra Support Scientific 182cm wire (0650347Z0) EUPHORA 2.5 x Medtronic 1 [id number] 659636 521470 485261 5 [id number] 15 Balloon (KLZ9995D) SUMIT RX 2.5 x Medtronic 1 [id number] 201175 1051217 864517 5 [id number] 08 stent ([id number]) EXOSEAL 6Fr Cardinal 1 EX600 618850 695148 501767 1 0 (EX600) Health Signature Audit [place] Stage Time Signature Unsigned Intra-Procedure 11/21/2018 Yazan TORRES(Ion) 10:12:44 AM Signatures Performing Physician : Signature : Alverto Davis MD Date : Time : Monitor : Rosemarie Posey Signature : RT Date : Time : Nurse : Itzel Field RN Signature : Date : Time : [address] [place] [address]
[~2018-11-20 02:19] MED LIST changes: +ISOSORBIDE MONO30 M1 PO; +RANITIDINE PO; +TYLENOL W/CODEI1 TAB PO; +ZYRTEC10 MG PO
--- NOTE | 2018-11-20 05:27 | NUR ---
PT HAS ARRIVED TO FLOOR BY STRETCHER, NO S/S OF DISTRESS NOTED AT THIS TIME. ANSWERS QUESTIONS APPROPRIATELY. PT STATES HE LAST TOOK A NITRO SUBLINGUAL AT APPROXIMATELY 1700 ON 11/19/2018. PT STATES HE HAS BEEN HAVING WORSENING CHEST PAIN FOR THE PAST 4 TO 5 DAYS.
[2018-11-20 06:51] VITALS: BP 166/87; BMI 22.1
--- NOTE | 2018-11-20 07:15 | NUR ---
RECEIVED PT IN BED EYES CLOSED RESP UNLABORED SKIN W/D COLOR WNL WILL CONTINUE TO MONITOR
[2018-11-20 07:50] LABS: BASOPHILS 0.2 % (0-2); EOSINOPHILS 2.1 % (0-7); HEMATOCRIT 34.1 % (42.0-54.0); HEMOGLOBIN 11.1 g/dL (13.5-17.5); IMMATURE GRANULOCYTES 0.2 % (0-5); LYMPHOCYTES 26.9 % (15-50); MCH 29.9 pg (26.0-34.0); MCHC 32.6 g/dL (31.0-37.0); MCV 91.9 fL (80.0-100.0); MEAN PLATELET VOLUME 10.1 fL (7.4-10.4); MONOCYTES 10.6 % (2-11); PLATELET COUNT 136 10x3/uL (130-400); RBC 3.71 10x6/uL (4.20-6.10); RDW 15.7 % (11.5-14.5); WBC 4.3 10x3/uL (4.8-10.8)
[2018-11-20 08:36] LABS: CALC OSMOLALITY 306 mosm/kg (275-300); CALCIUM 8.2 mg/dL (8.5-10.1); CHLORIDE - SERUM 104 mmol/L (98-107); CREATINE KINASE 56 UL (21-232); CREATININE - SERUM 11.6 mg/dL (0.6-1.3); GLUCOSE 75 mg/dL (74-106); POTASSIUM - SERUM 4.1 mmol/L (3.5-5.1); SODIUM 145 mmol/L (136-145); UREA NITROGEN 67 mg/dL (7-18); eGFR NON AFRICAN AMERICAN 5 mL/min (90-120)
[2018-11-20 08:41] LABS: TROPONIN-I 1.561 ng/mL (0.000-0.060)
[2018-11-20 08:55] VITALS: BP 159/77
--- NOTE | 2018-11-20 09:53 | NUR ---
PT REFUSES TO WEAR SCDs
[2018-11-20 12:49] VITALS: Ht 177.8 cm; Wt 69.9 kg
--- NOTE | 2018-11-20 15:48 | NUR ---
PREOP MEDS GIVEN.
--- NOTE | 2018-11-20 16:55 | NUR ---
Cath procedure cancelled for today. Pt can eat at this time per Dr. Davsi.
[2018-11-20 18:15] VITALS: BP 145/80
--- NOTE | 2018-11-20 19:37 | NUR ---
RESUMING PATIENT CARE. PATIENT RESTING COMFORTABLY IN BED. RESPIRATIONS ARE EVEN AND UNLABORED. NO S/S OF DISTRESS. CALL LIGHT WITHIN REACH. WILL CPOC.
[2018-11-20 20:00] VITALS: BP 143/78
[2018-11-21 04:00] VITALS: BP 136/76
[2018-11-21 08:07] VITALS: BP 157/83
--- NOTE | 2018-11-21 09:30 | NUR ---
PRE-OPS GIVEN. TO [facility] BY BED.
--- NOTE | 2018-11-21 10:40 | NUR ---
BACK FROM FOOT WORKER. B/P 197/106 REPORTED TO GARRICK HU. RIGHT GROIN STABLE WITHOUT BLEEDING OR HEMATOMA NOTED. WILL MONITOR.
--- NOTE | 2018-11-21 11:31 | NUR ---
LEAVING FOR DIALYSIS BY BED.
--- NOTE | 2018-11-21 13:27 | MORECARE ---
CASE MANAGEMENT DISCHARGE SUMMARY PATIENT: PETEY REDDY UNIT: [id number] ADM DATE: 11/20/18 AGE: 68 : 48 SEX: M ROOM/BED: D.2116 AUTHOR: YANNI ADAME PHYSICIAN: REFERRING PHYSICIAN: HEIDI ARCEO MD DATE OF SERVICE: 11/21/18 Discharge Plan Patient Name: PETEY REDDY Facility: [facility]:[place] : 1950 Planned Disposition: Home Anticipated Discharge Date: 11/21/18 Discharge Date: Expected LOS: 1 Initial Reviewer: [email or web address] Initial Review Date: 11/21/2018 Generated: 11/21/18 2:27 pm DCPIA - Discharge Planning Initial Assessment Updated by [email or web address]: Erick Kemp on 11/21/18 1:24 pm * Is the patient Alert and Oriented? Yes * How many steps to enter\exit or inside your home? NONE * PCP DR. HAO RANDALL * Pharmacy [facility] IN [place] * Preadmission Environment Home with Family * ADLs Partial Dependent * Partial ADLs (Assistance needed) Medication Management * Equipment Rolling Walker * Other Equipment NO MEDICAL EQUIPMENT PROVIDER PREFERENCE * List name and contact numbers for known caregivers / representatives who currently or will assist patient after discharge: KELECHI REDDY, , * Verbal permission to speak to the caregivers and representatives has been obtained from the patient. N/A * Community resources currently utilized None * Please name any agencies selected above. BIBE * Additional services required to return to the preadmission environment? No * Can the patient safely return to the preadmission environment? Yes * Has this patient been hospitalized within the prior 30 days at any hospital? No Patient Name: PETEY REDDY Page 63310 at 1327 All edits/amendments must be made on the electronic document DICTATION DATE: 11/21/187 MECHANICAL OPERATOR: [email or web address] 11/21/187 RPT#: [id number] DC DATE: STATUS: ADM IN [facility] [address] [place] [address] END OF REPORT
--- NOTE | 2018-11-21 13:34 | MORECARE ---
CASE MANAGEMENT DISCHARGE SUMMARY PATIENT: PETEY REDDY UNIT: [id number] ADM DATE: 11/20/18 AGE: 68 : 48 SEX: M ROOM/BED: D.2116 AUTHOR: YANNI ADAME PHYSICIAN: REFERRING PHYSICIAN: HEIDI ARCEO MD DATE OF SERVICE: 11/21/18 Discharge Plan Patient Name: PETEY REDDY Facility: [facility]:[place] : 1950 Planned Disposition: Home Anticipated Discharge Date: 11/21/18 Discharge Date: Expected LOS: 1 Initial Reviewer: [email or web address] Initial Review Date: 11/21/2018 Generated: 11/21/18 2:34 pm Comments DCP- Discharge Planning Updated by [email or web address]: Erick Kemp on 11/21/18 12:[address] Patient Name: PETEY REDDY Admission Status: Elective Accout number: [id number] Admission Date: 11-20-2018 : 1950 Admission Diagnosis: Attending: CHUCHO ARCEO Current LOS: 1 Anticipated DC Date: 11-21-2018 Planned Disposition: Home Primary Insurance: MEDICARE A & B Discharge Planning Comments: CM MET WITH PT IN ROOM TO DISCUSS DISCHARGE PLANNING AND NEEDS. PT REPORTS LIVING [facility] HOME DEPENDENTLY ON HIS SISTER WHO MANAGES MEDICATIONS AND WATCHES PT WHEN HE GOES TO THE BATHROOM TO MAKE SURE HE DOES NOT FALL AGAIN. PT STATES HIS SISTER HAS BEEN STAYING WITH HIM FOR MOST OF THE TIME. PT'S COUSIN ASSISTS PT WITH GETTING INTO AND OUT OF THE BATH TUB. PT HAS A ROLLING WALKER WITH NO MEDICAL EQUIPMENT PROVIDER PREFERENCE. PT HAS NO OUTSIDE SERVICES ASSISTING IN THE HOME. CM DISCUSSED AVAILABILITY OF HOME HEALTH, REHAB SERVICES AND MEDICAL EQUIPMENT. PT DENIES DISCHARGE NEEDS, REPORTS HOME HEALTH FINISHED ABOUT 2 WEEKS AGO. PT REPORTS HIS SISTER WILL PICK HIM UP FOR DISCHARGE HOME, HE WILL JUST NEED TO CALL HER WHEN HE IS DISCHARGED. PT PLANS TO DISCHARGE HOME WITH FAMILY ASSISTANCE. PT HAS NO ANTICIPATED DISCHARGE NEEDS, FAMILY TO TRANSPORT HOME. CM TO FOLLOW AND ASSIST IF NEEDED. Rubber Goods Tester: Erick Kemp DCPIA - Discharge Planning Initial Assessment Updated by [email or web address]: Erick Kemp on 11/21/18 1:24 pm * Is the patient Alert and Oriented? Yes * How many steps to enter\exit or inside your home? NONE * PCP DR. HAO RANDALL * Pharmacy [facility] IN [place] * Preadmission Environment Home with Family * ADLs Partial Dependent * Partial ADLs (Assistance needed) Medication Management * Equipment Rolling Walker * Other Equipment NO MEDICAL EQUIPMENT PROVIDER PREFERENCE * List name and contact numbers for known caregivers / representatives who currently or will assist patient after discharge: KELECHI REDDY, SISTER, * Verbal permission to speak to the caregivers and representatives has been obtained from the patient. N/A * Community resources currently utilized None * Please name any agencies selected above. BIBE * Additional services required to return to the preadmission environment? No * Can the patient safely return to the preadmission environment? Yes * Has this patient been hospitalized within the prior 30 days at any hospital? No Last DP export: 11/21/18 12:27 p Patient Name: PETEY REDDY Page 90651 at 1334 All edits/amendments must be made on the electronic document DICTATION DATE: 11/21/181332 HEAT AND FROST INSULATOR: JYOTSNA 11/21/181332 RPT#: [id number] DC DATE: STATUS: ADM IN [facility] [address] [place] [address] END OF REPORT
--- NOTE | 2018-11-21 15:39 | NUR ---
BACK FROM DIALYSIS. VS WNL.
--- NOTE | 2018-11-21 16:46 | NUR ---
IV AND TELEMETRY DCD. DC PLANS GIVEN. UNDERSTANDING VOICED. FAMILY TO LABORER POWERHOUSE IN AM. UNABLE TO GET RIDE HOME THIS PM.
--- NOTE | 2018-11-21 19:31 | NUR ---
RESUMING PATIENT CARE. PATIENT IS ALERT AND ORIENTED. RESPIRATIONS ARE EVEN AND UNLABORED. NO S/S OF DISTRESS. NO C/O PAIN. CALL LIGHT WITHIN REACH. WILL CPOC.
[2018-11-21 20:00] VITALS: BP 137/78
[2018-11-22 04:00] VITALS: BP 133/66
[2018-11-22 06:26] LABS: BASOPHILS 0 % (0-2); EOSINOPHILS 2.1 % (0-7); HEMOGLOBIN 12.3 g/dL (13.5-17.5); IMMATURE GRANULOCYTES 0.4 % (0-5); LYMPHOCYTES 22.3 % (15-50); MCH 29.9 pg (26.0-34.0); MCHC 33.2 g/dL (31.0-37.0); MEAN PLATELET VOLUME 10.9 fL (7.4-10.4); MONOCYTES 13.4 % (2-11); NEUTROPHILS 61.8 % (40-80); PLATELET COUNT 147 10x3/uL (130-400); RBC 4.11 10x6/uL (4.20-6.10); RDW 15.3 % (11.5-14.5); WBC 4.9 10x3/uL (4.8-10.8)
[2018-11-22 06:41] LABS: ANION GAP 13.6 mmol/L (8-16); CALCIUM 7.7 mg/dL (8.5-10.1); CARBON DIOXIDE 28.6 mmol/L (21.0-32.0); CREATININE - SERUM 9.3 mg/dL (0.6-1.3); POTASSIUM - SERUM 4.2 mmol/L (3.5-5.1)
[2018-11-22 08:40] VITALS: BP 127/73
--- NOTE | 2018-11-22 11:43 | NUR ---
IV AND TELEMETRY DCD. DC PLANS GIVEN. UNDERSTANDING VOICED. ESCORTED TO CAR BY W/C.
== END 2018-11-22 11:44 | disposition home or self-care (01) | DRG 246 ==
LOC: D.M2 02:19
PROVIDERS: Internal Medicine Nephrology; ADMIT Internal Medicine Interventional Cardiology; ATTEND Internal Medicine Interventional Cardiology
PROC: B2121ZZ Fluoroscopy of Single Coronary Artery Bypass Graft using Low Osmolar Contrast (ICD-10-PCS; 2018-11-21)
PROC: B2111ZZ Fluoroscopy of Multiple Coronary Arteries using Low Osmolar Contrast (ICD-10-PCS; 2018-11-21)
PROC: B2151ZZ Fluoroscopy of Left Heart using Low Osmolar Contrast (ICD-10-PCS; 2018-11-21)
PROC: B2181ZZ Fluoroscopy of Left Internal Mammary Bypass Graft using Low Osmolar Contrast (ICD-10-PCS; 2018-11-21)
PROC: 027034Z Dilation of Coronary Artery, One Artery with Drug-eluting Intraluminal Device, Percutaneous Approach (ICD-10-PCS; principal; 2018-11-21 15:00)
PROC: 4A023N7 Measurement of Cardiac Sampling and Pressure, Left Heart, Percutaneous Approach (ICD-10-PCS; 2018-11-21 15:00)
DX: I21.4 Non-ST elevation (NSTEMI) myocardial infarction (principal); N18.6 End stage renal disease; T82.855A Stenosis of coronary artery stent, initial encounter; I12.0 Hypertensive chronic kidney disease with stage 5 chronic kidney disease or end stage renal disease; I25.119 Atherosclerotic heart disease of native coronary artery with unspecified angina pectoris; Y83.9 Surgical procedure, unspecified as the cause of abnormal reaction of the patient, or of later complication, without mention of misadventure at the time of the procedure; E78.5 Hyperlipidemia, unspecified; I35.0 Nonrheumatic aortic (valve) stenosis; D63.1 Anemia in chronic kidney disease; I73.9 Peripheral vascular disease, unspecified